=== PATIENT | male | born 1965 | race Caucasian/White ===

== ENCOUNTER 2023-03-17 12:44 | Inpatient (IN) | payer SELFPAY ==
[2023-03-17] VITALS (7 sets, daily range): BP systolic 102–165; BP diastolic 52–84; PULSE 90–114; RESP 17–18; TEMP 36.4–38.2; O2SAT 92–98; BMI 26.5
--- NOTE | 2023-03-17 13:35 | XRR_ITS ---
PROCEDURE INFORMATION: Exam: XR Soft Tissue Neck Exam date and time: 03/17/2023 1:51 PM Age: 58 years old Clinical indication: Cellulitis of neck; Additional info: Spide bite posterior neck, large mass, cellulitis vs abscess TECHNIQUE: Imaging protocol: Radiologic exam of the soft tissues of the neck. COMPARISON: No relevant prior studies available. FINDINGS: Airway: Normal. No abnormal narrowing. Soft tissues: Normal epiglottis. Normal precervical soft tissues. Partially visualized posterior neck soft tissue fullness. Bones/joints: Partially obscured cervical spine. Degenerative changes along the imaged portion. XR/XR soft tissue neck [id number] IMPRESSION: Partially visualized posterior neck soft tissue fullness. Cannot distinguish cellulitis or abscess on this exam. Consider contrast-enhanced neck CT.
--- NOTE | 2023-03-17 14:08 | CTR_ITS ---
PROCEDURE INFORMATION: Exam: CT Neck With Contrast Exam date and time: 03/17/2023 2:58 PM Age: 58 years old Clinical indication: Cellulitis of neck; Additional info: Post soft tissue neck mass vs abscess TECHNIQUE: Imaging protocol: Computed tomography of the neck with contrast. Radiation optimization: All CT scans at this facility use at least one of these dose optimization techniques: automated exposure control; mA and/or kV adjustment per patient size (includes targeted exams where dose is matched to clinical indication); or iterative reconstruction. Contrast material: OMNI 350; Contrast volume: 100 ml; Contrast route: INTRAVENOUS (IV); REPORTING DATA: Count of CT and Cardiac NM exams in prior 12 months: This patient has received 0 known CTs and 0 known cardiac nuclear medicine studies in the 12 months prior to the current study. COMPARISON: CR XR soft tissue neck [id number] 03/17/2023 1:51 PM RADIATION DOSE METRICS: Total DLP (mGy-cm): 231.99 FINDINGS: Paranasal sinuses: Mild left maxillary sinus mucosal thickening. Dental: Multiple carious teeth. Pharynx: Unremarkable. No significant tonsillar enlargement. Larynx: Unremarkable. Epiglottis is normal. Prevertebral and retropharyngeal spaces: Unremarkable. Salivary glands: Normal. Glands are normal in size. Thyroid: Normal. No enlarged or calcified nodules. Lymph nodes: Unremarkable. No lymphadenopathy. Trachea: Visualized trachea is unremarkable. Lungs: Unremarkable as visualized. Bones/joints: No acute fracture. Multilevel cervical spine degenerative changes greatest at C5-C6 with severe right neural foraminal narrowing. Vasculature: Two vessel left aortic arch. Mild atherosclerotic calcification. Soft tissues: Diffuse soft tissue infiltration of the posterior neck subcutaneous layer without rim enhancing fluid collection. This extends along the subjacent musculature without definite intervening fat plane at some areas. 2 cm nodular ill-defined soft tissue density at the upper left anterior chest superficial subcutaneous layer on axial image 105 of series 3. Partially visualized skin thickening also at the left anterior chest, axial image [address]/CT neck w con* [id number] IMPRESSION: 1. Posterior neck soft tissue findings may be seen in the setting of cellulitis. No rim enhancing abscess. There may be some infiltration of the subjacent musculature, although this is difficult to assess on CT. Correlate with clinical findings and consideration for MRI if indicated. 2. Additional left anterior chest nodular abnormalities as above. Recommend direct visualization. 3. Multilevel cervical spine degenerative changes greatest at C5-C6 with severe right neural foraminal narrowing. 4. Multiple carious teeth.
[2023-03-17 14:10] LABS: Basophils # 0.1 10^3/uL (0.0-0.1); Basophils % 0.3 %; Eosinophils # 0.1 10^3/uL (0.0-0.8); Eosinophils % 0.3 %; Hemoglobin 15.1 g/dL (11.7-16.6); Lymphocytes # 1.2 10^3/uL (0.8-4.8); Lymphocytes % 4.9 %; Mean Corpuscular HGB Conc 34.3 g/dL (30.0-36.0); Mean Corpuscular Hemoglobin 28.2 pg (28.0-34.0); Mean Corpuscular Volume 82.1 fl (80-94); Mean Platelet Volume 10.1 fL (7.4-10.4); Monocytes # 0.9 10^3/uL (0.2-0.9); Neutrophils # 20.96 10^3/uL (1.8-7.7); Neutrophils % 89.8 %; Nucleated Red Blood Cells % 0 %; Platelet Count 396 10^3/cmm (130-400); Red Blood Count 5.36 10^6/uL (4.1-5.3); Red Cell Distribution Width 12.3 % (12.1-15.1); White Blood Count 23.3 10^3/uL (4.0-10.0)
--- NOTE | 2023-03-17 14:20 | W.ED.SKABFB ---
HPI - Skin/Abscess/Foreign Bdy General: Chief complaint: Skin/Abscess/Foreign Body Stated complaint: possible spider bite Time Seen by Provider: 03/17/23 13:32 History of Present Illness: Presents to the ER with complaints of possible bitten by christofer smith approximately 1 week ago. Patient has 3 bite wounds 1 on the back of his posterior neck 2 on left anterior chest all of these are red swollen irritated and tender to palpation. Patient reports some weakness starting today along with nausea and vomiting secondary to the pain. Patient did not see the spider bite him and he has never had a thing like this before. Review of Systems General: Reports: 10 or more systems reviewed and unremarkable except in HPI and below Physical Exam Const: COMMON NORMALS: no acute distress, average body habitus, patient oriented x3, healthy appearing, alert and well nourished HENMT: COMMON NORMALS: normocephalic, atraumatic, hearing grossly normal bilaterally, external ears normal, Normal external nose present and moist oral mucous membranes HEAD & SCALP: normocephalic and atraumatic NOSE: Normal external nose present EXTERNAL EAR: Yes external ears normal Neck/C-Spine: COMMON NORMALS: no JVD OTHER: There is a very large approximately 10 cm x 16 cm x 2 cm soft tissue mass which could be induration/cellulitis or an abscess although no parris fluctuance was noted. The area is erythematous indurated and tender to palpate. Chest: COMMONS NORMALS: normal inspection of the chest (There are 2 soft tissue masses which could be abscesses versus indurated ce) and normal palpation of entire chest wall OTHER: Abscesses versus indurated/cellulitis areas. There is no gross fluctuance there is moderate erythema and tender to palpate Resp: COMMON NORMALS: normal respiratory effort, No retractions, No use of accessory muscles and clear to auscultation bilaterally AUSCULTATION: clear to auscultation bilaterally Cardio: COMMON NORMALS: no JVD, regular rate, regular rhythm, S1 normal heart sound present, S2 normal heart sound present, No gallops present (Cardio), No clicks present (Cardio), No murmurs present (Cardio) and No rub (Cardio) RATE: regular rate RHYTHM: regular rhythm HEART SOUNDS: S1 normal heart sound present and S2 normal heart sound present GI: COMMON NORMALS: Normal to inspection, nondistended, normoactive bowel sounds present, Soft to palpation, non-tender, No hepatosplenomegaly present and no masses PALPATION: Yes Soft to palpation and Yes No hepatosplenomegaly present : COMMON NORMALS: Yes no CVA tenderness BLADDER/KIDNEY EXAM: Yes no CVA tenderness Back/Pelvis: COMMON NORMALS: no CVA tenderness Neuro: COMMON NORMALS: patient oriented x3 SENSORIUM/ORIENTATION: Yes alert Course Vital Signs: Vital signs: Vital Signs Temperature 97.5 F L 03/17/23 13:01 Pulse Rate 103 H 03/17/23 14:00 Respiratory Rate 18 03/17/23 14:00 Blood Pressure 117/82 03/17/23 14:00 Pulse Oximetry 97 03/17/23 14:00 Oxygen Delivery Me thod Room Air 03/17/23 14:00 MDM - Skin/Abscess/Foreign Bdy Medicial Decision Making Presents to the ER with complaints of possible spider bite on the back of his neck and 2 times on his left chest wall. Physical exam was performed lab work was obtained as well as ultrasound and CT. White blood cell was raised at 23,000 and sugar was raised at 396 and lactic acid was 2.9. CRP was 347 patient was bolused with 2 L normal saline fluid, 10 units of IV insulin and 3.375 g of Zosyn was given. Dr. Call was consulted for further evaluation and treatment. Dr. Call agreed for admission with observation for IV antibiotics. Differential Diagnosis Likely abscess of skin or subcutaneous tissue, cellulitis and insect bites; Unlikely viral exanthem, dermatophytosis, urticaria, herpes zoster, allergic reaction to drug, eczema, impetigo or contact dermatitis Medical Records I reviewed the patient's medical records. Lab Data I reviewed the patient's lab results. 03/17/23 13:51 03/17/23 13:51 Radiology Impressions Soft Tissue Neck X-Ray 03/17/23 13:35 IMPRESSION: Partially visualized posterior neck soft tissue fullness. Cannot distinguish cellulitis or abscess on this exam. Consider contrast-enhanced neck CT. Neck CT 03/17/23 14:08 IMPRESSION: 1. Posterior neck soft tissue findings may be seen in the setting of cellulitis. No rim enhancing abscess. There may be some infiltration of the subjacent musculature, although this is difficult to assess on CT. Correlate with clinical findings and consideration for MRI if indicated. 2. Additional left anterior chest nodular abnormalities as above. Recommend direct visualization. 3. Multilevel cervical spine degenerative changes greatest at C5-C6 with severe right neural foraminal narrowing. 4. Multiple carious teeth. Laboratory Results WBC 23.3 10^3/uL (4.0-10.0) H 03/17/23 13:51 RBC 5.36 10^6/uL (4.1-5.3) H 03/17/23 13:51 Hgb 15.1 g/dL (11.7-16.6) 03/17/23 13:51 Hct 44.0 % (42.0-52.0) 03/17/23 13:51 MCV 82.1 fl (80-94) 03/17/23 13:51 MCH 28.2 pg (28.0-34.0) 03/17/23 13:51 MCHC 34.3 g/dL (30.0-36.0) 03/17/23 13:51 RDW 12.3 % (12.1-15.1) 03/17/23 13:51 Plt Count 396 10^3/cmm (130-400) 03/17/23 13:51 MPV 10.1 fL (7.4-10.4) 03/17/23 13:51 Neut % (Auto) 89.8 % 03/17/23 13:51 Lymph % (Auto) 4.9 % 03/17/23 13:51 Maverick % (Auto) 4.0 % 03/17/23 13:51 Eos % (Auto) 0.3 % 03/17/23 13:51 Baso % (Auto) 0.3 % 03/17/23 13:51 Neut # (Auto) 20.96 10^3/uL (1.8-7.7) H 03/17/23 13:51 Lymph # (Auto) 1.2 10^3/uL (0.8-4.8) 03/17/23 13:51 Maverick # (Auto) 0.9 10^3/uL (0.2-0.9) 03/17/23 13:51 Eos # (Auto) 0.1 10^3/uL (0.0-0.8) 03/17/23 13:51 Baso # (Auto) 0.1 10^3/uL (0.0-0.1) 03/17/23 13:51 Nucleated RBC % (auto) 0 % 03/17/23 13:51 Nucleated RBCs # 0.0 /100WBC 03/17/23 13:51 Sodium 129 mmol/L (136-145) L 03/17/23 13:51 Potassium 4.2 mmol/L (3.5-5.1) 03/17/23 13:51 Chloride 89 mmol/L (98-107) L 03/17/23 13:51 Carbon Dioxide 25 mmol/L (22-29) 03/17/23 13:51 Anion Gap 19.2 (5-19) H 03/17/23 13:51 BUN 15 mg/dL (8-23) 03/17/23 13:51 Creatinine 0.9 mg/dL (0.7-1.2) 03/17/23 13:51 GFR Calculation 86.1 mL/min (90-130) L 03/17/23 13:51 Glucose 396 mg/dL (65-115) H 03/17/23 13:51 Calculated Osmolality 285 mOsm/kg (285-295) 03/17/23 13:51 Lactic Acid 2.9 mmol/L (0.5-2.2) H 03/17/23 13:51 Calcium 9.9 mg/dL (8.5-10.5) 03/17/23 13:51 Total Bilirubin 0.6 mg/dL (0.15-1.2) 03/17/23 13:51 AST 17 U/L (0-40) 03/17/23 13:51 ALT 13 U/L (0-41) 03/17/23 13:51 Alkaline Phosphatase 214 U/L (40-130) H 03/17/23 13:51 C-Reactive Protein 347.8 mg/L (0.0-4.9) H 03/17/23 13:51 Total Protein 8.8 g/dL (6.6-8.7) H 03/17/23 13:51 Albumin 4.3 g/dL (3.5-5.2) 03/17/23 13:51 Globulin 4.5 g/dL (1.3-4.6) 03/17/23 13:51 Procalcitonin 0.33 ng/mL (0-0.5) 03/17/23 13:51 Discharge Plan Discharge Patient Disposition: Placed in Observation Clinical Impression: Cellulitis, Acute hyperglycemia, Elevated lactic acid level, Acute hyponatremia Condition: Stable Prescriptions: No Action acetaminophen 500 mg Tablet 1,000 mg PO Q6H PRN (Reason: Pain) Referrals: Champ Gregory MD [Primary Care Provider] - Coding Level of Care Code ED Dietary Worker for [facility]
[2023-03-17 14:23] LABS: Lactic Sepsis W/Reflex 2.9 mmol/L (0.5-2.2)
[2023-03-17] MEDS: ketorolac 30 mg/mL INJ IVP (14:25)
[2023-03-17 14:34] LABS: Alanine Aminotransferase 13 U/L (0-41); Albumin Level 4.3 g/dL (3.5-5.2); Alkaline Phosphatase 214 U/L (40-130); Anion Gap 19.2 (5-19); Aspartate Amino Transferase 17 U/L (0-40); Blood Urea Nitrogen 15 mg/dL (8-23); C Reactive Protein 347.8 mg/L (0.0-4.9); Calcium 9.9 mg/dL (8.5-10.5); Carbon Dioxide 25 mmol/L (22-29); Chloride 89 mmol/L (98-107); Globulin 4.5 g/dL (1.3-4.6); Glomerular Filtration Rate 86.1 mL/min (90-130); Glucose 396 mg/dL (65-115); Osmolality Calculated 285 mOsm/kg (285-295); Potassium 4.2 mmol/L (3.5-5.1); Sodium 129 mmol/L (136-145); Total Bilirubin 0.6 mg/dL (0.15-1.2); Total Protein 8.8 g/dL (6.6-8.7)
[2023-03-17 14:41] LABS: Procalcitonin 0.33 ng/mL (0-0.5)
[2023-03-17] MEDS: iohexol 350 mg/mL 500 mL Btl (per mL) IV (15:02)
[2023-03-17] MEDS: sodium chloride 0.9% 1,000 ML 999 ML IV ×2 (15:07→16:59)
[2023-03-17] MEDS: insulin regular-human 100 units/1 mL 10 UNIT IVP (15:36)
[2023-03-17 15:50] LABS: Reflex Lactate Order REFLEX LACTIC ORDERD
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
[2023-03-17] MEDS: piperacillin-tazobactam 3.375 GM in sodium chloride 0.9% (plus) 50 ML IV (15:58)
[2023-03-17 16:46] LABS: INR 1.15 (0.8-1.2)
[2023-03-17 16:53] LABS: Creatine Phosphokinase 38 U/L (39-308)
[2023-03-17 17:36] LABS: Lactic Acid level (Lactate) 1.8 mmol/L (0.5-2.2)
[2023-03-17] MEDS: cefTRIAXone 2,000 MG in sodium chloride 0.9% (plus) 50 ML 100 MG IV (19:13)
[2023-03-17 20:14] LABS: Estmated Average Glucose 249; Hemoglobin A1C 10.3 % (4.0-6.0)
[2023-03-17] MEDS: vancomycin 1,250 MG/250 ML PIGGYBACK 250 MG IV (20:25)
[2023-03-17] MEDS: oxyCODONE-APAP 5-325 mg Tablet 1 TAB PO (23:15)
[2023-03-18] VITALS (8 sets, daily range): BP systolic 123–168; BP diastolic 77–93; PULSE 91–102; RESP 15–19; TEMP 36.8–38.2; O2SAT 93–97
[2023-03-18 05:16] LABS: Basophils # 0.1 10^3/uL (0.0-0.1); Basophils % 0.3 %; Eosinophils # 0.1 10^3/uL (0.0-0.8); Eosinophils % 0.4 %; Hematocrit 37.2 % (42.0-52.0); Hemoglobin 12.7 g/dL (11.7-16.6); Lymphocytes % 4.4 %; Mean Corpuscular HGB Conc 34.1 g/dL (30.0-36.0); Mean Corpuscular Hemoglobin 28.1 pg (28.0-34.0); Mean Corpuscular Volume 82.3 fl (80-94); Monocytes # 1.5 10^3/uL (0.2-0.9); Monocytes % 6.3 %; Neutrophils # 20.41 10^3/uL (1.8-7.7); Neutrophils % 86.4 %; Nucleated Red Blood Cells % 0 %; Platelet Count 329 10^3/cmm (130-400); Red Blood Count 4.52 10^6/uL (4.1-5.3); Red Cell Distribution Width 12.2 % (12.1-15.1); White Blood Count 23.7 10^3/uL (4.0-10.0)
[2023-03-18 05:34] LABS: Anion Gap 16.2 (5-19); Blood Urea Nitrogen 10 mg/dL (8-23); Calcium 8.7 mg/dL (8.5-10.5); Carbon Dioxide 23 mmol/L (22-29); Chloride 95 mmol/L (98-107); Glomerular Filtration Rate 98.6 mL/min (90-130); Glucose 298 mg/dL (65-115); Magnesium 1.8 mg/dL (1.7-2.3); Osmolality Calculated 280 mOsm/kg (285-295); Phosphorus 2.8 mg/dL (2.5-4.5); Potassium 4.2 mmol/L (3.5-5.1); Sodium 130 mmol/L (136-145)
[2023-03-18] MEDS: vancomycin 1,250 MG/250 ML PIGGYBACK 250 MG IV ×2 (06:06→18:11)
[2023-03-18] MEDS: oxyCODONE-APAP 5-325 mg Tablet 1 TAB PO ×3 (07:55→16:59)
--- NOTE | 2023-03-18 15:15 | P.PN_ITS ---
Subjective Subjective: Patient reports night sweats overnight. Reports neck pain, swelling and erythema is about the same as yesterday. Discussed diagnosis of type 2 diabetes mellitus which is currently uncontrolled with an A1c of 10.3. We discussed initial management of diabetes and the various different treatment options. Multiple questions were answered to both patient and his 2 friends present. He denies any fevers, chills, nausea or emesis. Vitals/I&O/Wt Last Vital Signs Temp 100.8 F H 03/18/23 12:00 Pulse 91 03/18/23 12:00 Resp 16 03/18/23 12:00 BP 123/78 03/18/23 12:00 Pulse Ox 96 03/18/23 12:00 O2 Del Method Room Air 03/18/23 03:16 03/18/23 03/18/23 03/18/23 06:59 14:59 22:59 Intake Total 730 / 730 Balance 730 / 730 Weight last 48 hrs Weight 83.915 kg Physical Exam Narrative: General: Patient is awake and alert. Lying in bed. Appears fatigued. Head: Normocephalic. Atraumatic. EOM intact. Neck: No JVD. Persistent circular area on posterior neck that is raised, e dematous, and erythemic. The same area is tender to palpation. Presentation is similar to yesterday's exam with minimal change. Cardiovascular: RRR. No gallops. No murmurs. Chest: Multiple areas similar to the area on his posterior neck circular edematous and erythemic areas. These areas are also tender to palpation. These look similar to yesterday's presentation without significant change. Lungs: Clear to auscultation, no use of accessory muscles, no crackles or wheezes. Skin: No jaundice. No rashes. Abdomen: Normal bowel sounds, abdomen soft and nontender. Extremities: No cyanosis or clubbing. Musculoskeletal: No erythematous joints. Neurological: Moves all 4 extremities. No myoclonus. Data 03/18/23 04:52 03/18/23 04:52 Micro: Microbiology 03/17/23 14:11 Blood Culture - Preliminary Blood NEGATIVE TO DATE 03/17/23 13:51 Blood Culture - Preliminary Blood NEGATIVE TO DATE A&P Assessment and plan (1) Cellulitis: Patient is persistently febrile currently 100.8 Multiple areas of cellulitis including posterior neck and multiple lesions on left upper chest Suspect initial insult with some type of bite Blood cultures are pending Persistent leukocytosis Little or no change on physical exam, patient not responding to treatment as well as intended Continue vancomycin, pharmacy to dose (03/17-P) Continue Rocephin () Serial exams Analgesics as needed Qualifiers: Site of cellulitis: neck Qualified Code(s): L03.221 - Cellulitis of neck (2) Acute hyperglycemia: Newly diagnosed type 2 diabetes mellitus, uncontrolled with hyperglycemia A1c 10.3 Patient reports family history of type 2 diabetes in his mother Starting diabetes education Start Lantus tonight Start sliding scale insulin correction (3) Elevated lactic acid level: Secondary to infection Continue antibiotics (4) Acute hyponatremia: Working on glycemic control for pseudohyponatremia (5) Leukocytosis: Marked leukocytosis secondary to significant infection Plan DVT prophylaxis: Low risk CODE STATUS: Full code Attestations Medical Necessity Statement*: Patient requires ongoing hospitalization for IV antibiotics, insulin titration, and supportive care. Coding Level of Care Code Acute Code for [facility] Diagnoses Cellulitis L03.221 Site of cellulitis: neck Acute hyperglycemia R73.9 Elevated lactic acid level R79.89 Acute hyponatremia E87.1 Leukocytosis D72.829
--- NOTE | 2023-03-18 15:19 | PM.TDS ---
Transfer Summary Providers Date of Admission: 03/17/23 17:28 Date of Discharge/Transfer: 03/18/23 Attending Provider at Admission: Porfirio Call MD Attending Provider at Transfer: Porfirio Call MD Primary Care Provider: Champ Gregory MD Transfer Plans: Anticipated date of transfer: 03/18/23. Diagnoses at Discharge Discharge Diagnosis (1) Cellulitis: Status: Acute Qualifiers: Site of cellulitis: neck Qualified Code(s): L03.221 - Cellulitis of neck (2) Acute hyperglycemia: Status: Acute (3) Elevated lactic acid level: Status: Acute (4) Acute hyponatremia: Status: Acute (5) Leukocytosis: Status: Acute Reason for Visit Reason for Visit possible spider bite TS Data Studies Completed and Pending Pending at discharge Category Date Time Status Blood Culture Stat Lab 03/17/23 14:11 Results Vancomycin Trough Timed Lab 03/19/23 06:00 Ordered Labs from last 24 hours 03/18/23 03/18/23 03/17/23 04:52 04:52 17:02 WBC 23.7 H RBC 4.52 Hgb 12.7 Hct 37.2 L MCV 82.3 MCH 28.1 MCHC 34.1 RDW 12.2 Plt Count 329 MPV 10.0 Neut % (Auto) 86.4 Lymph % (Auto) 4.4 [place] % (Auto) 6.3 Eos % (Auto) 0.4 Baso % (Auto) 0.3 Neut # (Auto) 20.41 H Lymph # (Auto) 1.0 [place] # (Auto) 1.5 H Eos # (Auto) 0.1 Baso # (Auto) 0.1 Nucleated RBC % (auto) 0 Nucleated RBCs # 0.0 PT INR Sodium 130 L Potassium 4.2 Chloride 95 L Carbon Dioxide 23 Anion Gap 16.2 BUN 10 Creatinine 0.8 GFR Calculation 98.6 Glucose 298 H Estimat Average Glucose Hemoglobin A1c Calculated Osmolality 280 L Lactic Acid (Sepsis) 1.8 Calcium 8.7 Phosphorus 2.8 Magnesium 1.8 Creatine Kinase 03/17/23 03/17/23 03/17/23 13:51 13:51 13:51 WBC RBC Hgb Hct MCV MCH MCHC RDW Plt Count MPV Neut % (Auto) Lymph % (Auto) [place] % (Auto) Eos % (Auto) Baso % (Auto) Neut # (Auto) Lymph # (Auto) [place] # (Auto) Eos # (Auto) Baso # (Auto) Nucleated RBC % (auto) Nucleated RBCs # PT 15.10 H INR 1.15 Sodium Potassium Chloride Carbon Dioxide Anion Gap BUN Creatinine GFR Calculation Glucose Estimat Average Glucose 249 Hemoglobin A1c 10.3 H Calculated Osmolality Lactic Acid (Sepsis) Calcium Phosphorus Magnesium Creatine Kinase 38 L Completed Studies During Hospitalization Category Date Time Status CT neck w con* [id number] Stat Cat Scan 03/17/23 14:08 Completed XR soft tissue neck [id number] Stat Exams 03/17/23 13:35 Completed Laboratory Last Values WBC 23.7 10^3/uL (4.0-10.0) H 03/18/23 04:52 RBC 4.52 10^6/uL (4.1-5.3) 03/18/23 04:52 Hgb 12.7 g/dL (11.7-16.6) 03/18/23 04:52 Hct 37.2 % (42.0-52.0) L 03/18/23 04:52 MCV 82.3 fl (80-94) 03/18/23 04:52 MCH 28.1 pg (28.0-34.0) 03/18/23 04:52 MCHC 34.1 g/dL (30.0-36.0) 03/18/23 04:52 RDW 12.2 % (12.1-15.1) 03/18/23 04:52 Plt Count 329 10^3/cmm (130-400) 03/18/23 04:52 MPV 10.0 fL (7.4-10.4) 03/18/23 04:52 Neut % (Auto) 86.4 % 03/18/23 04:52 Lymph % (Auto) 4.4 % 03/18/23 04:52 [place] % (Auto) 6.3 % 03/18/23 04:52 Eos % (Auto) 0.4 % 03/18/23 04:52 Baso % (Auto) 0.3 % 03/18/23 04:52 Neut # (Auto) 20.41 10^3/uL (1.8-7.7) H 03/18/23 04:52 Lymph # (Auto) 1.0 10^3/uL (0.8-4.8) 03/18/23 04:52 [place] # (Auto) 1.5 10^3/uL (0.2-0.9) H 03/18/23 04:52 Eos # (Auto) 0.1 10^3/uL (0.0-0.8) 03/18/23 04:52 Baso # (Auto) 0.1 10^3/uL (0.0-0.1) 03/18/23 04:52 Nucleated RBC % (auto) 0 % 03/18/23 04:52 Nucleated RBCs # 0.0 /100WBC 03/18/23 04:52 PT 15.10 SECONDS (12.1-14.9) H 03/17/23 13:51 INR 1.15 (0.8-1.2) 03/17/23 13:51 Sodium 130 mmol/L (136-145) L 03/18/23 04:52 Potassium 4.2 mmol/L (3.5-5.1) 03/18/23 04:52 Chloride 95 mmol/L (98-107) L 03/18/23 04:52 Carbon Dioxide 23 mmol/L (22-29) 03/18/23 04:52 Anion Gap 16.2 (5-19) 03/18/23 04:52 BUN 10 mg/dL (8-23) 03/18/23 04:52 Creatinine 0.8 mg/dL (0.7-1.2) 03/18/23 04:52 GFR Calculation 98.6 mL/min (90-130) 03/18/23 04:52 Glucose 298 mg/dL (65-115) H 03/18/23 04:52 Estimat Average Glucose 249 03/17/23 13:51 Hemoglobin A1c 10.3 % (4.0-6.0) H 03/17/23 13:51 Calculated Osmolality 280 mOsm/kg (285-295) L 03/18/23 04:52 Lactic Acid 2.9 mmol/L (0.5-2.2) H 03/17/23 13:51 Lactic Acid (Sepsis) 1.8 mmol/L (0.5-2.2) 03/17/23 17:02 Calcium 8.7 mg/dL (8.5-10.5) 03/18/23 04:52 Phosphorus 2.8 mg/dL (2.5-4.5) 03/18/23 04:52 Magnesium 1.8 mg/dL (1.7-2.3) 03/18/23 04:52 Total Bilirubin 0.6 mg/dL (0.15-1.2) 03/17/23 13:51 AST 17 U/L (0-40) 03/17/23 13:51 ALT 13 U/L (0-41) 03/17/23 13:51 Alkaline Phosphatase 214 U/L (40-130) H 03/17/23 13:51 Creatine Kinase 38 U/L (39-308) L 03/17/23 13:51 C-Reactive Protein 347.8 mg/L (0.0-4.9) H 03/17/23 13:51 Total Protein 8.8 g/dL (6.6-8.7) H 03/17/23 13:51 Albumin 4.3 g/dL (3.5-5.2) 03/17/23 13:51 Globulin 4.5 g/dL (1.3-4.6) 03/17/23 13:51 Procalcitonin 0.33 ng/mL (0-0.5) 03/17/23 13:51 Radiology Impressions Soft Tissue Neck X-Ray 03/17/23 13:35 IMPRESSION: Partially visualized posterior neck soft tissue fullness. Cannot distinguish cellulitis or abscess on this exam. Consider contrast-enhanced neck CT. Neck CT 03/17/23 14:08 IMPRESSION: 1. Posterior neck soft tissue findings may be seen in the setting of cellulitis. No rim enhancing abscess. There may be some infiltration of the subjacent musculature, although this is difficult to assess on CT. Correlate with clinical findings and consideration for MRI if indicated. 2. Additional left anterior chest nodular abnormalities as above. Recommend direct visualization. 3. Multilevel cervical spine degenerative changes greatest at C5-C6 with severe right neural foraminal narrowing. 4. Multiple carious teeth. Recent Clincial Data Last Vital Signs Temp 100.8 F H 03/18/23 12:00 Pulse 91 03/18/23 12:00 Resp 16 03/18/23 12:00 BP 123/78 03/18/23 12:00 Pulse Ox 96 03/18/23 12:00 O2 Del Method Room Air 03/18/23 03:16 Vital Signs Temp Pulse Resp BP Pulse Ox 03/18/23 12:00 100.8 F H 91 16 123/78 96 03/18/23 11:41 16 96 03/18/23 08:00 98.6 F 102 H 16 131/77 96 03/18/23 07:55 18 97 Intake & Output/Weight 03/16/23 03/17/23 03/18/23 03/19/23 06:59 06:59 06:59 06:59 Intake Total 2350 / 2350 730 / 730 Balance 2350 / 2350 730 / 730 Weight 83.915 kg Vitals Last Vital Signs Temp 100.8 F H 03/18/23 12:00 Pulse 91 03/18/23 12:00 Resp 16 03/18/23 12:00 BP 123/78 03/18/23 12:00 Pulse Ox 96 03/18/23 12:00 O2 Del Method Room Air 03/18/23 03:16 TS Medications Medications Acetaminophen (Acetaminophen 500 Mg Tablet) 1,000 mg PO Q6H PRN PRN Reason: Pain Calcium Carbonate (Calcium Carbonate 500 Mg Chew Tablet) 1,000 mg PO Q4H PRN PRN Reason: DYSPEPSI Dextrose (Dextrose 50% Syringe 50 Ml) 50 ml IVP PRN PRN; Protocol PRN Reason: hypoglycemia protocol Dextrose (Dextrose 50% Syringe 50 Ml) 25 ml IVP ONCE PRN; Protocol PRN Reason: hypoglycemia protocol Glucagon (Glucagon 1 Mg/Ml Inj 1 Ml) 1 mg IM ONCE PRN; Protocol PRN Reason: Adult Acute Hypoglycemia Prot. Vancomycin/PEG/NADA/Lysine/Water (Vancocin) 1,250 mg in 250 mls @ 250 mls/hr IV Q12H JAQUELINE Last Infusion: 03/18/23 07:39 Dose: Infused Dextrose (D5w) 500 mls @ 100 mls/hr IV ONCE PRN; Protocol PRN Reason: Adult Acute Hypoglycemia Prot Ceftriaxone Sodium 2,000 mg/ (Sodium Chloride) 50 mls @ 100 mls/hr IV Q24H JAQUELINE; Protocol Insulin Glargine (Insulin Glargine 100 Units/1 Ml) 10 unit SUBCUT BEDTIME JAQUELINE Insulin Human Lispro (Insulin Lispro 100 Unit/1 Ml) 0 unit SUBCUT WM&BEDTIME JAQUELINE; Protocol Ketorolac Tromethamine (Ketorolac 30 Mg/Ml Inj) 15 mg IVP Q6H PRN PRN Reason: MODERATE PAIN Stop: 03/22/23 18:30 Ondansetron HCl (Ondansetron 4 Mg Tablet) 4 mg PO Q8H PRN PRN Reason: NAUSEA Oxycodone/Acetaminophen (Oxycodone-Apap 5-325 Mg Tablet) 1 tab PO Q4H PRN PRN Reason: SEVERE PAIN Last Admin: 03/18/23 11:41 Dose: 1 tab Discontinued Medications Sodium Chloride (Sodium Chloride 0.9%) 1,000 mls @ 999 mls/hr IV .Q1H1M JAQUELINE Stop: 03/17/23 16:45 Last Infusion: 03/17/23 18:28 Dose: Infused Piperacillin Sod/Tazobactam (Sod 3.375 gm/ Sodium Chloride) 50 mls @ 100 mls/hr IV ONCE ONE; Protocol Stop: 03/17/23 16:04 Last Infusion: 03/17/23 16:36 Dose: Infused Ceftriaxone Sodium 2,000 mg/ (Sodium Chloride) 50 mls @ 100 mls/hr IV ONCE ONE; Protocol Stop: 03/17/23 19:00 Last Infusion: 03/17/23 20:35 Dose: Infused Insulin Human Regular (Insulin Regular-Human 100 Units/1 Ml) 10 unit IVP ONCE ONE Stop: 03/17/23 15:24 Last Admin: 03/17/23 15:36 Dose: 10 unit Iohexol (Iohexol 350 Mg/Ml 500 Ml Btl (Per Ml)) 0 ml IV ONCE ONE Stop: 03/17/23 15:03 Last Admin: 03/17/23 15:02 Dose: 100 ml Ketorolac Tromethamine (Ketorolac 30 Mg/Ml Inj) 30 mg IVP ONCE ONE Stop: 03/17/23 14:21 Last Admin: 03/17/23 14:25 Dose: 30 mg Allergies No Known Allergies Allergy (Verified 03/17/23 16:16) Home Medications acetaminophen 500 mg tablet 1,000 mg PO Q6H PRN Pain 03/17/23 [History Confirmed 03/17/23] Discharge Plan Discharge Patient Disposition: Home Condition: Stable Prescriptions: No Action acetaminophen 500 mg Tablet 1,000 mg PO Q6H PRN (Reason: Pain) Patient Instructions: Opioid Safety Coding Level of Care Code Acute Code for [facility] Diagnoses Cellulitis L03.221 Site of cellulitis: neck Acute hyperglycemia R73.9 Elevated lactic acid level R79.89 Acute hyponatremia E87.1 Leukocytosis D72.829
[2023-03-18] MEDS: insulin lispro 100 unit/1 mL SUBCUT ×2 (17:00→20:45)
[2023-03-18] MEDS: cefTRIAXone 2,000 MG in sodium chloride 0.9% (plus) 50 ML 100 MG IV (17:00)
[2023-03-18 17:02] LABS: Glucose Point of Care 326 mg/dL (70-110)
[2023-03-18 20:38] LABS: Glucose Point of Care 237 mg/dL (70-110)
[2023-03-18] MEDS: insulin glargine 100 units/1 mL 10 UNIT SUBCUT (20:44)
[2023-03-19] VITALS (7 sets, daily range): BP systolic 125–147; BP diastolic 66–78; PULSE 82–86; RESP 16–19; TEMP 35.8–37.2; O2SAT 93–100
[2023-03-19] MEDS: oxyCODONE-APAP 5-325 mg Tablet 1 TAB PO ×3 (01:10→17:24)
[2023-03-19 06:03] LABS: Basophils % 0.2 %; Eosinophils # 0.2 10^3/uL (0.0-0.8); Eosinophils % 0.8 %; Hematocrit 34.7 % (42.0-52.0); Hemoglobin 11.7 g/dL (11.7-16.6); Lymphocytes # 1.2 10^3/uL (0.8-4.8); Lymphocytes % 5.5 %; Mean Corpuscular HGB Conc 33.7 g/dL (30.0-36.0); Mean Corpuscular Hemoglobin 27.9 pg (28.0-34.0); Mean Corpuscular Volume 82.6 fl (80-94); Mean Platelet Volume 9.7 fL (7.4-10.4); Monocytes # 1.1 10^3/uL (0.2-0.9); Monocytes % 5.3 %; Neutrophils # 18.26 10^3/uL (1.8-7.7); Neutrophils % 87.1 %; Nucleated Red Blood Cells % 0 %; Platelet Count 316 10^3/cmm (130-400); Red Cell Distribution Width 12.2 % (12.1-15.1)
[2023-03-19] MEDS: vancomycin 1,250 MG/250 ML PIGGYBACK 250 MG IV (06:10)
[2023-03-19 06:19] LABS: Alanine Aminotransferase 11 U/L (0-41); Albumin Level 2.8 g/dL (3.5-5.2); Alkaline Phosphatase 118 U/L (40-130); Anion Gap 13.7 (5-19); Aspartate Amino Transferase 12 U/L (0-40); Blood Urea Nitrogen 9 mg/dL (8-23); Calcium 8.8 mg/dL (8.5-10.5); Carbon Dioxide 26 mmol/L (22-29); Chloride 93 mmol/L (98-107); Globulin 3.6 g/dL (1.3-4.6); Glucose 150 mg/dL (65-115); Magnesium 1.8 mg/dL (1.7-2.3); Osmolality Calculated 270 mOsm/kg (285-295); Phosphorus 3.3 mg/dL (2.5-4.5); Potassium 3.7 mmol/L (3.5-5.1); Sodium 129 mmol/L (136-145); Total Bilirubin 0.3 mg/dL (0.15-1.2); Total Protein 6.4 g/dL (6.6-8.7)
[2023-03-19 06:42] LABS: Glucose Point of Care 140 mg/dL (70-110)
--- NOTE | 2023-03-19 10:51 | PM.PN ---
Subjective Subjective: Patient endorses persistent night sweats overnight. Reports increased drainage from posterior neck wound, now with bandage over wound due to drainage. States the wounds on his chest seem to be a little better. Denies fevers, chills, nausea, abdominal pain or headaches. Medications: Reviewed: Yes Vitals/I&O/Wt Last Vital Signs Temp 98.9 F 03/19/23 04:25 Pulse 83 03/19/23 04:25 Resp 16 03/19/23 06:33 BP 137/66 03/19/23 04:25 Pulse Ox 96 03/19/23 06:33 O2 Del Method Room Air 03/18/23 03:16 03/18/23 03/19/23 03/19/23 22:59 06:59 14:59 Intake Total 660 / 1390 250 / 250 Balance 660 / 1390 250 / 250 Weight last 48 hrs Weight 83.915 kg Physical Exam Narrative: General: Patient is awake and alert.? Lying in bed.? Head:? Normocephalic. Atraumatic. Neck: No JVD.? Persistent circular area on posterior neck that is raised, edematous, and erythemic, now with yellowish-white pus draining through skin breaks.? Cardiovascular: RRR. No gallops. No murmurs. Chest: Multiple areas similar to the area on his posterior neck circular edematous and erythemic areas.? These areas are showing signs of improvement, albiet mild. Lungs: Clear to auscultation, no use of accessory muscles, no crackles or wheezes. Skin: No jaundice. No rashes. Abdomen: Normal bowel sounds, abdomen soft and nontender. Extremities: No cyanosis or clubbing. Musculoskeletal: No erythematous joints. Neurological: Moves all 4 extremities. No myoclonus. Data 03/19/23 05:53 03/19/23 05:53 Micro: Microbiology 03/17/23 14:11 Blood Culture - Preliminary Blood NEGATIVE TO DATE 03/17/23 13:51 Blood Culture - Preliminary Blood NEGATIVE TO DATE A&P Assessment and plan (1) Cellulitis: Fevers are starting to improve Neck looking worse, infection likey declarying itself, may abscess still Follow cultures Continue vancomycin, pharmacy to dose (03/17-P) Continue Rocephin (03/17-) Serial exams Analgesics as needed Qualifiers: Site of cellulitis: neck Qualified Code(s): L03.221 - Cellulitis of neck (2) Acute hyperglycemia: Newly diagnosed type 2 diabetes mellitus, uncontrolled with hyperglycemia A1c 10.3 Patient reports family history of type 2 diabetes in his mother Continue Lantus Continue SSI Ongoing diabetes educations (3) Elevated lactic acid level: Secondary to infection Continue antibiotics (4) Acute hyponatremia: Monitor (5) Leukocytosis: Marked leukocytosis secondary to significant infection Plan DVT prophylaxis: Low risk CODE STATUS: Full code Attestations Medical Necessity Statement*: Patient requires ongoing hospitalization for IV antibiotics, cultures, and supportive care. Coding Level of Care Code Acute Code for [facility] Diagnoses Cellulitis L03.221 Site of cellulitis: neck Acute hyperglycemia R73.9 Elevated lactic acid level R79.89 Acute hyponatremia E87.1 Leukocytosis D72.829
[2023-03-19 11:25] LABS: Glucose Point of Care 220 mg/dL (70-110)
[2023-03-19] MEDS: insulin lispro 100 unit/1 mL SUBCUT ×3 (12:49→21:31)
[2023-03-19 17:14] LABS: Glucose Point of Care 203 mg/dL (70-110)
[2023-03-19] MEDS: cefTRIAXone 2,000 MG in sodium chloride 0.9% (plus) 50 ML 100 MG IV (18:29)
[2023-03-19] MEDS: vancomycin 1,500 MG/300 ML PIGGYBACK 250 MG IV (18:59)
[2023-03-19 20:43] LABS: Glucose Point of Care 220 mg/dL (70-110)
[2023-03-19] MEDS: insulin glargine 100 units/1 mL 10 UNIT SUBCUT (21:31)
[2023-03-20] VITALS (10 sets, daily range): BP systolic 121–154; BP diastolic 68–85; PULSE 76–83; RESP 16–18; TEMP 36.5–36.8; O2SAT 93–97
[2023-03-20] MEDS: oxyCODONE-APAP 5-325 mg Tablet 1 TAB PO ×4 (00:07→19:57)
[2023-03-20 05:41] LABS: Basophils # 0.1 10^3/uL (0.0-0.1); Basophils % 0.4 %; Eosinophils # 0.3 10^3/uL (0.0-0.8); Eosinophils % 1.8 %; Hematocrit 36.2 % (42.0-52.0); Lymphocytes # 1.3 10^3/uL (0.8-4.8); Lymphocytes % 8.2 %; Mean Corpuscular HGB Conc 33.1 g/dL (30.0-36.0); Mean Corpuscular Volume 84.4 fl (80-94); Mean Platelet Volume 9.9 fL (7.4-10.4); Monocytes # 0.9 10^3/uL (0.2-0.9); Monocytes % 5.2 %; Neutrophils # 13.57 10^3/uL (1.8-7.7); Neutrophils % 83.3 %; Nucleated Red Blood Cells % 0 %; Platelet Count 380 10^3/cmm (130-400); Red Blood Count 4.29 10^6/uL (4.1-5.3); Red Cell Distribution Width 12.3 % (12.1-15.1); White Blood Count 16.3 10^3/uL (4.0-10.0)
[2023-03-20 06:06] LABS: Anion Gap 12.8 (5-19); Blood Urea Nitrogen 10 mg/dL (8-23); Calcium 8.8 mg/dL (8.5-10.5); Carbon Dioxide 29 mmol/L (22-29); Chloride 97 mmol/L (98-107); Glucose 112 mg/dL (65-115); Phosphorus 3.9 mg/dL (2.5-4.5); Potassium 3.8 mmol/L (3.5-5.1); Sodium 135 mmol/L (136-145)
[2023-03-20] MEDS: vancomycin 1,500 MG/300 ML PIGGYBACK 250 MG IV ×2 (06:08→19:11)
[2023-03-20 06:43] LABS: Glucose Point of Care 136 mg/dL (70-110)
[2023-03-20 10:49] LABS: Glucose Point of Care 301 mg/dL (70-110)
[2023-03-20] MEDS: insulin lispro 100 unit/1 mL SUBCUT ×3 (12:06→21:55)
--- NOTE | 2023-03-20 14:43 | P.PN_ITS ---
Subjective Subjective: Patient reports increased white pus drainage from his posterior neck. He reports his chest lesions seem to be getting a little bit better. Continues to have some night sweats. Feeling better overall with control of his blood sugar. Request more information regarding his diabetes diagnosis. Medications: Reviewed: Yes Vitals/I&O/Wt Last Vital Signs Temp 97.8 F 03/20/23 11:49 Pulse 78 03/20/23 11:49 Resp 16 03/20/23 14:18 BP 121/68 03/20/23 11:49 Pulse Ox 94 03/20/23 11:49 O2 Del Method Room Air 03/18/23 03:16 03/19/23 03/20/23 03/20/23 22:59 06:59 14:59 Intake Total 590 / 1320 780 / 780 Balance 590 / 1320 780 / 780 Physical Exam Narrative: General: Patient is awake and alert.? Pleasant. Head:? Normocephalic. Neck: No JVD.? Persistent circular area on posterior neck that is taut, raised, edematous, and erythemic, with white pus draining through skin breaks.? Cardiovascular: RRR. No gallops. No murmurs. Chest: Multiple areas similar to the area on his posterior neck circular e dematous and erythemic areas.? These areas are improving. Lungs: Clear to auscultation, no use of accessory muscles, no crackles or wheezes. Skin: No jaundice. No rashes. Abdomen: Normal bowel sounds, abdomen soft and nontender. Extremities: No cyanosis or clubbing. Musculoskeletal: No erythematous joints. Neurological: Moves all 4 extremities. No myoclonus. Data 03/20/23 04:46 03/20/23 04:46 A&P Assessment and plan (1) Cellulitis: Continue vancomycin, pharmacy to dose (03/17-P) Continue Rocephin (03/17-P) Serial exams Analgesics as needed Increase neck drainage noted, May need to repeat imaging as abscess formation still possible Qualifiers: Site of cellulitis: neck Qualified Code(s): L03.221 - Cellulitis of neck (2) Acute hyperglycemia: Newly diagnosed type 2 diabetes mellitus, uncontrolled with hyperglycemia A1c 10.3 Continue Lantus Continue SSI Ongoing diabetes educations (3) Elevated lactic acid level: Secondary to infection Continue antibiotics (4) Acute hyponatremia: Nearly resolved (5) Leukocytosis: Marked leukocytosis secondary to significant infection Plan DVT prophylaxis: Low risk CODE STATUS: Full code Attestations Medical Necessity Statement*: Patient requires ongoing hospitalization for severe cellulitis with a propensity to form abscess formation from suspected bug bites requiring multiple IV antibiotics as well as newly diagnosed uncontrolled type 2 diabetes mellitus with hyperglycemia. Coding Level of Care Code Acute Code for [facility] Diagnoses Cellulitis L03.221 Site of cellulitis: neck Acute hyperglycemia R73.9 Elevated lactic acid level R79.89 Acute hyponatremia E87.1 Leukocytosis D72.829
[2023-03-20 17:06] LABS: Glucose Point of Care 177 mg/dL (70-110)
[2023-03-20] MEDS: cefTRIAXone 2,000 MG in sodium chloride 0.9% (plus) 50 ML 100 MG IV (17:54)
[2023-03-20 18:42] LABS: Vancomycin Trough 9.9 ug/mL (10-15)
[2023-03-20 20:39] LABS: Glucose Point of Care 222 mg/dL (70-110)
[2023-03-20] MEDS: insulin glargine 100 units/1 mL 10 UNIT SUBCUT (21:54)
[2023-03-21] VITALS (7 sets, daily range): BP systolic 128–162; BP diastolic 75–90; PULSE 74–90; RESP 16–18; TEMP 36.7–36.8; O2SAT 96–98
[2023-03-21] MEDS: oxyCODONE-APAP 5-325 mg Tablet 1 TAB PO ×2 (04:40→13:35)
[2023-03-21 05:14] LABS: Basophils # 0.1 10^3/uL (0.0-0.1); Basophils % 0.6 %; Eosinophils # 0.3 10^3/uL (0.0-0.8); Eosinophils % 2.9 %; Hematocrit 37.6 % (42.0-52.0); Hemoglobin 12.4 g/dL (11.7-16.6); Lymphocytes # 1.2 10^3/uL (0.8-4.8); Lymphocytes % 9.9 %; Mean Corpuscular Hemoglobin 28.4 pg (28.0-34.0); Mean Platelet Volume 9.5 fL (7.4-10.4); Monocytes # 0.7 10^3/uL (0.2-0.9); Neutrophils # 9.25 10^3/uL (1.8-7.7); Neutrophils % 79.2 %; Nucleated Red Blood Cells % 0 %; Platelet Count 372 10^3/cmm (130-400); Red Blood Count 4.37 10^6/uL (4.1-5.3); Red Cell Distribution Width 12.3 % (12.1-15.1); White Blood Count 11.7 10^3/uL (4.0-10.0)
[2023-03-21 05:29] LABS: Albumin Level 2.9 g/dL (3.5-5.2); Blood Urea Nitrogen 10 mg/dL (8-23); Calcium 8.5 mg/dL (8.5-10.5); Carbon Dioxide 26 mmol/L (22-29); Chloride 95 mmol/L (98-107); Glomerular Filtration Rate 137.4 mL/min (90-130); Glucose 168 mg/dL (65-115); Phosphorus 3.7 mg/dL (2.5-4.5); Sodium 130 mmol/L (136-145)
[2023-03-21] MEDS: vancomycin 1,500 MG/300 ML PIGGYBACK 250 MG IV (06:11)
[2023-03-21 06:42] LABS: Glucose Point of Care 177 mg/dL (70-110)
[2023-03-21] MEDS: insulin lispro 100 unit/1 mL SUBCUT ×4 (08:17→22:16)
--- NOTE | 2023-03-21 11:06 | USR_ITS ---
PROCEDURE INFORMATION: Exam: US Soft Tissue Head and Neck, Soft Tissue Exam date and time: 03/21/2023 11:52 AM Age: 58 years old Clinical indication: Neck pain; Additional info: Evaluate for abscess formation on posterior neck TECHNIQUE: Imaging protocol: Real-time ultrasound scan of the head and neck with image documentation. Exam focused on the soft tissue in the region of clinical concern. COMPARISON: CT neck w con* [id number] 03/17/2023 2:58 PM FINDINGS: Lymph nodes: No lymphadenopathy demonstrated on images. Soft tissues: In the area marked Location #1, at the anterior left chest, there is a 1.9 x 1.3 x 0.6 cm complex collection, with irregular borders. This collection is located approximately 0.3 cm deep to the surface of the skin. There is a probable tract identified, likely communicating with the surface of the skin. In the area marked Location #2, at the anterior left chest, there is a 2.7 x 2.7 x 1.1 cm complex collection, with irregular borders. This collection is located approximately 0.3 cm deep to the surface of the skin. There is a probable tract identified, likely communicating with the surface of the skin. In the area marked Location #3, at the posterior neck, there is a 5.0 x 5.0 x 1.6 cm complex collection. This collection is poorly visualized with indistinct borders and surrounding cobblestoning. This collection is located approximately 0.5 cm deep to the surface of the skin. Other findings: Clinical Program Coordinator reports that all 3 areas appear swollen and red and have pus draining. Clinical Program Coordinator reports that all 3 areas appear similar by ultrasound with mobile hypoechoic material. US/US soft tissue head neck [id number] IMPRESSION: Images demonstrate 3 distinct areas of phlegmon/developing abscess, with surrounding cellulitis, located in the anterior left chest and in the posterior neck.
[2023-03-21 11:32] LABS: Glucose Point of Care 207 mg/dL (70-110)
--- NOTE | 2023-03-21 13:39 | PC.NURSE ---
extensive education provided on DM including diet, medications, s/s of hypo and hyperglycemia and what to do in emergent situations. Pt and caregiver able to teach back provided education and deny further questions. Written material provided as well.
--- NOTE | 2023-03-21 15:29 | P.PN_ITS ---
Subjective Subjective: Patient reports the lesions on his chest seem to be getting better. He states that his neck still bothering him. He is having increased white purulent drainage on his pillow. Denies fevers, chills, nausea or emesis. Blood sugars are better controlled now. Encouraged ambulation he is agreeable. Medications: Reviewed: Yes Vitals/I&O/Wt Last Vital Signs Temp 98.3 F 03/21/23 11:35 Pulse 81 03/21/23 11:35 Resp 16 03/21/23 13:35 BP 128/75 03/21/23 11:35 Pulse Ox 97 03/21/23 11:35 O2 Del Method Room Air 03/18/23 03:16 03/21/23 03/21/23 03/21/23 06:59 14:59 22:59 Intake Total 1020 / 1020 Output Total 300 / 650 Balance -300 / 960 1020 / 1020 Physical Exam Narrative: General: Patient is awake and alert.? Pleasant. Sitting in bed. Head:? Normocephalic. Neck: No JVD.? Large area on posterior neck that is taut, raised, edematous, and erythemic, with white pus draining through skin breaks minimally changed from yesterday's exam Cardiovascular: RRR. No gallops. No murmurs. Chest: Multiple areas similar to the area on his posterior neck circular edematous and erythemic areas.? These areas continue to show improvement. 1 lesion is somewhat taut but improving in size. Lungs: Clear to auscultation, no use of accessory muscles, no crackles or wheezes. Skin: No jaundice. No rashes. Abdomen: Normal bowel sounds, abdomen soft and nontender. Extremities: No cyanosis or clubbing. Musculoskeletal: No erythematous joints. Neurological: Moves all 4 extremities. No myoclonus. Data 03/21/23 04:45 03/21/23 04:45 A&P Assessment and plan (1) Cellulitis: Continue vancomycin, pharmacy to dose (03/17-) Continue Rocephin (03/17-) Daily exams Analgesics as needed Repeat ultrasound today showed developing phlegmon/abscess General surgery consult, Dr Vidal agreed to see on Wednesday NPO after midnight pending general surgery evaluation Qualifiers: Site of cellulitis: neck Qualified Code(s): L03.221 - Cellulitis of neck (2) Acute hyperglycemia: Newly diagnosed type 2 diabetes mellitus, uncontrolled with hyperglycemia A1c 10.3 Continue Lantus Continue SSI Ongoing diabetes educations, nursing staff working hard on education (3) Elevated lactic acid level: Secondary to infection Continue antibiotics (4) Acute hyponatremia: Continue to monitor (5) Leukocytosis: Improving with treatment Plan DVT prophylaxis: Low risk CODE STATUS: Full code Attestations Medical Necessity Statement*: Patient requires ongoing hospitalization for IV antibiotics, insulin titration, diabetes management, and general surgery evaluation. Coding Level of Care Code Acute Code for [facility] Diagnoses Cellulitis L03.221 Site of cellulitis: neck Acute hyperglycemia R73.9 Elevated lactic acid level R79.89 Acute hyponatremia E87.1 Leukocytosis D72.829
[2023-03-21 16:52] LABS: Glucose Point of Care 217 mg/dL (70-110)
[2023-03-21] MEDS: cefTRIAXone 2,000 MG in sodium chloride 0.9% (plus) 50 ML 100 MG IV (17:23)
[2023-03-21 21:26] LABS: Glucose Point of Care 194 mg/dL (70-110)
[2023-03-21] MEDS: insulin glargine 100 units/1 mL 10 UNIT SUBCUT (22:16)
[2023-03-22] VITALS (19 sets, daily range): BP systolic 97–167; BP diastolic 63–93; PULSE 70–89; RESP 16–21; TEMP 36.3–36.9; O2SAT 91–98
[2023-03-22 05:43] LABS: Basophils # 0.1 10^3/uL (0.0-0.1); Basophils % 0.6 %; Eosinophils # 0.4 10^3/uL (0.0-0.8); Eosinophils % 3.2 %; Hemoglobin 12.9 g/dL (11.7-16.6); Lymphocytes # 1.3 10^3/uL (0.8-4.8); Lymphocytes % 10.8 %; Mean Corpuscular HGB Conc 33.1 g/dL (30.0-36.0); Mean Corpuscular Hemoglobin 27.6 pg (28.0-34.0); Mean Corpuscular Volume 83.5 fl (80-94); Mean Platelet Volume 9.5 fL (7.4-10.4); Monocytes # 0.7 10^3/uL (0.2-0.9); Monocytes % 5.4 %; Neutrophils # 9.56 10^3/uL (1.8-7.7); Nucleated Red Blood Cells % 0 %; Platelet Count 448 10^3/cmm (130-400); Red Blood Count 4.67 10^6/uL (4.1-5.3); Red Cell Distribution Width 12.3 % (12.1-15.1); White Blood Count 12.3 10^3/uL (4.0-10.0)
[2023-03-22 06:02] LABS: Albumin Level 3.3 g/dL (3.5-5.2); Blood Urea Nitrogen 10 mg/dL (8-23); Calcium 9.1 mg/dL (8.5-10.5); Carbon Dioxide 28 mmol/L (22-29); Chloride 95 mmol/L (98-107); Glomerular Filtration Rate 137.4 mL/min (90-130); Glucose 192 mg/dL (65-115); Phosphorus 3.3 mg/dL (2.5-4.5); Sodium 132 mmol/L (136-145)
[2023-03-22] MEDS: oxyCODONE-APAP 5-325 mg Tablet 1 TAB PO ×2 (06:25→21:04)
[2023-03-22] MEDS: vancomycin 1,500 MG/300 ML PIGGYBACK 200 MG IV (06:27)
[2023-03-22 06:46] LABS: Glucose Point of Care 184 mg/dL (70-110)
[2023-03-22] MEDS: insulin lispro 100 unit/1 mL SUBCUT ×2 (08:24→21:03)
[2023-03-22 08:25] LABS: Glucose Point of Care 187 mg/dL (70-110)
[2023-03-22 12:20] LABS: Glucose Point of Care 145 mg/dL (70-110)
--- NOTE | 2023-03-22 12:58 | PM.PN ---
Subjective Subjective: Per report, patient's had some increased drainage from his chest infection. This morning, patient endorses increased pain in his posterior neck. He reports his chest is little bit better after the drainage. Denies fevers or chills. Reports appetite is okay but has been n.p.o. since midnight for surgical evaluation today. Medications: Reviewed: Yes Vitals/I&O/Wt Last Vital Signs Temp 97.6 F 03/22/23 12:00 Pulse 71 03/22/23 12:00 Resp 16 03/22/23 12:00 BP 145/82 03/22/23 12:00 Pulse Ox 96 03/22/23 12:00 O2 Del Method Room Air 03/22/23 12:00 03/21/23 03/22/23 03/22/23 22:59 06:59 14:59 Intake Total 103 / 2049 300 / 300 Balance 1029 / 2049 300 / 300 Physical Exam Narrative: General: Patient is awake and alert.? In bed. Head:? Normocephalic. Neck: No JVD.? Large area on posterior neck that is taut, raised, edematous, and erythemic, with white pus draining through skin breaks minimally changed from the past exam or 2. Cardiovascular: RRR. No gallops. No murmurs. Chest: Persistent lesions with some improvement from prior exam. Lungs: Clear to auscultation, no use of accessory muscles, no crackles or wheezes. Skin: No jaundice. No rashes. Abdomen: Normal bowel sounds, abdomen soft and nontender. Extremities: No cyanosis or clubbing. Musculoskeletal: No erythematous joints. Neurological: Moves all 4 extremities. No myoclonus. Data 03/22/23 04:58 03/22/23 04:58 A&P Assessment and plan (1) Cellulitis: Continue vancomycin, pharmacy to dose (03/17-P) Continue Rocephin (03/17-P) Daily exams Analgesics as needed NPO for general surgery evaluation Qualifiers: Site of cellulitis: neck Qualified Code(s): L03.221 - Cellulitis of neck (2) Acute hyperglycemia: Newly diagnosed type 2 diabetes mellitus, uncontrolled with hyperglycemia A1c 10.3 Continue Lantus Continue SSI Ongoing diabetes educations, nursing staff working hard on education (3) Elevated lactic acid level: Secondary to infection Continue antibiotics (4) Acute hyponatremia: Continue to monitor (5) Leukocytosis: Improving with treatment Plan DVT prophylaxis: Low risk CODE STATUS: Full code Attestations Medical Necessity Statement*: Patient requires ongoing hospitalization for IV antibiotics, general surgery evaluation, and supportive care. Coding Level of Care Code Acute Code for [facility] Diagnoses Cellulitis L03.221 Site of cellulitis: neck Acute hyperglycemia R73.9 Elevated lactic acid level R79.89 Acute hyponatremia E87.1 Leukocytosis D72.829
--- NOTE | 2023-03-22 16:40 | ANES.PREANE2 ---
Pre-Anesthetic Assessment Height/Weight: Height 1.78 m Weight 83.915 kg Temp Pulse Resp BP Pulse Ox O2 Del Method 97.9 F 77 18 167/86 93 Room Air 03/22/23 16:11 03/22/23 16:11 03/22/23 16:11 03/22/23 16:11 03/22/23 16:11 03/22/23 16:11 Operation Date: 03/22/23 17:10 Proposed Procedures p Incision And Drainage of neck and chest(Not Applicable) - Andrew Burns MD Familial anesthetic complications: none Was Beta Cheri taken within 24 hours: N/A Was Clonidine taken within 24 hours: N/A Last intake: Intake Last Liquid Date 03/21/23 Last Liquid Time 18:00 Last Solid Date 03/21/23 Last Solid Time 18:00 Social No alcohol and No tobacco Exam alert, oriented x 3, clear to auscultation bilaterally and regular rate & rhythm Airway Submandibular: within normal limits Cervical ROM: within normal limits Mallampati: Class II Dentition: chipped Comments: Comments: Very poor dentition Metabolic Diabetes Mellitus and Morbid Obesity Anesthetic Plan ASA status: 3 Anesthesia: General Medications/Allergies Home Medications Medication Instructions Recorded Confirmed Last Taken Type acetaminophen 500 mg tablet 1,000 mg PO Q6H PRN Pain 03/17/23 03/17/23 Unknown History Allergies Allergy/AdvReac Type Severity Reaction Status Date / Time No Known Allergies Allergy Verified 03/17/23 16:16 Current Medications Generic Name Dose Route Start Last Admin Trade Name Freq PRN Reason Stop Dose Admin Ceftriaxone Sodium 2,000 mg/ 50 mls @ 100 mls/hr 03/18/23 18:00 03/21/23 18:09 Sodium Chloride IV Infused Q24H JAQUELINE Infusion Protocol Vancomycin/PEG/NADA/Lysine/Water 1,500 mg in 300 mls @ 250 mls/hr 03/19/23 19:00 03/22/23 08:11 Vancocin IV Infused Q12H JAQUELINE Infusion Insulin Glargine 10 unit 03/18/23 21:00 03/21/23 22:16 Insulin Glargine 100 Units/1 Ml SUBCUT 10 unit BEDTIME JAQUELINE Administration Insulin Human Lispro 0 unit 03/18/23 18:00 03/22/23 12:07 Insulin Lispro 100 Unit/1 Ml SUBCUT Not Given WM&BEDTIME JAQUELINE Protocol Oxycodone/Acetaminophen 1 tab 03/17/23 18:31 03/22/23 06:25 Oxycodone-Apap 5-325 Mg Tablet PO 1 tab Q4H PRN Administration SEVERE PAIN PFSH Anesthesia Medical History (Updated 03/17/23 @ 16:10 by Porfirio Call MD) Umbilical hernia Surgical History (Updated 03/17/23 @ 16:08 by Porfirio Call MD) History of hernia repair Social History (Updated 03/17/23 @ 16:08 by Porfirio Call MD) Smoking and tobacco status: former smoker Alcohol intake: never Substance/Drug Use: never Data Anesthesia 03/22/23 04:58 03/22/23 04:58 Short CBC 03/21/23 03/22/23 Range/Units 04:45 04:58 WBC 11.7 H 12.3 H (4.0-10.0) 10^3/uL Hgb 12.4 12.9 (11.7-16.6) g/dL Hct 37.6 L 39.0 L (42.0-52.0) % MCV 86.0 83.5 (80-94) fl Plt Count 372 448 H (130-400) 10^3/cmm Neut % (Auto) 79.2 78.0 % Neut # (Auto) 9.25 H 9.56 H (1.8-7.7) 10^3/uL BMP 03/21/23 03/22/23 04:45 04:58 Sodium 130 L 132 L Potassium 4.0 4.0 Chloride 95 L 95 L Carbon Dioxide 26 28 BUN 10 10 Creatinine 0.6 L 0.6 L Glucose 168 H 192 H Calcium 8.5 9.1 Liver Function 03/21/23 03/22/23 Range/Units 04:45 04:58 Albumin 2.9 L 3.3 L (3.5-5.2) g/dL Microbiology 03/17/23 14:11 Blood Culture - Final Blood NO GROWTH AFTER 5 DAYS 03/17/23 13:51 Blood Culture - Final Blood NO GROWTH AFTER 5 DAYS Cardiac Studies: No Data to Display
--- NOTE | 2023-03-22 17:09 | PM.CONSULT ---
Providers/Reason For Consult Consulting Physician/Specialty*: General Surgery Reason for Consult*: Abscess of the neck and chest Attending Physician: Porfirio Call MD Primary Care Provider: Champ Gregory MD History of Present Illness History of Present Illness Richie Guidry is a 58 year old male who was admitted to the hospital with cellulitis of the posterior neck and upper chest. He has been receiving antibiotic therapy, but there is still significant induration fluctuance in the areas of interest and therefore a general surgery consult was called. Patient was planned for I&D of the neck and upper chest abscess by my colleague Dr. Vidal. I have been asked to evaluate the patient as he was unavailable this afternoon. Per patient report he has had these abscesses for about 2 to 3 weeks, he believes that there was an insect bite and since then it has been increasing in size. Medications/Allergies Home Medications Medication Instructions Recorded Confirmed Last Taken Type acetaminophen 500 mg tablet 1,000 mg PO Q6H PRN Pain 03/17/23 03/17/23 Unknown History Allergies Allergy/AdvReac Type Severity Reaction Status Date / Time No Known Allergies Allergy Verified 03/17/23 16:16 Current Medications Generic Name Dose Route Start Last Admin Trade Name Freq PRN Reason Stop Dose Admin Ceftriaxone Sodium 2,000 mg/ 50 mls @ 100 mls/hr 03/18/23 18:00 03/21/23 18:09 Sodium Chloride IV Infused Q24H JAQUELINE Infusion Protocol Vancomycin/PEG/NADA/Lysine/Water 1,500 mg in 300 mls @ 250 mls/hr 03/19/23 19:00 03/22/23 08:11 Vancocin IV Infused Q12H JAQUELINE Infusion Insulin Glargine 10 unit 03/18/23 21:00 03/21/23 22:16 Insulin Glargine 100 Units/1 Ml SUBCUT 10 unit BEDTIME JAQUELINE Administration Insulin Human Lispro 0 unit 03/18/23 18:00 03/22/23 12:07 Insulin Lispro 100 Unit/1 Ml SUBCUT Not Given WM&BEDTIME JAQUELINE Protocol Oxycodone/Acetaminophen 1 tab 03/17/23 18:31 03/22/23 06:25 Oxycodone-Apap 5-325 Mg Tablet PO 1 tab Q4H PRN Administration SEVERE PAIN PFSH Acute PFSH: Medical History (Updated 03/22/23 @ 17:13 by Andrew Burns MD) Umbilical hernia Surgical History (Updated 03/17/23 @ 16:08 by Porfirio Call MD) History of hernia repair Social History (Updated 03/17/23 @ 16:08 by Porfirio Call MD) Smoking and tobacco status: former smoker Alcohol intake: never Substance/Drug Use: never Vitals/I&O/Wt Last Vital Signs Temp 97.9 F 03/22/23 16:11 Pulse 77 03/22/23 16:11 Resp 18 03/22/23 16:11 BP 167/86 03/22/23 16:11 Pulse Ox 93 03/22/23 16:11 O2 Del Method Room Air 03/22/23 16:11 03/22/23 03/22/23 03/22/23 06:59 14:59 22:59 Intake Total 300 / 300 Balance 300 / 300 Physical Exam Narrative: General : Patient is well developed , no acute distress, oriented x3 Head : On the posterior neck almost the level of the occiput there is a large area of induration of about 10 x 10 cm with some fluctuance underneath. Nose : Mucous membranes are without erythema. Lungs : Equal chest rise bilaterally, no use of accessory muscles, trachea is midline. CV : On the left anterior chest there is 2 areas of fluctuance measuring 2 x 2 cm and 1 x 1 cm. Abdomen : Soft, ND, NT, no g/r/m Extremities : No edema. Upper extremities are normal bilaterally. Back : non-tender to palpation, no CVA tenderness. Data 03/22/23 04:58 03/22/23 04:58 Micro: Microbiology 03/17/23 14:11 Blood Culture - Final Blood NO GROWTH AFTER 5 DAYS 03/17/23 13:51 Blood Culture - Final Blood NO GROWTH AFTER 5 DAYS A&P Assessment and plan (1) Neck abscess: After a complete history, physical examination and review of all available clinical data I considered that it will be important to proceed with I&D of the neck and upper chest abscesses. I have explained to the patient all the risk and benefits involved with the I&D including the risk of bleeding, infection needing additional debridement, requiring abscess, injury to underlying structures, poor wound healing, scar tissue formation. Patient shows understanding of the risks and wishes to proceed. Work on bring the patient to the OR this afternoon and do an I&D. Coding Level of Care Code 09672 Diagnoses Neck abscess L02.11
[2023-03-22] MEDS: sodium chloride 0.9% 1,000 ML 30 ML IV (17:32)
--- NOTE | 2023-03-22 18:37 | PM.OP ---
Operative Report Date of procedure: March 22, 2023 Pre-op diagnosis: Abscess of the posterior neck and anterior left chest Post-op diagnosis: Complex carbuncle of the posterior neck. abcess x 2 of the left anterior chest wall. Procedure done: Incision and drainage of two anterior chest wall abscesses and large posterior neck carbuncle. Pathology: Wound cultures for anterior chest Wound cultures from posterior neck. Surgeon: Andrew Burns MD Estimated blood loss: 5cc Complications: none Findings: There was a large complex carbuncle of the posterior neck measuring about 10 x 10 cm with a depth of about 2cm. On the left anterior chest wall there were 2 abscess 1 measuring 2 x 2 x 2 and the second one measuring 1 x 1 x 1 cm. Brief History: This is a 58-year-old male who is admitted to the hospital for hyperglycemia and antibiotic management of a large posterior neck abscess as well as left anterior chest wall abscesses. I was asked to evaluate the patient for possible I&D. After extensive discussion regarding the risk and benefits of the procedure as documented in my consult note I decided to offer the patient incision and drainage of both the posterior neck abscess and anterior chest wall abscesses. Procedure: The patient was taken to the OR, patient was given anesthesia with LMA. Patient was placed in the right lateral decubitus position. There is skin of the posterior neck was prepped and draped in the usual sterile fashion. A timeout was conducted. The affected area on the posterior neck measured about 10 x 10 cm, multiple areas of drainage were noted on the skin, consistent with carbuncle and I made a 5 cm incision on the center of the carbuncle with a transverse configuration, the incision was deepened until a small pocket of abscess was accessed. Wound cultures were taken. Extensive loculations were noted and these were breakdown with a blunt dissection with gloved finger. Extensive amount of pus was noted coming from the tissue, consistent with the diagnosis of carbuncle. This tissue was expressed to evacuate all the pus. Once no more pus was seen coming from the tissue, the wound was irrigated with abundant amount of saline. Hemostasis was achieved. Minimal debridement was done of the wound base to remove devitalized tissue. The wound was then packed with help inch iodoform packing and a sterile dressing applied. Patient was then placed in the supine position, the chest was prepped and draped in the usual sterile fashion. 2 abscesses were noted on the left anterior chest wall, the first measuring about 2 cm, I made a 2 cm incision over the abscess, the abscess cavity was accessed cultures were taken. Loculations were debrided with blunt dissection, the cavity was irrigated and packed. I then made a 1 cm incision over the additional abscess, the abscess cavity was evacuated, the wound was irrigated and packed. Sterile dressing was applied. At the end of the procedure all counts were correct. The patient tolerated well the procedure and was transferred to the PACU in stable condition.
[2023-03-22 20:21] LABS: Glucose Point of Care 216 mg/dL (70-110)
[2023-03-22] MEDS: insulin glargine 100 units/1 mL 10 UNIT SUBCUT (21:03)
[2023-03-23] VITALS (7 sets, daily range): BP systolic 126–151; BP diastolic 77–89; PULSE 72–78; RESP 16–20; TEMP 36.2–37.1; O2SAT 91–96
[2023-03-23 05:22] LABS: Basophils % 0.3 %; Eosinophils % 0.2 %; Hematocrit 42.6 % (42.0-52.0); Lymphocytes # 0.8 10^3/uL (0.8-4.8); Lymphocytes % 5.7 %; Mean Corpuscular HGB Conc 32.9 g/dL (30.0-36.0); Mean Corpuscular Hemoglobin 27.8 pg (28.0-34.0); Mean Corpuscular Volume 84.7 fl (80-94); Mean Platelet Volume 9.5 fL (7.4-10.4); Monocytes # 0.4 10^3/uL (0.2-0.9); Monocytes % 3.1 %; Neutrophils # 12.54 10^3/uL (1.8-7.7); Nucleated Red Blood Cells % 0 %; Platelet Count 478 10^3/cmm (130-400); Red Blood Count 5.03 10^6/uL (4.1-5.3); Red Cell Distribution Width 12.5 % (12.1-15.1); White Blood Count 14.1 10^3/uL (4.0-10.0)
[2023-03-23 05:41] LABS: Albumin Level 3.4 g/dL (3.5-5.2); Anion Gap 14.5 (5-19); Blood Urea Nitrogen 14 mg/dL (8-23); Carbon Dioxide 26 mmol/L (22-29); Chloride 94 mmol/L (98-107); Glomerular Filtration Rate 137.4 mL/min (90-130); Glucose 246 mg/dL (65-115); Magnesium 2.3 mg/dL (1.7-2.3); Phosphorus 3.5 mg/dL (2.5-4.5); Potassium 4.5 mmol/L (3.5-5.1); Sodium 130 mmol/L (136-145)
[2023-03-23] MEDS: vancomycin 1,500 MG/300 ML PIGGYBACK 200 MG IV ×2 (06:10→18:52)
[2023-03-23 06:39] LABS: Glucose Point of Care 236 mg/dL (70-110)
--- NOTE | 2023-03-23 07:28 | ANE.PACU2 ---
Inpatient post-anesthesia follow up: Airway intact: Yes Vital signs: Temperature 98.7 F Pulse Rate 73 Respiratory Rate 17 Blood Pressure 143/79 Pulse Oximetry 92 Oxygen Delivery Me thod Room Air Oxygen Flow Rate 6 Fraction of Inspir ed Oxygen Hydration adequate: Yes Nausea and vomiting: No Pain level: 2 Mental status: Baseline
[2023-03-23] MEDS: insulin lispro 100 unit/1 mL SUBCUT ×3 (08:11→21:02)
--- NOTE | 2023-03-23 10:04 | P.PN_ITS ---
Subjective Subjective: Patient underwent I&D of abscess/phelgmon yesterday by general surgery. He reports significant improvement in pain and swelling after the procedure. Denies fevers, chills, chest pain, or abdominal pains. Reports appetite is adequate. Medications: Reviewed: Yes Vitals/I&O/Wt Last Vital Signs Temp 97.7 F 03/23/23 08:12 Pulse 78 03/23/23 08:12 Resp 18 03/23/23 08:12 BP 126/80 03/23/23 08:12 Pulse Ox 94 03/23/23 08:12 O2 Del Method Room Air 03/23/23 08:12 O2 Flow Rate 6 03/22/23 18:34 03/22/23 03/23/23 03/23/23 22:59 06:59 14:59 Intake Total 580 / 880 780 / 780 Output Total 800 / 805 300 / 300 Balance 575 / 875 -800 / 75 480 / 480 Physical Exam Narrative: General: Patient is awake and alert. Head:? Normocephalic. Poor dentition. Neck: Posterior neck is covered with large bandage with minimal leak through. Cardiovascular: RRR. No gallops. No murmurs. Chest: Chest now covered with large bandage with minimal leak through. Lungs: Clear to auscultation, no use of accessory muscles, no crackles or wheezes. Skin: No jaundice. No rashes. Abdomen: Normal bowel sounds, abdomen soft and nontender. Extremities: No cyanosis or clubbing. Musculoskeletal: No erythematous joints. Neurological: Moves all 4 extremities. No myoclonus. Data 03/23/23 04:25 03/23/23 04:25 Micro: Microbiology 03/17/23 14:11 Blood Culture - Final Blood NO GROWTH AFTER 5 DAYS 03/17/23 13:51 Blood Culture - Final Blood NO GROWTH AFTER 5 DAYS A&P Assessment and plan (1) Cellulitis: Severe cellulitis c/b abscess formation on posterior neck and several on left chest Continue vancomycin, pharmacy to dose () Continue Rocephin () Status post I&D by on 03/22 Follow up intra-op cultures Continue wound care, consider referral to wound clinic at [facility] Qualifiers: Site of cellulitis: neck Qualified Code(s): L03.221 - Cellulitis of neck (2) Acute hyperglycemia: Newly diagnosed type 2 diabetes mellitus, uncontrolled with hyperglycemia A1c 10.3 Continue Lantus Continue SSI Ongoing diabetes educations, nursing continues to educate (3) Acute hyponatremia: Continue to monitor (4) Leukocytosis: Secondary to infection, slight bump likely stress from procedure Continue to monitor Plan DVT prophylaxis: Low risk, Ambulatory CODE STATUS: Full code Attestations Medical Necessity Statement*: Patient requires ongoing hospitalization for IV antibiotics while awaiting intra-op culture results and aggressive wound care. Coding Level of Care Code Acute Code for [facility] Diagnoses Cellulitis L03.221 Site of cellulitis: neck Acute hyperglycemia R73.9 Acute hyponatremia E87.1 Leukocytosis D72.829
[2023-03-23 11:19] LABS: Glucose Point of Care 275 mg/dL (70-110)
--- NOTE | 2023-03-23 12:34 | PM.PN ---
Subjective Subjective: I evaluated patient at the bedside, he is feeling much better, per his report there is no more throbbing on the posterior neck wound, he feels his mobility has improved, pain has also improved significantly. Vitals/I&O/Wt Last Vital Signs Temp 98.6 F 03/23/23 11:42 Pulse 75 03/23/23 11:42 Resp 18 03/23/23 11:42 BP 133/79 03/23/23 11:42 Pulse Ox 96 03/23/23 11:42 O2 Del Method Room Air 03/23/23 11:42 O2 Flow Rate 6 03/22/23 18:34 03/22/23 03/23/23 03/23/23 22:59 06:59 14:59 Intake Total 580 / 880 1330.5 / 1330.5 Output Total 800 / 805 300 / 300 Balance 575 / 875 -800 / 75 1030.5 / 1030.5 Physical Exam Neck/C-Spine: OTHER: On the posterior neck there is a 2 x 5 cm surgical incision, the underlying cavity was packed, packing was removed the base of the wound has a small to moderate amount of devitalized tissue, the induration around the wound has improved, but I can still express minimal amounts of purulent material from the soft tissue surrounding the cavity. Wound was repacked using wet-to-dry. Chest: OTHER: There are 2 wounds on the left anterior chest both were packed, packing was removed, no evidence of purulence wounds will repacked Data 03/23/23 04:25 03/23/23 04:25 Micro: Microbiology 03/17/23 14:11 Blood Culture - Final Blood NO GROWTH AFTER 5 DAYS 03/17/23 13:51 Blood Culture - Final Blood NO GROWTH AFTER 5 DAYS A&P Assessment and plan (1) Carbuncle, neck: Plan Patient is improving. Will require further wound care as an inpatient, before planning on discharge. Wound care was done today at the bedside, there is still minimal purulence on the posterior neck wound, I cannot completely rule out the need for return to the OR for washout, I will reevaluate the wound tomorrow. Attestations Medical Necessity Statement*: Patient with newly diagnosed diabetes mellitus, with several soft tissue abscesses, soft tissue infection and complex carbuncle of the posterior neck requiring further IV antibiotics and daily wound care. Coding Level of Care Code Acute Code for [facility] Diagnoses Carbuncle, neck L02.13
[2023-03-23 16:27] LABS: Glucose Point of Care 139 mg/dL (70-110)
[2023-03-23] MEDS: cefTRIAXone 2,000 MG in sodium chloride 0.9% (plus) 50 ML 100 MG IV (17:37)
[2023-03-23 18:46] LABS: Vancomycin Trough 12.3 ug/mL (10-15)
[2023-03-23 20:49] LABS: Glucose Point of Care 230 mg/dL (70-110)
[2023-03-23] MEDS: insulin glargine 100 units/1 mL 10 UNIT SUBCUT (21:02)
[2023-03-24] VITALS (10 sets, daily range): BP systolic 121–173; BP diastolic 74–93; PULSE 71–82; RESP 16–19; TEMP 36.4–37.2; O2SAT 95–97
[2023-03-24] MEDS: oxyCODONE-APAP 5-325 mg Tablet 1 TAB PO ×2 (01:21→20:51)
[2023-03-24 05:34] LABS: Basophils # 0.1 10^3/uL (0.0-0.1); Basophils % 0.6 %; Eosinophils # 0.4 10^3/uL (0.0-0.8); Eosinophils % 3.8 %; Hematocrit 41.7 % (37-53); Lymphocytes # 2.1 10^3/uL (0.8-4.8); Lymphocytes % 18.5 %; Mean Corpuscular HGB Conc 32.1 g/dL (30-55); Mean Corpuscular Hemoglobin 27.5 pg (27-33); Mean Corpuscular Volume 85.5 fl (82-101); Mean Platelet Volume 9.3 fL (7.4-10.4); Monocytes # 0.7 10^3/uL (0.2-0.9); Neutrophils % 67.8 %; Nucleated Red Blood Cells % 0 %; Platelet Count 473 10^3/cmm (157-399); Red Blood Count 4.88 10^6/uL (3.85-5.65); Red Cell Distribution Width 12.6 % (12.1-15.1); White Blood Count 11.21 10^3/uL (3.29-11.43)
[2023-03-24 06:08] LABS: Blood Urea Nitrogen 15 mg/dL (8-23); Carbon Dioxide 29 mmol/L (22-29); Chloride 98 mmol/L (98-107); Phosphorus 3.7 mg/dL (2.5-4.5)
[2023-03-24 06:20] LABS: Albumin Level 3.4 g/dL (3.5-5.2); Glomerular Filtration Rate 137.4 mL/min (90-130); Glucose 123 mg/dL (65-115); Sodium 135 mmol/L (136-145)
[2023-03-24] MEDS: vancomycin 1,500 MG/300 ML PIGGYBACK 200 MG IV (06:25)
[2023-03-24 07:25] LABS: Glucose Point of Care 132 mg/dL (70-110)
[2023-03-24 11:25] LABS: Glucose Point of Care 191 mg/dL (70-110)
[2023-03-24] MEDS: insulin lispro 100 unit/1 mL SUBCUT ×3 (12:09→20:52)
[2023-03-24 13:52] LABS: Thyroid Stimulating Hormone 1.24 uIU/mL (0.27-4.20)
[2023-03-24 13:53] LABS: HIV 1 & 2 Antibody Non-Reactive (Non-Reactiv); HIV 1 & 2 Antigen Non-Reactive (Non-Reactiv)
[2023-03-24 14:02] LABS: Iron 52 ug/dL (59-158); Percent Saturation 27.3 % (20-50); Total Iron Binding Capacity 190 mcg/dl; Unsaturated Iron Binding 138 ug/dL (112-347); Vitamin B12 470 pg/mL (232-1245)
[2023-03-24] MEDS: losartan 50 mg Tablet PO (15:14)
--- NOTE | 2023-03-24 16:26 | PM.PN ---
Subjective Subjective: Hospital course, labs appreciated. Patient lying comfortably in bed. Denies any nausea, vomiting, headache. States pain in the neck where I&D was done and is improving. Has remained afebrile. Blood pressure is elevated. Blood work is appreciated for resolution of leukocytosis, BMP showing sodium to 135, stable creatinine. Vitals/I&O/Wt Last Vital Signs Temp 98.9 F 03/24/23 12:00 Pulse 74 03/24/23 12:00 Resp 16 03/24/23 12:00 BP 154/84 03/24/23 15:15 Pulse Ox 96 03/24/23 12:00 O2 Del Method Room Air 03/24/23 12:00 O2 Flow Rate 6 03/22/23 18:34 03/24/23 03/24/23 03/24/23 06:59 14:59 22:59 Intake Total 1260 / 1260 Output Total 450 / 1050 Balance -450 / 1830.5 1260 / 1260 Physical Exam Narrative: General: Patient is awake and alert. Head:? Normocephalic. Poor dentition. Neck: Posterior neck is covered with large bandage with minimal leak through. Cardiovascular: RRR. No gallops. No murmurs. Chest: Chest now covered with large bandage with minimal leak through. Lungs: Clear to auscultation, no use of accessory muscles, no crackles or wheezes. Skin: No jaundice. No rashes. Abdomen: Normal bowel sounds, abdomen soft and nontender. Extremities: No cyanosis or clubbing. Musculoskeletal: No erythematous joints. Neurological: Moves all 4 extremities. No myoclonus. Data 03/24/23 04:27 03/24/23 04:27 Micro: Microbiology 03/22/23 17:50 Gram Stain - Final Neck Anaerobic Culture - Preliminary Wound Culture - Preliminary Coag positive Staphylococcus 03/22/23 17:50 Gram Stain - Final Chest Anaerobic Culture - Preliminary Wound Culture - Preliminary Coag positive Staphylococcus A&P Assessment and plan (1) Cellulitis: Severe cellulitis along with abscess formation on posterior neck and several on left chest post I&D. Follow-up blood cultures, intraoperative cultures. Continue with vancomycin and ceftriaxone for now. OR cultures are now growing coagulase-negative staph. Check MRSA swab. Qualifiers: Site of cellulitis: neck Qualified Code(s): L03.221 - Cellulitis of neck (2) Acute hyperglycemia: Newly diagnosed type 2 diabetes mellitus with uncontrolled hyperglycemia. A1c 10.3 Increase dose of Lantus to 15 units nightly. Insulin sliding scale low-dose protocol. Needed 20 units of Humalog along with 10 units of Lantus in last 24 hours. Plan to discharge patient on Lantus and OHA's. Diabetes education. Check lipid panel. (3) Acute hyponatremia: Improving. Most likely in setting of hyperglycemia. Continue to monitor (4) Leukocytosis: Plan Hypertension: Goal blood pressure less than 140/90 mmHg in a patient with uncontrolled type 2 diabetes mellitus. New diagnosis. Start patient on losartan 50 mg oral daily. DVT prophylaxis: Low risk, Ambulatory CODE STATUS: Full code Diabetic diet. Famotidine for PUD prophylaxis. Attestations Medical Necessity Statement*: Requires further hospitalization for management of localized cellulitis with abscess formation post I&D in a patient with newly diagnosed uncontrolled type 2 diabetes mellitus while intraoperative cultures are followed Diagnoses Cellulitis L03.221 Site of cellulitis: neck Acute hyperglycemia R73.9 Acute hyponatremia E87.1 Leukocytosis D72.829
[2023-03-24 17:26] LABS: Glucose Point of Care 206 mg/dL (70-110)
[2023-03-24] MEDS: cefTRIAXone 1,000 MG in sodium chloride 0.9% (plus) 50 ML 100 MG IV (18:06)
[2023-03-24] MEDS: vancomycin 1,500 MG/300 ML PIGGYBACK 250 MG IV (19:16)
[2023-03-24] MEDS: insulin glargine 100 units/1 mL 15 UNIT SUBCUT (20:51)
[2023-03-24 20:59] LABS: Glucose Point of Care 209 mg/dL (70-110)
[2023-03-25] VITALS: BP 131/83; PULSE 73; RESP 16; TEMP 36.8; O2SAT 97
[2023-03-25 04:00] VITALS: BP 149/87; PULSE 76; RESP 15; TEMP 36.6; O2SAT 96
[2023-03-25 05:09] LABS: Add Urine Microscopic? NO; Charge for UA Resulting for Rev
[2023-03-25 05:20] LABS: Bilirubin Urine Neg (Negative); Blood Urine Neg (Negative); Glucose Urine UA Norm (Normal); Ketones Urine Negative (Negative); Leukocyte Esterase Urine Negative (Negative); Nitrate Urine Negative (Negative); Protein Urine Neg (Negative); Urine Appearance Clear (CLEAR); Urine Color Light yellow (Yellow); Urobilinogen Urine Neg (Negative); pH Urine 5 (5-7)
[2023-03-25 05:46] LABS: Basophils # 0.1 10^3/uL (0.0-0.1); Basophils % 0.7 %; Eosinophils # 0.4 10^3/uL (0.0-0.8); Eosinophils % 3.9 %; Hematocrit 42.3 % (37-53); Lymphocytes # 1.6 10^3/uL (0.8-4.8); Lymphocytes % 17.1 %; Mean Corpuscular HGB Conc 32.4 g/dL (30-55); Mean Corpuscular Hemoglobin 27.7 pg (27-33); Mean Corpuscular Volume 85.5 fl (82-101); Mean Platelet Volume 9.2 fL (7.4-10.4); Monocytes # 0.6 10^3/uL (0.2-0.9); Monocytes % 6.7 %; Neutrophils # 6.16 10^3/uL (1.8-7.7); Neutrophils % 67.7 %; Nucleated Red Blood Cells % 0 %; Platelet Count 410 10^3/cmm (157-399); Red Blood Count 4.95 10^6/uL (3.85-5.65); Red Cell Distribution Width 12.6 % (12.1-15.1); White Blood Count 9.08 10^3/uL (3.29-11.43)
[2023-03-25 06:06] LABS: Chol HDL Ratio 6.11 mg/dL (1.0-5.00); Cholesterol 171 mg/dL (0-200); HDL Cholesterol 28 mg/dL (60-100); LDL Cholesterol Calculated 113 mg/dL (50-129); Triglycerides 148 mg/dL (0-150); VLDL Cholestrol Calculation 30 mg/dL (0-30)
[2023-03-25 06:07] LABS: Alanine Aminotransferase 34 U/L (0-41); Albumin Level 3.5 g/dL (3.5-5.2); Alkaline Phosphatase 84 U/L (40-130); Anion Gap 13.5 (5-19); Aspartate Amino Transferase 22 U/L (0-40); Blood Urea Nitrogen 13 mg/dL (8-23); Carbon Dioxide 28 mmol/L (22-29); Chloride 97 mmol/L (98-107); Globulin 3.5 g/dL (1.3-4.6); Glomerular Filtration Rate 137.4 mL/min (90-130); Glucose 155 mg/dL (65-115); Osmolality Calculated 281 mOsm/kg (285-295); Potassium 4.5 mmol/L (3.5-5.1); Sodium 134 mmol/L (136-145); Total Bilirubin 0.2 mg/dL (0.15-1.2)
[2023-03-25 06:30] LABS: Folate Level 7.7 ng/mL (4.5-32.2)
[2023-03-25] MEDS: vancomycin 1,500 MG/300 ML PIGGYBACK 250 MG IV (06:34)
[2023-03-25 06:38] LABS: Glucose Point of Care 171 mg/dL (70-110)
[2023-03-25 07:54] VITALS: BP 169/89; PULSE 72; RESP 17; TEMP 35.8; O2SAT 96
[2023-03-25 08:58] VITALS: BP 169/89
[2023-03-25] MEDS: losartan 50 mg Tablet PO (08:58)
[2023-03-25] MEDS: insulin lispro 100 unit/1 mL SUBCUT ×2 (08:58→12:19)
--- NOTE | 2023-03-25 11:53 | PM.DCS ---
Discharge Providers Date of Admission: 03/18/23 15:17 Date of Discharge: March 25, 2023 Attending Provider at Admission: Porfirio Call MD Attending Provider at Discharge: Ander Miller MD Consults: Surgery: Dr. Mirza Ruiz Primary Care Provider: Champ Gregory MD Diagnoses at Discharge Discharge Diagnosis (1) Cellulitis: Status: Acute Qualifiers: Site of cellulitis: neck Qualified Code(s): L03.221 - Cellulitis of neck (2) Acute hyperglycemia: Status: Acute (3) Acute hyponatremia: Status: Acute (4) Leukocytosis: Status: Acute Reason for Visit Reason for Visit: possible spider bite Brief History: History as per HPI: Richie Guidry is a 58 year old male who presents to the emergency department with worsening pain, swelling and wounds on his neck and chest.? Patient reports he was under his house with some insulation fell on him about a week ago.? Just after that he noticed bites on the back of his neck and several on his left upper chest.? These areas have continued to swell, become red, painful, and erythemic for the past week.? He states he has been cleaning them with antibacterial soap and applying triple antibiotic ointment to them.? Despite these interventions, symptoms continue to worsen.? He denies any systemic antibiotics. Of note, he states about a week prior to that he also burned his right hand on a radiator cap.? He states he has been cleaning this with antibacterial soap and has been getting better. He denies any known significant past medical history.? He does note that he had 1 prior surgery which was an umbilical hernia repair.? He is a previous smoker but quit 10 years ago.? Denies any history of alcohol or drug abuse.? Family history also reviewed and found noncontributory to this illness. Hospital Course Hospital Course Patient was admitted to the hospital further evaluation and management. Surgery was consulted and he underwent incision and drainage. Patient continued to have persistent leukocytosis for which she required prolonged IV antibiotic course. His blood cultures remain negative to OR cultures were consistent with MRSA. During hospitalization he was also found to have new diabetes with A1c of more than 10 and hypertension. He has been discharged imminently stable condition on oral linezolid for 10 days twice daily. He is to take Lantus 15 units nightly along with Januvia 100 mg daily for diabetes. He has been started on amlodipine 5 mg and losartan 100 mg daily for high blood pressure. He is to check his blood pressure and blood sugar daily and maintain a diary and follow-up with the primary care provider within next 10 days for further adjustments of medication as needed. Patient was counseled detail regarding lifestyle changes which need to be done with diabetes and hypertension. Physical Exam Narrative: General: Patient is awake and alert. Head:? Normocephalic. Poor dentition. Neck: Posterior neck is covered with large bandage with minimal leak through. Cardiovascular: RRR. No gallops. No murmurs. Chest: Chest now covered with large bandage with minimal leak through. Lungs: Clear to auscultation, no use of accessory muscles, no crackles or wheezes. Skin: No jaundice. No rashes. Abdomen: Normal bowel sounds, abdomen soft and nontender. Extremities: No cyanosis or clubbing. Musculoskeletal: No erythematous joints. Neurological: Moves all 4 extremities. No myoclonus. Discharge Data Studies Completed and Pending Completed Studies During Hospitalization Category Date Time Status CT neck w con* [id number] Stat Cat Scan 03/17/23 14:08 Completed XR soft tissue neck [id number] Stat Exams 03/17/23 13:35 Completed US soft tissue head neck [id number] Urgent Ultrasound 03/21/23 11:06 Completed Pending at discharge Category Date Time Status Anaerobic Culture Routine Lab 03/22/23 17:50 Results Anaerobic Culture Routine Lab 03/22/23 17:50 Results MRSA by PCR Routine Lab 03/24/23 19:18 Received Wound Culture and Gram Stain Routine Lab 03/22/23 17:50 Results Wound Culture and Gram Stain Routine Lab 03/22/23 17:50 Results Radiology Impressions Soft Tissue Neck X-Ray 03/17/23 13:35 IMPRESSION: Partially visualized posterior neck soft tissue fullness. Cannot distinguish cellulitis or abscess on this exam. Consider contrast-enhanced neck CT. Neck CT 03/17/23 14:08 IMPRESSION: 1. Posterior neck soft tissue findings may be seen in the setting of cellulitis. No rim enhancing abscess. There may be some infiltration of the subjacent musculature, although this is difficult to assess on CT. Correlate with clinical findings and consideration for MRI if indicated. 2. Additional left anterior chest nodular abnormalities as above. Recommend direct visualization. 3. Multilevel cervical spine degenerative changes greatest at C5-C6 with severe right neural foraminal narrowing. 4. Multiple carious teeth. Head/Neck Ultrasound 03/21/23 11:06 IMPRESSION: Images demonstrate 3 distinct areas of phlegmon/developing abscess, with surrounding cellulitis, located in the anterior left chest and in the posterior neck. Microbiology 03/24/23 19:18 Nose MRSA Culture - Final 03/22/23 17:50 Chest Gram Stain - Final 03/22/23 17:50 Chest Anaerobic Culture - Preliminary 03/22/23 17:50 Chest Wound Culture - Final Methicillin Resis Staph Aureus 03/22/23 17:50 Neck Gram Stain - Final 03/22/23 17:50 Neck Anaerobic Culture - Preliminary 03/22/23 17:50 Neck Wound Culture - Final Methicillin Resis Staph Aureus 03/17/23 14:11 Blood Blood Culture - Final NO GROWTH AFTER 5 DAYS 03/17/23 13:51 Blood Blood Culture - Final NO GROWTH AFTER 5 DAYS Laboratory Results WBC 9.08 10^3/uL (3.29-11.43) 03/25/23 05:26 RBC 4.95 10^6/uL (3.85-5.65) 03/25/23 05:26 Hgb 13.70 g/dL (11.27-16.99) 03/25/23 05:26 Hct 42.3 % (37-53) 03/25/23 05:26 MCV 85.5 fl (82-101) 03/25/23 05:26 MCH 27.7 pg (27-33) 03/25/23 05:26 MCHC 32.4 g/dL (30-55) 03/25/23 05:26 RDW 12.6 % (12.1-15.1) 03/25/23 05:26 Plt Count 410 10^3/cmm (157-399) H 03/25/23 05:26 MPV 9.2 fL (7.4-10.4) 03/25/23 05:26 Neut % (Auto) 67.7 % 03/25/23 05:26 Lymph % (Auto) 17.1 % 03/25/23 05:26 [place] % (Auto) 6.7 % 03/25/23 05:26 Eos % (Auto) 3.9 % 03/25/23 05:26 Baso % (Auto) 0.7 % 03/25/23 05:26 Neut # (Auto) 6.16 10^3/uL (1.8-7.7) 03/25/23 05:26 Lymph # (Auto) 1.6 10^3/uL (0.8-4.8) 03/25/23 05:26 [place] # (Auto) 0.6 10^3/uL (0.2-0.9) 03/25/23 05:26 Eos # (Auto) 0.4 10^3/uL (0.0-0.8) 03/25/23 05:26 Baso # (Auto) 0.1 10^3/uL (0.0-0.1) 03/25/23 05:26 Nucleated RBC % (auto) 0 % 03/25/23 05:26 Nucleated RBCs # 0.0 /100WBC 03/25/23 05:26 PT 15.10 SECONDS (12.1-14.9) H 03/17/23 13:51 INR 1.15 (0.8-1.2) 03/17/23 13:51 Sodium 134 mmol/L (136-145) L 03/25/23 05:26 Potassium 4.5 mmol/L (3.5-5.1) 03/25/23 05:26 Chloride 97 mmol/L (98-107) L 03/25/23 05:26 Carbon Dioxide 28 mmol/L (22-29) 03/25/23 05:26 Anion Gap 13.5 (5-19) 03/25/23 05:26 BUN 13 mg/dL (8-23) 03/25/23 05:26 Creatinine 0.6 mg/dL (0.7-1.2) L 03/25/23 05:26 GFR Calculation 137.4 mL/min (90-130) H 03/25/23 05:26 Glucose 155 mg/dL (65-115) H 03/25/23 05:26 POC Glucose 171 mg/dL (70-110) H 03/25/23 06:23 Estimat Average Glucose 249 03/17/23 13:51 Hemoglobin A1c 10.3 % (4.0-6.0) H 03/17/23 13:51 Calculated Osmolality 281 mOsm/kg (285-295) L 03/25/23 05:26 Lactic Acid 2.9 mmol/L (0.5-2.2) H 03/17/23 13:51 Lactic Acid (Sepsis) 1.8 mmol/L (0.5-2.2) 03/17/23 17:02 Calcium 9.0 mg/dL (8.5-10.5) 03/25/23 05:26 Phosphorus 3.7 mg/dL (2.5-4.5) 03/24/23 04:27 Magnesium 2.3 mg/dL (1.7-2.3) 03/23/23 04:25 Iron 52 ug/dL (59-158) L 03/24/23 04:27 TIBC 190 mcg/dl 03/24/23 04:27 % Saturation 27.3 % (20-50) 03/24/23 04:27 Unsat Iron Binding 138 ug/dL (112-347) 03/24/23 04:27 Total Bilirubin 0.2 mg/dL (0.15-1.2) 03/25/23 05:26 AST 22 U/L (0-40) 03/25/23 05:26 ALT 34 U/L (0-41) 03/25/23 05:26 Alkaline Phosphatase 84 U/L (40-130) 03/25/23 05:26 Creatine Kinase 38 U/L (39-308) L 03/17/23 13:51 C-Reactive Protein 347.8 mg/L (0.0-4.9) H 03/17/23 13:51 Total Protein 7.0 g/dL (6.6-8.7) 03/25/23 05:26 Albumin 3.5 g/dL (3.5-5.2) 03/25/23 05:26 Globulin 3.5 g/dL (1.3-4.6) 03/25/23 05:26 Triglycerides 148 mg/dL (0-150) 03/25/23 05:26 Cholesterol 171 mg/dL (0-200) 03/25/23 05:26 LDL Cholesterol, Calc 113 mg/dL (50-129) 03/25/23 05:26 Total VLDL Cholesterol 30 mg/dL (0-30) 03/25/23 05:26 HDL Cholesterol 28 mg/dL (60-100) L 03/25/23 05:26 Cholesterol/HDL Ratio 6.11 mg/dL (1.0-5.00) H 03/25/23 05:26 Vitamin B12 470 pg/mL (232-1245) 03/24/23 04:27 Folate 7.7 ng/mL (4.5-32.2) 03/25/23 05:26 Procalcitonin 0.33 ng/mL (0-0.5) 03/17/23 13:51 TSH 1.24 uIU/mL (0.27-4.20) 03/24/23 04:27 Urine Color Light yellow (Yellow) 03/25/23 04:55 Urine Appearance Clear (CLEAR) 03/25/23 04:55 Urine pH 5 (5-7) 03/25/23 04:55 Ur Specific [place] 1.010 (1.005-1.030) 03/25/23 04:55 Urine Protein Neg (Negative) 03/25/23 04:55 Urine Glucose (UA) Norm (Normal) 03/25/23 04:55 Urine Ketones Negative (Negative) 03/25/23 04:55 Urine Blood Neg (Negative) 03/25/23 04:55 Urine Nitrate Negative (Negative) 03/25/23 04:55 Urine Bilirubin Neg (Negative) 03/25/23 04:55 Urine Urobilinogen Neg mg/dL (Negative) 03/25/23 04:55 Ur Leukocyte Esterase Negative (Negative) 03/25/23 04:55 Vancomycin Trough 12.3 ug/mL (10-15) 03/23/23 18:00 HIV 1&2 Ab & HIV 1 Ag Non-reactive (Non-Reactiv) 03/24/23 04:27 HIV 1&2 Antibody Non-reactive (Non-Reactiv) 03/24/23 04:27 Vitals Last Vital Signs Temp 96.5 F L 03/25/23 07:54 Pulse 72 03/25/23 07:54 Resp 17 03/25/23 07:54 BP 169/89 03/25/23 08:58 Pulse Ox 96 03/25/23 07:54 O2 Del Method Room Air 03/25/23 04:00 O2 Flow Rate 6 03/25/23 08:00 Discharge Plan Discharge Patient Disposition: Home Condition: Stable Prescriptions: New losartan 50 mg Tablet 100 mg PO DAILY Qty: 60 0RF amlodipine 5 mg tablet 5 mg PO DAILY Qty: 30 0RF Lantus Solostar U-100 Insulin 100 unit/mL (3 mL) insulin pen 15 unit SUBCUT QPM Qty: 15 0RF linezolid 600 mg tablet 600 mg PO BID 10 Days Qty: 20 0RF Januvia 100 mg tablet 100 mg PO DAILY Qty: 30 0RF (DME) BD Ultra-Fine Micro Pen Needle 32 gauge x 1/4 needle See Rx Instructions .ROUTE .MEDSUPPLY Qty: 50 0RF Rx Instructions: As directed (DME) Glucocard 01 Meter Kit See Rx Instructions .ROUTE .MEDSUPPLY Qty: 1 0RF Rx Instructions: As directed (DME) lancets Misc See Rx Instructions .ROUTE .MEDSUPPLY Qty: 100 0RF Rx Instructions: As directed Continued acetaminophen 500 mg Tablet 1,000 mg PO Q6H PRN (Reason: Pain) Discharge Orders: Discharge Order (Routine); Ordered 03/25/23 Ordered By: Ander Miller Referrals: Andrew Burns MD [Physician] - 2 weeks (We have notified your physician's clinic of the need for a follow-up appointment to be scheduled. If you have not heard from them within the next 2 business days, please call them directly. You may also reach out to our retail business development manager at [phone] and she can assist you.) Warren Pete MD [Physician] - 03/30/23 2:00 pm Discharge Diet: Regular, Cardiac and Diabetic Discharge Activity: Resume usual activity and Increase activity as tolerated Patient Instructions: Diabetes and Diet, Amlodipine (By mouth), Losartan (By mouth), Linezolid (By mouth), Sitagliptin (By mouth), Insulin Glargine (By injection), Type 2 Diabetes in Adults: New Diagnosis (GEN), Opioid Safety Activity Restrictions/Additional Instructions: Multiple new medications have been started. For high blood pressure take amlodipine 5 mg daily and losartan 100 mg daily. Follow-up diabetes take 15 units of Lantus as discussed in detail every evening and Januvia 100 mg oral daily. Please check your blood pressure and blood sugar daily and maintain a diary and follow-up with a primary care provider on set appointment for further adjustment of medications as needed. Your fasting blood sugar should be less than 120 and your blood pressure should be less than 140/90 mmHg. Discharge Attestations Time Spent in Discharge Care*: greater than 30 min Specific Discharge Activities: educating patient, educating and/or supporting family/caregiver, discussing with pcp/other providers, discussing with onsite case manager/social workers/dc planners, documenting/other paperwork and evaluating patient/reviewing data Status at Discharge: Cognitive status at discharge: cognitively intact, Behavioral status at discharge: cooperative, Functional status at discharge: independent ambulation, Overall status at discharge: patient is back to baseline Quality Metrics Clinical Quality Measures [ No reported AMI, CVA or VTE this stay] Coding Level of Care Code 38587 Total time (in minutes) for Discharge: 60 Diagnoses Cellulitis L03.221 Site of cellulitis: neck Acute hyperglycemia R73.9 Acute hyponatremia E87.1 Leukocytosis D72.829
[2023-03-25 12:00] VITALS: BP 150/82; PULSE 74; RESP 16; TEMP 36.4; O2SAT 95
[2023-03-25 12:07] LABS: Glucose Point of Care 160 mg/dL (70-110)
[2023-03-25 13:45] VITALS: BP 150/82; PULSE 74; RESP 16; TEMP 36.4; O2SAT 95
== END 2023-03-25 13:48 | disposition home or self-care (01) | DRG 603 ==
LOC: ER 15:43 → MEDSURG 17:29
PROVIDERS: Surgery; Admitting Provider Internal Medicine; Emergency Provider Emergency Medicine; Visit Provider Student in an Organized Health Care Education/Training Program
PROC: 0J950ZZ Drainage of Left Neck Subcutaneous Tissue and Fascia, Open Approach (ICD-10-PCS; principal; 2023-03-22 17:00)
DX: L02.13 Carbuncle of neck (principal); L02.213 Cutaneous abscess of chest wall; L03.221 Cellulitis of neck; E87.1 Hypo-osmolality and hyponatremia; B95.62 Methicillin resistant Staphylococcus aureus infection as the cause of diseases classified elsewhere; Z87.891 Personal history of nicotine dependence; E11.65 Type 2 diabetes mellitus with hyperglycemia; I10 Essential (primary) hypertension
CPT/HCPCS: 36415; 36416; 70360; 70491; 76536; 80048; 80053; 80061; 80069; 80202; 81003; 82550; 82607; 82746; 82962; 83036; 83540; 83550; 83605; 83735; 84100; 84145; 84443; 85025; 85610; 86140; 87040; 87070; 87075; 87077; 87186; 87205; 87641; 87806; 96372; G0378; J0696; J1100; J1815; J1885; J2405; J2543; J2704; J3010; J3370; J7030; Q9967

== ENCOUNTER 2023-07-31 08:41 | Emergency (ER) | payer MEDICAID, SELFPAY ==
[2023-07-31 08:43] VITALS: BP 145/85; PULSE 91; RESP 15; TEMP 36.7; O2SAT 98
--- NOTE | 2023-07-31 08:51 | W.ED.GENADLT ---
HPI - General Adult General: Chief complaint: Skin/Abscess/Foreign Body Stated complaint: pt stated spider bite on neck Time Seen by Provider: 07/31/23 08:46 Source: patient Mode of arrival: ambulatory History of Present Illness: 58-year-old male presents to the emergency room complaining of what he thought was a spider bite that happened about 1 week ago in the right submandibular region. Over the last 2 days he developed significant swelling and inflammation exquisitely tender in that area firm to the touch she denies any fever sweats or chills patient is diabetic on insulin. No active drainage. No difficulty speech or swallowing no difficulty breathing no stridor. Onset (ago): week(s) (1) Location: neck Severity: moderate Quality: aching Pain Consistency: constant Relieving factors: none Exacerbating factors: none Associated symptoms: Reports malaise and nausea; Deny chest pain, confusion, cough, diaphoresis, decreased appetite, dyspnea, fevers/chills, headache(s), rash, palpitations, seizures, short of breath, syncope, vomiting or weakness Review of Systems Const: Reports: malaise; Denies: fever(s), chills or diaphoresis Card: Denies: chest pain, palpitations or syncope Resp: Denies: dyspnea GI: Reports: nausea; Denies: abdominal pain or vomiting : Denies: dysuria, urinary frequency or urinary urgency Musc: Reports: neck pain; Denies: back pain Skin/Breast: Denies: rash Neuro: Denies: headache(s) or confusion PFSH ED PFSH: Medical History Hypertension Newly diagnosed diabetes Dyslipidemia (high LDL; low HDL) Umbilical hernia Surgical History History of hernia repair Social History Smoking and tobacco/nicotine status: former use of tobacco/nicotine Alcohol intake: never Substance/Drug Use: never Physical Exam Const: COMMON NORMALS: no acute distress GENERAL APPEARANCE: cooperative and comfortable ORIENTATION/CONSCIOUSNESS: Yes awake, Yes oriented to person, Yes oriented to place and Yes oriented to time HENMT: COMMON NORMALS: normocephalic, atraumatic and hearing grossly normal bilaterally HEAD & SCALP: normocephalic and atraumatic Neck/C-Spine: OTHER: Large indurated area on the right submandibular space centrally there is eschar with some dried baldwin crusting no active drainage is approximately 4 to 5 inches x 2 to 3 inches in size. Exquisitely tender mildly erythematous unable to appreciate any fluctuation due to tenderness and induration. Resp: COMMON NORMALS: normal respiratory effort, No retractions, No use of accessory muscles and clear to auscultation bilaterally AUSCULTATION: clear to auscultation bilaterally Cardio: COMMON NORMALS: regular rate, regular rhythm and No murmurs present (Cardio) RATE: regular rate RHYTHM: regular rhythm GI: COMMON NORMALS: Soft to palpation and No hepatosplenomegaly present AUSCULTATION: Yes normoactive bowel sounds PALPATION: Yes Soft to palpation, No Tenderness to palpation present (GI), No Guarding due to palpation present (GI) and Yes No hepatosplenomegaly present Extremity: COMMON NORMALS: normal to inspection, capillary refill normal, no clubbing, cyanosis or edema, no calf tenderness and no pedal edema Neuro: SENSORIUM/ORIENTATION: Yes oriented to person, Yes oriented to place and Yes oriented to time Skin: COMMON NORMALS: no rashes or lesions noted GENERAL SKIN EXAM: no rashes or lesions noted Course Vital Signs: Vital signs: Vital Signs Temperature 98.0 F 07/31/23 08:43 Pulse Rate 91 07/31/23 08:43 Respiratory Rate 15 07/31/23 08:43 Blood Pressure 145/85 07/31/23 08:43 Pulse Oximetry 98 07/31/23 08:43 Oxygen Delivery Me thod Room Air 07/31/23 08:43 MDM - General Adult Medical Decision Making Patient has of this moderate size abscess that is fairly deep is tracking down the sternocleidomastoid muscle. I do not think we will be able to adequately drain it at the bedside here should it wood turner to be deeper there with the dissipated it would be difficult to manage. Unfortunately we do not have ENT on-call here. Discussed with ENT at [facility]' likely be an incision and drainage and discharge home patient prefers to go by private vehicle Dr. Barreto has agreed to see the patient. Because of the holiday and the weekend if she is if something is not done today is likely to be 3 to 4 days before anything would be done to evaluate with his diabetes by then could develop a much more significant abscess I would be considerably more difficult to deal with. Reviewed with the patient ENT at [facility] agrees will transfer patient elects to go by private vehicle so that he can have his drive him home tonight. Patient vies not to eat or drink images were clouded to [facility] so they can be reviewed by ENT Dr. Barreto will see the patient in the emergency room. Medical Records I reviewed the patient's medical records. Lab Data I reviewed the patient's lab results. 07/31/23 09:08 07/31/23 09:[address] 07/31/23 08:55 IMPRESSION: Two inflammatory areas of skin thickening with edema of the underlying subcutaneous fat in the right lateral upper neck. About 1.7 x 0.5 cm peripherally enhancing abnormality concerning for an abscess extending from the posterior focus toward the superficial margin of the right sternocleidomastoid muscle. No intramuscular abnormality, no inflammatory changes in the deep spaces of the neck. ADDENDUM: 07/31/23 1051 THIS REPORT CONTAINS FINDINGS THAT MAY BE CRITICAL TO PATIENT CARE. The findings were verbally communicated via telephone conference with ART CRUZ at 10:49 AM AIR CREW SUPERVISOR on 07/31/2023. The findings were acknowledged and understood. Laboratory Results WBC 8.29 10^3/uL (3.29-11.43) 07/31/23 09:08 RBC 5.37 10^6/uL (3.85-5.65) 07/31/23 09:08 Hgb 14.80 g/dL (11.27-16.99) 07/31/23 09:08 Hct 43.7 % (37-53) 07/31/23 09:08 MCV 81.4 fl (82-101) L 07/31/23 09:08 MCH 27.6 pg (27-33) 07/31/23 09:08 MCHC 33.9 g/dL (30-55) 07/31/23 09:08 RDW 12.7 % (12.1-15.1) 07/31/23 09:08 Plt Count 319 10^3/cmm (157-399) 07/31/23 09:08 MPV 9.7 fL (7.4-10.4) 07/31/23 09:08 Neut % (Auto) 73.7 % 07/31/23 09:08 Lymph % (Auto) 16.6 % 07/31/23 09:08 [place] % (Auto) 5.7 % 07/31/23 09:08 Eos % (Auto) 3.3 % 07/31/23 09:08 Baso % (Auto) 0.5 % 07/31/23 09:08 Neut # (Auto) 6.11 10^3/uL (1.8-7.7) 07/31/23 09:08 Lymph # (Auto) 1.4 10^3/uL (0.8-4.8) 07/31/23 09:08 [place] # (Auto) 0.5 10^3/uL (0.2-0.9) 07/31/23 09:08 Eos # (Auto) 0.3 10^3/uL (0.0-0.8) 07/31/23 09:08 Baso # (Auto) 0.0 10^3/uL (0.0-0.1) 07/31/23 09:08 Nucleated RBC % (auto) 0 % 07/31/23 09:08 Nucleated RBCs # 0.0 /100WBC 07/31/23 09:08 Sodium 134 mmol/L (136-145) L 07/31/23 09:08 Potassium 4.1 mmol/L (3.5-5.1) 07/31/23 09:08 Chloride 99 mmol/L (98-107) 07/31/23 09:08 Carbon Dioxide 24 mmol/L (22-29) 07/31/23 09:08 Anion Gap 15.1 (5-19) 07/31/23 09:08 BUN 11 mg/dL (8-23) 07/31/23 09:08 Creatinine 0.9 mg/dL (0.7-1.2) 07/31/23 09:08 GFR Calculation 86.1 mL/min (90-130) L 07/31/23 09:08 Glucose 233 mg/dL (65-115) H 07/31/23 09:08 Calculated Osmolality 285 mOsm/kg (285-295) 07/31/23 09:08 Calcium 9.3 mg/dL (8.5-10.5) 07/31/23 09:08 Total Bilirubin 0.5 mg/dL (0.15-1.2) 07/31/23 09:08 AST 12 U/L (0-40) 07/31/23 09:08 ALT 8 U/L (0-41) 07/31/23 09:08 Alkaline Phosphatase 75 U/L (40-130) 07/31/23 09:08 Total Protein 7.5 g/dL (6.6-8.7) 07/31/23 09:08 Albumin 4.2 g/dL (3.5-5.2) 07/31/23 09:08 Globulin 3.3 g/dL (1.3-4.6) 07/31/23 09:08 All radiology interpretation(s) finalized by discharge Discharge Plan Discharge Patient Disposition: Transfer to ED Clinical Impression: Abscess, neck, Cellulitis Condition: Stable Prescriptions: No Action acetaminophen 500 mg Tablet 1,000 mg PO Q6H PRN (Reason: Pain) amlodipine 5 mg tablet 5 mg PO DAILY Qty: 30 0RF insulin glargine [Lantus Solostar U-100 Insulin] 100 unit/mL (3 mL) insulin pen 15 unit SUBCUT QPM Qty: 15 0RF Januvia 100 mg tablet 100 mg PO DAILY Qty: 30 0RF (DME) pen needle, diabetic [BD Ultra-Fine Micro Pen Needle] 32 gauge x 1/4 needle See Rx Instructions .ROUTE .MEDSUPPLY Qty: 50 0RF Rx Instructions: As directed (DME) blood-glucose meter [Glucocard 01 Meter] Kit See Rx Instructions .ROUTE .MEDSUPPLY Qty: 1 0RF Rx Instructions: As directed (DME) lancets Misc See Rx Instructions .ROUTE .MEDSUPPLY Qty: 100 0RF Rx Instructions: As directed losartan 100 mg tablet 100 mg PO DAILY Referrals: Champ Gregory MD [Primary Care Provider] - Coding Level of Care Code ED 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
--- NOTE | 2023-07-31 08:55 | CTR_ITS ---
PROCEDURE INFORMATION: Exam: CT Neck With Contrast Exam date and time: 07/31/2023 10:17 AM Age: 58 years old Clinical indication: R submandibular abscess; Patient HX: Spider bite TECHNIQUE: Imaging protocol: Computed tomography of the neck with contrast. Radiation optimization: All CT scans at this facility use at least one of these dose optimization techniques: automated exposure control; mA and/or kV adjustment per patient size (includes targeted exams where dose is matched to clinical indication); or iterative reconstruction. Contrast material: OMNI 350; Contrast volume: 80 ml; Contrast route: INTRAVENOUS (IV); REPORTING DATA: Count of CT and Cardiac NM exams in prior 12 months: This patient has received [address] and 0 known cardiac nuclear medicine studies in the 12 months prior to the current study. COMPARISON: CT neck w con* [id number] 03/17/2023 2:58 PM RADIATION DOSE METRICS: Total DLP (mGy-cm): 280.61 FINDINGS: Paranasal sinuses: There is increased mucosal thickening in the maxillary sinuses and new mild mucosal thickening in the ethmoid sinuses in the right sphenoid sinus with no air-fluid levels suggestive of exacerbation of chronic sinusitis. Pharynx: Unremarkable. No significant tonsillar enlargement. Larynx: Unremarkable. Epiglottis is normal. Prevertebral and retropharyngeal spaces: Unremarkable. Salivary glands: Normal. Glands are normal in size. Thyroid: Normal in size. No nodules. Lymph nodes: No lymphadenopathy. Trachea: Visualized trachea is unremarkable. Lungs: Unremarkable as visualized. Bones/joints: No acute fracture. No suspicious lytic or sclerotic bone lesions. Soft tissues: There are 2 focal nodular areas of skin thickening in the right lateral upper neck with the maximal thickness of 6 mm with haziness of the underlying subcutaneous fat suggestive of inflammatory areas. The posterior area of skin thickening is associated with 1.7 cm long and 0.5 cm wide peripheral enhancing tract leading toward the outer contour of the right sternocleidomastoid muscle. CT/CT neck w con* [id number] IMPRESSION: Two inflammatory areas of skin thickening with edema of the underlying subcutaneous fat in the right lateral upper neck. About 1.7 x 0.5 cm peripherally enhancing abnormality concerning for an abscess extending from the posterior focus toward the superficial margin of the right sternocleidomastoid muscle. No intramuscular abnormality, no inflammatory changes in the deep spaces of the neck.
[2023-07-31 09:22] LABS: Basophils % 0.5 %; Eosinophils # 0.3 10^3/uL (0.0-0.8); Eosinophils % 3.3 %; Hematocrit 43.7 % (37-53); Lymphocytes # 1.4 10^3/uL (0.8-4.8); Lymphocytes % 16.6 %; Mean Corpuscular HGB Conc 33.9 g/dL (30-55); Mean Corpuscular Hemoglobin 27.6 pg (27-33); Mean Corpuscular Volume 81.4 fl (82-101); Mean Platelet Volume 9.7 fL (7.4-10.4); Monocytes # 0.5 10^3/uL (0.2-0.9); Monocytes % 5.7 %; Neutrophils # 6.11 10^3/uL (1.8-7.7); Neutrophils % 73.7 %; Nucleated Red Blood Cells % 0 %; Platelet Count 319 10^3/cmm (157-399); Red Blood Count 5.37 10^6/uL (3.85-5.65); Red Cell Distribution Width 12.7 % (12.1-15.1); White Blood Count 8.29 10^3/uL (3.29-11.43)
[2023-07-31 09:46] LABS: Alanine Aminotransferase 8 U/L (0-41); Albumin Level 4.2 g/dL (3.5-5.2); Alkaline Phosphatase 75 U/L (40-130); Anion Gap 15.1 (5-19); Aspartate Amino Transferase 12 U/L (0-40); Blood Urea Nitrogen 11 mg/dL (8-23); Calcium 9.3 mg/dL (8.5-10.5); Carbon Dioxide 24 mmol/L (22-29); Chloride 99 mmol/L (98-107); Globulin 3.3 g/dL (1.3-4.6); Glomerular Filtration Rate 86.1 mL/min (90-130); Glucose 233 mg/dL (65-115); Osmolality Calculated 285 mOsm/kg (285-295); Potassium 4.1 mmol/L (3.5-5.1); Sodium 134 mmol/L (136-145); Total Bilirubin 0.5 mg/dL (0.15-1.2); Total Protein 7.5 g/dL (6.6-8.7)
[2023-07-31] MEDS: iohexol 350 mg/mL 500 mL Btl (per mL) IV (10:20)
--- NOTE | 2023-07-31 12:31 | PC.NURSE ---
Patient was discharged with his IV left in and it was secured and covered completely with coban and dressing.
== END 2023-07-31 12:41 ==
PROVIDERS: Emergency Provider Family Medicine
DX: L02.11 Cutaneous abscess of neck (principal); L03.221 Cellulitis of neck; Z79.4 Long term (current) use of insulin; I10 Essential (primary) hypertension; E11.9 Type 2 diabetes mellitus without complications; E78.5 Hyperlipidemia, unspecified; Z87.891 Personal history of nicotine dependence
CPT/HCPCS: 36415; 70491; 80053; 85025; 87040; 99285; Q9967

== ENCOUNTER 2023-08-03 12:35 | Emergency (ER) | payer MEDICAID, SELFPAY ==
[2023-08-03 12:58] VITALS: BP 123/74; PULSE 90; TEMP 36.4; O2SAT 96; BMI 25.8
--- NOTE | 2023-08-03 15:00 | W.ED.WOUNDLC ---
HPI - Wound/Laceration General: Chief Complaint: General Medical Stated Complaint: wound Time Seen by Provider: 08/03/23 14:58 Source: patient and family Mode of arrival: ambulatory Limitations: no limitations History of Present Illness: Patient is a nice 58-year-old male who presents to ED today for re-evaluation of a wound to the right side of his neck. Patient was reportedly seen here in the ED on 07/31 and diagnosed with an abscess. CT report during that ED visit was as follows: CT/CT neck w con* [id number] IMPRESSION: Two inflammatory areas of skin thickening with edema of the underlying subcutaneous fat in the right lateral upper neck. About 1.7 x 0.5 cm peripherally enhancing abnormality concerning for an abscess extending from the posterior focus toward the superficial margin of the right sternocleidomastoid muscle. No intramuscular abnormality, no inflammatory changes in the deep spaces of the neck. Patient ended up being transferred to [facility] by private vehicle after our ED provider consulted with ENT physician Dr. Barreto who agreed to see patient. Patient states he is here in our ED today stating he was told he needed follow-up and does not want to drive back to [place] for his follow-up with the ENT that is scheduled for tomorrow. Patient states since the incision and drainage by Dr. Barreto the area feels much improved. Onset (ago): day(s) Location: face and neck Patient tetanus UTD: Yes Associated symptoms: Reports no associated symptoms; Denies chills or fever(s) Review of Systems Const: Denies: fever(s), chills, body aches, fatigue or malaise ENMT: Reports: other (no trouble breathing/swallowing/controlling saliva) Card: Denies: chest pain Resp: Denies: dyspnea Musc: Denies: neck pain PFS ED PFSH: Medical History Hypertension Newly diagnosed diabetes Dyslipidemia (high LDL; low HDL) Umbilical hernia Surgical History History of hernia repair Social History Smoking and tobacco/nicotine status: former use of tobacco/nicotine Alcohol intake: never Substance/Drug Use: never Physical Exam Const: COMMON NORMALS: no acute distress, average body habitus, patient oriented x3, no limitations, healthy appearing and alert HENMT: COMMON NORMALS: normocephalic and atraumatic HEAD & SCALP: normal to inspection, normocephalic and atraumatic HEAD IMAGES: 1. scabbed/recently incised and drained abscess; still small amount of erythema without warmth; no active drainage; some mild induration without fluctuance Neuro: COMMON NORMALS: patient oriented x3 SENSORIUM/ORIENTATION: Yes alert Course Vital Signs: Vital signs: Vital Signs Temperature 98.5 F 08/03/23 15:24 Pulse Rate 85 08/03/23 15:24 Respiratory Rate 14 08/03/23 15:24 Blood Pressure 121/68 08/03/23 15:24 Pulse Oximetry 98 08/03/23 15:24 Oxygen Delivery Me thod Room Air 08/03/23 15:18 MDM - Wound/Laceration Medical Decision Making Patient here for a follow-up following a right submandibular abscess that was drained by ENT a few days ago. Patient has an appointment with ENT Dr. Barreto scheduled for tomorrow but he states he came to the ED today hoping that this would suffice for follow-up as he does not wish to drive back to [place]. He states since the incision and drainage he does feel much improved. He states he was not discharged home with antibiotics following the I&D. At this time I would highly suggest he follow-up with his scheduled appointment tomorrow. He does state they obtained some type of culture and/or biopsy of the area. They can go over results of this tomorrow. Patient was agreeable to attend his appointment tomorrow. He is stable for discharge from the ED. Medical Records I reviewed the patient's medical records. No radiology studies performed this visit Discharge Plan Discharge Patient Disposition: Home Clinical Impression: Abscess of neck Condition: Stable Prescriptions: No Action acetaminophen 500 mg Tablet 1,000 mg PO Q6H PRN (Reason: Pain) amlodipine 5 mg tablet 5 mg PO DAILY Qty: 30 0RF insulin glargine [Lantus Solostar U-100 Insulin] 100 unit/mL (3 mL) insulin pen 15 unit SUBCUT QPM Qty: 15 0RF Januvia 100 mg tablet 100 mg PO DAILY Qty: 30 0RF (DME) pen needle, diabetic [BD Ultra-Fine Micro Pen Needle] 32 gauge x 1/4 needle See Rx Instructions .ROUTE .MEDSUPPLY Qty: 50 0RF Rx Instructions: As directed (DME) blood-glucose meter [Glucocard 01 Meter] Kit See Rx Instructions .ROUTE .MEDSUPPLY Qty: 1 0RF Rx Instructions: As directed (DME) lancets Misc See Rx Instructions .ROUTE .MEDSUPPLY Qty: 100 0RF Rx Instructions: As directed losartan 100 mg tablet 100 mg PO DAILY Discharge Orders: Discharge ED (Routine); Ordered 08/03/23 Ordered By: Meg Dolan Referrals: Champ Gregory MD [Primary Care Provider] - Activity Restrictions/Additional Instructions: As we discussed please follow-up with Dr. Barreto at your scheduled appointment tomorrow for further evaluation. 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
[2023-08-03 15:16] VITALS: BP 121/68; PULSE 85; RESP 14; TEMP 36.7; O2SAT 98
[2023-08-03 15:18] VITALS: O2SAT 98
[2023-08-03 15:24] VITALS: BP 121/68; PULSE 85; RESP 14; TEMP 36.9; O2SAT 98
== END 2023-08-03 15:41 | disposition home or self-care (01) ==
PROVIDERS: Emergency Provider Physician Assistant
DX: L02.11 Cutaneous abscess of neck (principal); Z79.4 Long term (current) use of insulin; I10 Essential (primary) hypertension; E78.5 Hyperlipidemia, unspecified; Z87.891 Personal history of nicotine dependence
CPT/HCPCS: 99281

== ENCOUNTER → 2024-03-16 15:19 | Outpatient (BNVA) | payer MEDICAID, SELFPAY | PROVIDERS: PCP Family Medicine Adult Medicine; Visit Provider Podiatrist Foot & Ankle Surgery | DX: L02.612 Cutaneous abscess of left foot; E11.621 Type 2 diabetes mellitus with foot ulcer; L97.528 Non-pressure chronic ulcer of other part of left foot with other specified severity; L03.221 Cellulitis of neck; Z79.84 Long term (current) use of oral hypoglycemic drugs; Z79.4 Long term (current) use of insulin | CPT/HCPCS: 73610; 99204 ==

== ENCOUNTER 2024-03-16 16:01 | Inpatient (IN) | payer MEDICAID, SELFPAY ==
--- NOTE | 2024-03-16 16:11 | XR_ITS ---
WS: [id number] Examination: XR foot LT min 3V* [id number] Reason for Exam: abscess Date: March 16, 2024 Comparison: None. Findings: There is soft tissue swelling of the foot. Vascular calcification is present. Calcaneal spurring is i dentified. There is no fracture or dislocation. I see no bony destruction. XR/XR foot LT min 3V* [id number] Impression: There is soft tissue swelling present. If a soft tissue abscess is of concern d irected ultrasound or CT postcontrast is recommended for further evaluation. Os teomyelitis would be best visualized by MRI if clinically indicated..
[2024-03-16 16:12] VITALS: BP 115/79; PULSE 100; RESP 16; TEMP 36.8; O2SAT 95; BMI 27.5
--- NOTE | 2024-03-16 16:36 | ED_ITS ---
HPI - Extremity Problem 2 General: Chief complaint: Extremity Injury, Lower Stated complaint: foot injury/pain Time Seen by Provider: 03/16/24 16:13 Source: patient Mode of arrival: ambulatory Limitations: no limitations History of Present Illness: 59-year-old male history of diabetes he states he had wound to his left foot he noticed a few days ago to had increasing erythema. Patient is seen podiatry today and was sent here for admission. He does have some pain he denies any fever denies any recent antibiotics. Associated symptoms: Deny chest pain, fever(s) or rash Related Data Home Medications Medication Instructions Recorded Confirmed acetaminophen 500 mg tablet 1,000 mg PO Q6H PRN Pain 03/17/23 03/16/24 losartan 100 mg tablet 100 mg PO DAILY 07/31/23 03/16/24 amoxicillin 875 mg-potassium 1 tab PO Q12H 03/16/24 03/16/24 clavulanate 125 mg tablet metformin 1,000 mg tablet 1,000 mg PO BID 03/16/24 03/16/24 metformin 500 mg tablet 500 mg PO BID 03/16/24 03/16/24 Previous Rx's Medication Instructions Recorded amlodipine 5 mg tablet 5 mg PO DAILY #30 tabs 03/25/23 blood-glucose meter (Glucocard 01 #1 ea 03/25/23 Meter kit) insulin glargine 100 unit/mL (3 15 unit (0.15 mL) SUBCUT QPM #15 mL 03/25/23 mL) subcutaneous pen (Lantus Solostar U-100 Insulin) lancets #100 ea 03/25/23 pen needle, diabetic 32 gauge x #50 ea 03/25/23 1/ (BD Ultra-Fine Micro Pen Needle) sitagliptin phosphate 100 mg 100 mg PO DAILY #30 tabs 03/25/23 tablet (Januvia) Allergies Allergy/AdvReac Type Severity Reaction Status Date / Time No Known Allergies Allergy Verified 03/16/24 15:00 Review of Systems 2 Const: Denies: fever(s), chills, body aches or change in appetite ENMT: Denies: throat pain or dental pain Card: Denies: chest pain Resp: Denies: dyspnea GI: Denies: abdominal pain, nausea, vomiting or diarrhea Musc: Reports: extremity pain; Denies: neck pain or back pain Skin/Breast: Reports: erythema; Denies: rash PFSH ED 2 PFSH: Medical History Hypertension Newly diagnosed diabetes Dyslipidemia (high LDL; low HDL) Umbilical hernia Surgical History History of hernia repair Social History Smoking and tobacco/nicotine status: unknown if used tobacco/nicotine Alcohol intake: never Substance/Drug Use: never Physical Exam 2 Const: COMMON NORMALS: no acute distress, patient oriented x3 and healthy appearing HENMT: COMMON NORMALS: normocephalic and atraumatic HEAD & SCALP: n ormocephalic and atraumatic Eye: COMMON NORMALS: conjunctivae normal CONJUNCTIVA: Yes conjunctivae normal Neck/C-Spine: COMMON NORMALS: full ROM and supple Chest: COMMONS NORMALS: normal inspection of the chest Resp: COMMON NORMALS: normal respiratory effort Cardio: COMMON NORMALS: regular rate RATE: regular rate Extremity: COMMON NORMALS: full ROM NARRATIVE EXTREMITY EXAM: Erythema noted to left heel going up ankle is warm to touch Neuro: COMMON NORMALS: patient oriented x3, moves all extremities and no focal motor deficits Psych: COMMON NORMALS: mental status grossly normal, Normal thought process present and cooperative THOUGHT PROCESS: Normal thought process present Skin: COMMON NORMALS: no rashes or lesions noted GENERAL SKIN EXAM: no rashes or lesions noted Course 2 Vital Signs: Vital signs: Vital Signs Temperature 98.3 F 03/16/24 16:12 Pulse Rate 100 03/16/24 16:12 Respiratory Rate 16 03/16/24 16:12 Blood Pressure 115/79 03/16/24 16:12 Pulse Oximetry 95 03/16/24 16:12 Oxygen Delivery Me thod Room Air 03/16/24 16:12 MDM - Extremity (Nontraumatic) Medical Decision Making Patient presents with left foot cellulitis spoke to hospitalist along with steward/stewardess dining room will admit at this time did start patient on IV antibiotics. Medical Records I reviewed the patient's medical records. Lab Data I reviewed the patient's lab results. 03/16/24 17:02 03/16/24 17:02 Radiology Impressions Foot X-Ray 03/16/24 16:11 Impression: There is soft tissue swelling present. If a soft tissue abscess is of concern directed ultrasound or CT postcontrast is recommended for further evaluation. Osteomyelitis would be best visualized by MRI if clinically indicated.. Laboratory Results WBC 16.19 10^3/uL (3.29-11.43) H 03/16/24 17:02 RBC 4.65 10^6/uL (3.85-5.65) 03/16/24 17:02 Hgb 13.30 g/dL (11.27-16.99) 03/16/24 17:02 Hct 39.8 % (37-53) 03/16/24 17:02 MCV 85.6 fl (82-101) 03/16/24 17:02 MCH 28.6 pg (27-33) 03/16/24 17:02 MCHC 33.4 g/dL (30-55) 03/16/24 17:02 RDW 12.7 % (12.1-15.1) 03/16/24 17:02 Plt Count 444 10^3/cmm (157-399) H 03/16/24 17:02 MPV 9.4 fL (7.4-10.4) 03/16/24 17:02 Neut % (Auto) 84.5 % 03/16/24 17:02 Lymph % (Auto) 8.3 % 03/16/24 17:02 [place] % (Auto) 5.4 % 03/16/24 17:02 Eos % (Auto) 0.9 % 03/16/24 17:02 Baso % (Auto) 0.2 % 03/16/24 17:02 Neut # (Auto) 13.67 10^3/uL (1.8-7.7) H 03/16/24 17:02 Lymph # (Auto) 1.3 10^3/uL (0.8-4.8) 03/16/24 17:02 [place] # (Auto) 0.9 10^3/uL (0.2-0.9) 03/16/24 17:02 Eos # (Auto) 0.2 10^3/uL (0.0-0.8) 03/16/24 17:02 Baso # (Auto) 0.0 10^3/uL (0.0-0.1) 03/16/24 17:02 Nucleated RBC % (auto) 0 % 03/16/24 17:02 Nucleated RBCs # 0.0 /100WBC 03/16/24 17:02 ESR 46 mm/hr (0-10) H 03/16/24 17:02 All radiology interpretation(s) finalized by discharge Discharge Plan Discharge Patient Disposition: Admitted As Inpatient Clinical Impression: Type 2 diabetes mellitus, Cellulitis of foot, left Condition: Stable Prescriptions: No Action amoxicillin-pot clavulanate 875-125 mg tablet 1 tab PO Q12H metformin 500 mg tablet 500 mg PO BID metformin 1,000 mg tablet 1,000 mg PO BID acetaminophen 500 mg Tablet 1,000 mg PO Q6H PRN (Reason: Pain) amlodipine 5 mg tablet 5 mg PO DAILY Qty: 30 0RF insulin glargine [Lantus Solostar U-100 Insulin] 100 unit/mL (3 mL) insulin pen 15 unit SUBCUT QPM Qty: 15 0RF Januvia 100 mg tablet 100 mg PO DAILY Qty: 30 0RF (DME) pen needle, diabetic [BD Ultra-Fine Micro Pen Needle] 32 gauge x 1/4 needle See Rx Instructions .ROUTE .MEDSUPPLY Qty: 50 0RF Rx Instructions: As directed (DME) blood-glucose meter [Glucocard 01 Meter] Kit See Rx Instructions .ROUTE .MEDSUPPLY Qty: 1 0RF Rx Instructions: As directed (DME) lancets Misc See Rx Instructions .ROUTE .MEDSUPPLY Qty: 100 0RF Rx Instructions: As directed losartan 100 mg tablet 100 mg PO DAILY Referrals: Warren Pete MD [Primary Care Provider] - Coding 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
[2024-03-16 17:13] LABS: Basophils % 0.2 %; Eosinophils # 0.2 10^3/uL (0.0-0.8); Eosinophils % 0.9 %; Hematocrit 39.8 % (37-53); Lymphocytes # 1.3 10^3/uL (0.8-4.8); Lymphocytes % 8.3 %; Mean Corpuscular HGB Conc 33.4 g/dL (30-55); Mean Corpuscular Hemoglobin 28.6 pg (27-33); Mean Corpuscular Volume 85.6 fl (82-101); Mean Platelet Volume 9.4 fL (7.4-10.4); Monocytes # 0.9 10^3/uL (0.2-0.9); Monocytes % 5.4 %; Neutrophils # 13.67 10^3/uL (1.8-7.7); Neutrophils % 84.5 %; Nucleated Red Blood Cells % 0 %; Platelet Count 444 10^3/cmm (157-399); Red Blood Count 4.65 10^6/uL (3.85-5.65); Red Cell Distribution Width 12.7 % (12.1-15.1); White Blood Count 16.19 10^3/uL (3.29-11.43)
[2024-03-16 17:15] LABS: Erythrocyte Sedimentation Rate 46 mm/hr (0-10)
[2024-03-16 17:33] LABS: Alanine Aminotransferase 19 U/L (0-41); Albumin Level 4.1 g/dL (3.5-5.2); Alkaline Phosphatase 86 U/L (40-130); Anion Gap 17.9 (5-19); Aspartate Amino Transferase 18 U/L (0-40); Blood Urea Nitrogen 17 mg/dL (8-23); C Reactive Protein 143.4 mg/L (0.0-4.9); Calcium 9.9 mg/dL (8.5-10.5); Carbon Dioxide 27 mmol/L (22-29); Chloride 96 mmol/L (98-107); Creatinine Clr Calc Pharmacy 78.4374; Globulin 4.4 g/dL (1.3-4.6); Glomerular Filtration Rate 68.1 mL/min (90-130); Glucose 137 mg/dL (65-115); Osmolality Calculated 286 mOsm/kg (285-295); Potassium 4.9 mmol/L (3.5-5.1); Sodium 136 mmol/L (136-145); Total Bilirubin 0.4 mg/dL (0.15-1.2); Total Protein 8.5 g/dL (6.6-8.7)
[2024-03-16 17:34] LABS: Lactic Sepsis W/Reflex 1.7 mmol/L (0.5-2.2)
[2024-03-16 18:00] VITALS: BP 133/78; PULSE 92; O2SAT 92
[2024-03-16 18:17] VITALS: BMI 27.3
[2024-03-16] MEDS: vancomycin 1,000 MG in sodium chloride 0.9% 250 ML 250 MG IV (18:22)
--- NOTE | 2024-03-16 18:30 | P.HP_ITS ---
Providers/Chief Complaint 2 Admitting Physician: Jess Samuel MD Primary Care Provider: Warren Pete MD Chief Complaint: foot injury/pain History of Present Illness Richie Guidry is a 59 year old male with chronic diabetic foot ulcer of left side, today he was evaluated by Dr. Crews in the clinic ulcer seems to be infected wound was draining yellow fluid, he was sent to the ER for further evaluation. Suspicion of deep tissue abscess extensive/progressive cellulitis with tenderness. Patient will need MRI of left foot and will need surgical debridement. Patient is stating that he has not noticed any chills, fever nausea vomiting or diarrhea at home, he has been taking Augmentin for quite some days, he is not sure what exactly happened but stating that he probably stepped on his cat and there is a possibility that cat claws caused a puncture wound of his left heel . Findings compatible with cellulitis concentrated about the calcaneal fat pad. 2. Small artery are organizing rim enhancing fluid collection is noted within the calcaneal fat pad with the additional finding of possible sinus tract/overlying calcaneal cutaneous injury/ulceration. Correlate with physical exam. 3. No acute or aggressive osseous abnormality. Review of Systems 2 Const: Reports: fever(s) and chills Eyes: Denies: change in vision ENMT: Denies: throat pain Card: Denies: chest pain Resp: Denies: dyspnea GI: Denies: abdominal pain : Denies: flank pain Musc: Reports: extremity pain Skin/Breast: Reports: rash Neuro: Denies: headache(s) Medications/Allergies Home Medications Medication Instructions Recorded Confirmed Last Taken Type acetaminophen 500 mg tablet 1,000 mg PO Q6H PRN Pain 03/17/23 03/17/24 Unknown History blood-glucose meter (Glucocard 01 #1 ea 03/25/23 03/17/24 Unknown Rx Meter kit) lancets #100 ea 03/25/23 03/17/24 Unknown Rx pen needle, diabetic 32 gauge x #50 ea 03/25/23 03/17/24 Unknown Rx 1/4 (BD Ultra-Fine Micro Pen Needle) amoxicillin 875 mg-potassium 1 tab PO Q12H 03/16/24 03/17/24 03/16/24 History clavulanate 125 mg tablet metformin 1,000 mg tablet 1,000 mg PO BID 03/16/24 03/17/24 Unknown History metformin 500 mg tablet 500 mg PO BID 03/16/24 03/17/24 03/16/24 History doxycycline hyclate 100 mg capsule 100 mg PO BID 03/17/24 03/17/24 03/16/24 History Allergies Allergy/AdvReac Type Severity Reaction Status Date / Time No Known Allergies Allergy Verified 03/16/24 15:00 PFSH Acute 2 PFSH: Medical History Hypertension Newly diagnosed diabetes Dyslipidemia (high LDL; low HDL) Umbilical hernia Surgical History History of hernia repair Social History Smoking and tobacco/nicotine status: unknown if used tobacco/nicotine Alcohol intake: never Substance/Drug Use: never Vitals/I&O/Wt Last Vital Signs Temp 98.3 F 03/16/24 16:12 Pulse 92 03/16/24 18:00 Resp 16 03/16/24 16:12 BP 133/78 03/16/24 18:00 Pulse Ox 92 03/16/24 18:00 O2 Del Method Room Air 03/16/24 18:00 Weight last 48 hrs Weight 87.09 kg Physical Exam 2 Narrative: Puncture wound left foot, diabetic foot ulcer Progressive cellulitis signs Purulent material Tender on palpation Discoloration mixture of erythema and ecchymosis Edema of foot noted Tenderness of heels Awake and alert S1, S2 Abdomen soft Currently on room air Hemodynamic stable Data 03/17/24 04:30 03/17/24 04:30 Micro: Microbiology 03/16/24 17:02 Blood Culture - Preliminary Blood SPECIMEN COLLECTED 03/16/24 16:55 Blood Culture - Preliminary Blood SPECIMEN COLLECTED A&P Assessment and plan (1) Hypertension: (2) Type 2 diabetes mellitus: (3) Cellulitis: Qualifiers: Site of cellulitis: neck Qualified Code(s): L03.221 - Cellulitis of neck (4) Cellulitis of foot, left: Plan Progressive cellulitis Diabetic foot ulcer Will request MRI of the foot Start broad-spectrum antibiotics with clindamycin for toxin suppression Will keep him n.p.o. after midnight Dr. Li consulted Opioids along bowel regimen Patient not septic at this point Lactic acid is normal No fever Hemodynamically stable Patient can have diabetic diet until midnight Requested CRP and ESR Full code N.p.o. from midnight DVT prophylaxis: Heparin for tonight Attestations 2 Medical Necessity Statement*: More than 2 midnights anticipated Diagnoses Hypertension I10 Type 2 diabetes mellitus E11.9 Cellulitis L03.221 Site of cellulitis: neck Cellulitis of foot, left L03.116
--- NOTE | 2024-03-16 18:40 | CTR_ITS ---
PROCEDURE INFORMATION: Exam: CT Left Lower Extremity, Foot Exam date and time: 03/17/2024 2:48 AM Age: 59 years old Clinical indication: Pain; Cellulitis; Foot; Left; Additional info: Cellulityis TECHNIQUE: Imaging protocol: CT of the left lower extremity with intravenous contrast was performed. Exam focused on the foot. Radiation optimization: All CT scans at this facility use at least one of these dose optimization techniques: automated exposure control; mA and/or kV adjustment per patient size (includes targeted exams where dose is matched to clinical indication); or iterative reconstruction. Contrast material: OMNI 350; Contrast volume: 100 ml; Contrast route: INTRAVENOUS (IV); COMPARISON: CR XR foot LT min 3V* [id number] 03/16/2024 4:35 PM RADIATION DOSE METRICS: Total DLP (mGy-cm): 153.67 FINDINGS: Bones/joints: No acute or aggressive osseous abnormality. Inferior calcaneal enthesophyte. Scattered osteoarthritis. Soft tissues: Diffuse soft tissue thickening and swelling, particularly over the calcaneal fat pad. There is a small early organizing rim enhancing collection within the calcaneal fat pad, measuring about 1.2 x 0.6 x 0.6 mm (series 5, image 61; series 8, image 54). From this small early organizing collection there appears to be soft tissue inflammatory stranding and postcontrast enhancement extending towards the skin. There is a small region of heterogeneous attenuation extending through the skin suggesting possible sinus tract versus ulceration/cutaneous injury (series 5 images 61 through 66). Superior Achilles tendon enthesophyte. Vasculature: Peripheral arterial vascular disease. CT/CT foot LT w con [id number] IMPRESSION: 1. Findings compatible with cellulitis concentrated about the calcaneal fat pad. 2. Small artery are organizing rim enhancing fluid collection is noted within the calcaneal fat pad with the additional finding of possible sinus tract/overlying calcaneal cutaneous injury/ulceration. Correlate with physical exam. 3. No acute or aggressive osseous abnormality.
[2024-03-16 19:14] LABS: Procalcitonin 0.13 ng/mL (0-0.5); Vitamin B12 428 pg/mL (232-1245)
--- NOTE | 2024-03-16 19:14 | P.CONIM_ITS ---
Providers/Reason For Consult 2 Consulting Physician/Specialty*: Dr. Andrew Crews DPM/ Podiatry Reason for Consult*: Left foot cellulitis/Abscess Attending Physician: Jess Samuel MD Primary Care Provider: Warren Pete MD History of Present Illness History of Present Illness Richie Guidry is a 59 year old male who presented to the podiatry outpatient clinic today 03/16/2024 with complaint of left foot pain and redness. Patient states that a few days ago he was walking out in his yard barefoot when he stepped on something. He states that he does not know what he stepped on. Over the course of the next few days he noticed pain and redness over the left heel. He went to emergency department [facility] where they took x-rays and told him that there was no foreign body within his foot. He states that they also dug around in his foot and sent to remove a foreign object which there was none. He was sent home with oral antibiotics and referred to our podiatry clinic. Upon presentation to the clinic today in the outpatient setting he was noted to have extremely red hot swollen foot purulence coming from the fracture of the left foot. Large blister to lateral aspect of left heel with concern for underlying abscess formation. Cultures of the plantar heel puncture wound were obtained in clinic today and sent to micro for ID and sensitivity. X-rays taken in the podiatry clinic failed to show foreign body or gas accumulation. However, given the extent of the infection he was sent to the emergency department for further workup and evaluation, admission and IV antibiotic therapy. Of note, patient had neck abscess at the end of last 2022 with MRSA being the primary organism. Patient states that he has had worsening constitutional symptoms including fever and nausea over the course of the past couple of days. Review of Systems 2 General: Reports: 10 or more systems reviewed and unremarkable except in HPI and below Const: Denies: fever(s), chills, body aches or change in appetite Eyes: Denies: change in vision or blurry vision Card: Denies: chest pain, palpitations or irregular heart rhythm Resp: Denies: dyspnea GI: Denies: abdominal pain, nausea, vomiting or diarrhea Musc: Reports: joint stiffness Skin/Breast: Reports: non-healing lesions and lesions Neuro: Reports: numbness in extremities Medications/Allergies Home Medications Medication Instructions Recorded Confirmed Last Taken Type acetaminophen 500 mg tablet 1,000 mg PO Q6H PRN Pain 03/17/23 03/16/24 Unknown History amlodipine 5 mg tablet 5 mg PO DAILY #30 tabs 03/25/23 03/16/24 Unknown Rx blood-glucose meter (Glucocard 01 #1 ea 03/25/23 03/16/24 Unknown Rx Meter kit) insulin glargine 100 unit/mL (3 15 unit (0.15 mL) SUBCUT QPM #15 mL 03/25/23 03/16/24 07/30/23 Rx mL) subcutaneous pen (Lantus Solostar U-100 Insulin) lancets #100 ea 03/25/23 03/16/24 Unknown Rx pen needle, diabetic 32 gauge x #50 ea 03/25/23 03/16/24 Unknown Rx 1/4 (BD Ultra-Fine Micro Pen Needle) sitagliptin phosphate 100 mg 100 mg PO DAILY #30 tabs 03/25/23 03/16/24 Unknown Rx tablet (Januvia) losartan 100 mg tablet 100 mg PO DAILY 07/31/23 03/16/24 Unknown History amoxicillin 875 mg-potassium 1 tab PO Q12H 03/16/24 03/16/24 Unknown History clavulanate 125 mg tablet metformin 1,000 mg tablet 1,000 mg PO BID 03/16/24 03/16/24 Unknown History metformin 500 mg tablet 500 mg PO BID 03/16/24 03/16/24 Unknown History Allergies Allergy/AdvReac Type Severity Reaction Status Date / Time No Known Allergies Allergy Verified 03/16/24 15:00 PFSH Acute 2 PFSH: Medical History Hypertension Newly diagnosed diabetes Dyslipidemia (high LDL; low HDL) Umbilical hernia Surgical History History of hernia repair Social History Smoking and tobacco/nicotine status: unknown if used tobacco/nicotine Alcohol intake: never Substance/Drug Use: never Vitals/I&O/Wt Last Vital Signs Temp 98.3 F 03/16/24 16:12 Pulse 92 03/16/24 18:00 Resp 16 03/16/24 16:12 BP 133/78 03/16/24 18:00 Pulse Ox 92 03/16/24 18:00 O2 Del Method Room Air 03/16/24 18:00 Weight last 48 hrs Weight 190 lb 6 oz Weight 192 lb Physical Exam 2 Narrative: BELOW IS A FOCUSED LOWER EXTREMITY EXAM GENERAL: A&O x 3 VASCULAR: DP/PT pulses nonpalpable. Strong biphasic on handheld doppler. CFT intact and less than 3 seconds to distal digits. Significant edema to left heel DERMATOLOGICAL: Puncture wound to plantar aspect of left heel with extensive erythema enveloping the entire heel and extending proximally up the back of the left leg. No underlying fluctuance. Active drainage coming from the plantar wound. Lateral desquamation and serous weepage. MUSCULOSKELETAL: Tenderness with palpation of left heel NEUROLOGICAL: Neurological sensation to the affected foot and ankle is present through L4-S1 dermatomes with no hyper/hypoesthesias, negative Tinel or Valleix's sign IMAGING: Three-view x-rays of left ankle taken at today's visit were personally interpreted by me which show increased soft tissue density surrounding calcaneus. Retrocalcaneal and infracalcaneal bone spurring noted. No foreign body visualized. No subcutaneous emphysema visualized. Arterial calcifications visualized. Data 03/16/24 17:02 03/16/24 17:02 Micro: Microbiology 03/16/24 17:02 Blood Culture - Preliminary Blood SPECIMEN COLLECTED 03/16/24 16:55 Blood Culture - Preliminary Blood SPECIMEN COLLECTED A&P Assessment and plan (1) Abscess of left foot: (2) Cellulitis of foot, left: (3) Leukocytosis: (4) Type 2 diabetes mellitus: Plan -Left foot cellulitis/abscess -Labs and vitals reviewed -WBC 16.2 -ESR 46 -CRP 143.4 -VSS -Cultures blood cultures pending; wound cultures pending -Abx Vanco/Zosyn/clinda -Diet: Okay for diet -Extensive left heel infection. No subcutaneous emphysema noted on imaging. No crepitus on exam. Patient will need surgical debridement. However, MRI will be most beneficial to evaluate extent of infection and the course of infection, stemming from the plantar foot wound. This will also provide more accurate insight into potential osteomyelitis of calcaneus. Stat MRI with contrast of left ankle is pending. Once MRI is obtained we will proceed with surgical debridement. Likely OR debridement on 03/18/2024. Continue IV antibiotic therapy, broad-spectrum, until this point. -Pain Mgmt: Per admitting team -Weight bearing: Nonweightbearing to left lower extremity -Dressings: Betadine wet-to-dry dressing -Continue current Abx therapy until ID and Sensitivity results -Trend labs -Discharge plan: To be determined -Podiatry will continue to round on patient daily and provide recommendations Coding Level of Care Code Acute Code for [facility] Diagnoses Abscess of left foot L02.612 Cellulitis of foot, left L03.116 Leukocytosis D72.829 Type 2 diabetes mellitus E11.9
--- NOTE | 2024-03-16 19:30 | PHA.VACGOAL ---
Vancomycin Goal - Therapy Day of therpy:: Day []of [] . 1 Actual body weight (kg): 190 lb 6 oz - Data Labs: WBC 16.19 10^3/uL (3.29-11.43) H 03/16/24 17:02 RBC 4.65 10^6/uL (3.85-5.65) 03/16/24 17:02 Hgb 13.30 g/dL (11.27-16.99) 03/16/24 17:02 Hct 39.8 % (37-53) 03/16/24 17:02 MCV 85.6 fl (82-101) 03/16/24 17:02 MCH 28.6 pg (27-33) 03/16/24 17:02 MCHC 33.4 g/dL (30-55) 03/16/24 17:02 RDW 12.7 % (12.1-15.1) 03/16/24 17:02 Sodium 136 mmol/L (136-145) 03/16/24 17:02 Potassium 4.9 mmol/L (3.5-5.1) 03/16/24 17:02 Chloride 96 mmol/L (98-107) L 03/16/24 17:02 Carbon Dioxide 27 mmol/L (22-29) 03/16/24 17:02 Anion Gap 17.9 (5-19) 03/16/24 17:02 BUN 17 mg/dL (8-23) 03/16/24 17:02 Creatinine 1.1 mg/dL (0.7-1.2) 03/16/24 17:02 GFR Calculation 68.1 mL/min (90-130) L 03/16/24 17:02 Treatment plan:: new consult (T 1/2=~12H; 1,250 MG Q12H)
[2024-03-16] MEDS: sodium chloride 0.9% 1,000 ML 75 ML IV (19:34)
[2024-03-16] MEDS: clindamycin 600 MG/50 ML PREMIX 100 MG IV (19:34)
[2024-03-16] MEDS: heparin 5,000 unit/mL INJ 1 mL 5000 UNIT SUBCUT (19:35)
[2024-03-16 20:00] VITALS: BP 146/84; PULSE 99; RESP 19; TEMP 36.4; O2SAT 96
[2024-03-16 20:39] LABS: Glucose Point of Care 157 mg/dL (70-110)
[2024-03-16 21:16] LABS: Estmated Average Glucose 186; Hemoglobin A1C 8.1 % (4.0-6.0)
[2024-03-16] MEDS: HYDROcodone-acetaminophen 5-325 mg Tablet 1 TAB PO (21:17)
[2024-03-16] MEDS: piperacillin-tazobactam 3.375 GM in sodium chloride 0.9% (plus) 50 ML IV (21:18)
[2024-03-16 23:56] VITALS: BP 144/77; PULSE 89; RESP 18; TEMP 36.9; O2SAT 95
[2024-03-17] VITALS (8 sets, daily range): BP systolic 115–150; BP diastolic 69–81; PULSE 75–94; RESP 16–18; TEMP 36.3–36.9; O2SAT 90–98
[2024-03-17] MEDS: iohexol 350 mg/mL 500 mL Btl (per mL) IV (03:05)
[2024-03-17] MEDS: clindamycin 600 MG/50 ML PREMIX 100 MG IV ×3 (03:09→18:34)
[2024-03-17] MEDS: piperacillin-tazobactam 3.375 GM in sodium chloride 0.9% (plus) 50 ML IV ×3 (04:26→20:25)
[2024-03-17 05:10] LABS: Basophils # 0.1 10^3/uL (0.0-0.1); Basophils % 0.5 %; Eosinophils # 0.2 10^3/uL (0.0-0.8); Eosinophils % 1.2 %; Hematocrit 34.6 % (37-53); Lymphocytes # 1.4 10^3/uL (0.8-4.8); Lymphocytes % 10.5 %; Mean Corpuscular HGB Conc 31.8 g/dL (30-55); Mean Corpuscular Hemoglobin 27.6 pg (27-33); Mean Corpuscular Volume 86.7 fl (82-101); Mean Platelet Volume 9.7 fL (7.4-10.4); Monocytes # 0.9 10^3/uL (0.2-0.9); Monocytes % 6.5 %; Neutrophils # 10.77 10^3/uL (1.8-7.7); Neutrophils % 80.4 %; Nucleated Red Blood Cells % 0 %; Platelet Count 385 10^3/cmm (157-399); Red Blood Count 3.99 10^6/uL (3.85-5.65); Red Cell Distribution Width 12.5 % (12.1-15.1); White Blood Count 13.39 10^3/uL (3.29-11.43)
[2024-03-17 05:35] LABS: Anion Gap 16.6 (5-19); Blood Urea Nitrogen 16 mg/dL (8-23); Calcium 8.5 mg/dL (8.5-10.5); Carbon Dioxide 22 mmol/L (22-29); Chloride 99 mmol/L (98-107); Creatinine Clr Calc Pharmacy 108.2744; Glomerular Filtration Rate 98.3 mL/min (90-130); Glucose 169 mg/dL (65-115); Osmolality Calculated 281 mOsm/kg (285-295); Phosphorus 3.8 mg/dL (2.5-4.5); Potassium 4.6 mmol/L (3.5-5.1); Sodium 133 mmol/L (136-145)
[2024-03-17] MEDS: vancomycin 1,250 MG/250 ML PIGGYBACK 200 MG IV ×2 (06:07→17:23)
[2024-03-17 06:32] LABS: Glucose Point of Care 172 mg/dL (70-110)
--- NOTE | 2024-03-17 07:42 | P.PN_ITS ---
Subjective 2 Subjective: Patient seen at bedside this morning. No overnight events. White count trending down with IV antibiotic therapy. Left ankle is still painful. MRI scheduled for 10 AM today. Vitals/I&O/Wt Last Vital Signs Temp 98.5 F 03/17/24 03:21 Pulse 78 03/17/24 03:21 Resp 18 03/17/24 03:21 BP 138/73 03/17/24 03:21 Pulse Ox 97 03/17/24 03:21 O2 Del Method Room Air 03/16/24 19:43 03/16/24 03/17/24 03/17/24 22:59 06:59 14:59 Intake Total 300 / 300 100 / 400 Output Total 550 / 550 600 / 1150 Balance -250 / -250 -500 / -750 Weight last 48 hrs Weight 193 lb 11.2 oz Weight 190 lb 6 oz Weight 192 lb Physical Exam 2 Narrative: BELOW IS A FOCUSED LOWER EXTREMITY EXAM GENERAL: A&O x 3 VASCULAR: DP/PT pulses nonpalpable. Strong biphasic on handheld doppler. CFT intact and less than 3 seconds to distal digits. Significant edema to left heel DERMATOLOGICAL: Puncture wound to plantar aspect of left heel with extensive erythema enveloping the entire heel and extending proximally up the back of the left leg. No underlying fluctuance. Active drainage coming from the plantar wound. Lateral desquamation and serous weepage. MUSCULOSKELETAL: Tenderness with palpation of left heel NEUROLOGICAL: Neurological sensation to the affected foot and ankle is present through L4-S1 dermatomes with no hyper/hypoesthesias, negative Tinel or Valleix's sign IMAGING: Three-view x-rays of left ankle taken at today's visit were personally interpreted by me which show increased soft tissue density surrounding calcaneus. Retrocalcaneal and infracalcaneal bone spurring noted. No foreign body visualized. No subcutaneous emphysema visualized. Arterial calcifications visualized. Urinary Catheter Management: Dixon: Cath Placed During This Visit: yes Reason for Continuing Indwelling Catheter: Other Urinary Catheter Date of Insertion: 03/16/24 Urinary Catheter Time of Insertion: 21:30 Data 03/17/24 04:30 03/17/24 04:30 Micro: Microbiology 03/16/24 17:02 Blood Culture - Preliminary Blood SPECIMEN COLLECTED 03/16/24 16:55 Blood Culture - Preliminary Blood SPECIMEN COLLECTED A&P Assessment and plan (1) Abscess of left foot: (2) Cellulitis of foot, left: (3) Leukocytosis: (4) Type 2 diabetes mellitus: Plan -Left foot cellulitis/abscess -Labs and vitals reviewed -WBC 16.2--> 13.4 -ESR 46 -CRP 143.4 -VSS -Cultures blood cultures pending; wound cultures pending -Abx Vanco/Zosyn/clinda -Diet: N.p.o. at midnight for procedure 03/18/2024 -Extensive left heel infection. No subcutaneous emphysema noted on imaging. No crepitus on exam. Patient will need surgical debridement. However, MRI will be most beneficial to evaluate extent of infection and the course of infection, stemming from the plantar foot wound. This will also provide more accurate insight into potential osteomyelitis of calcaneus. MRI today 03/17/2024 at 10 AM. Plan for surgical debridement of left heel tomorrow a.m. 03/18/2024. Discussed with patient that the extent of the infection may warrant leaving wound open followed by a return to the operating room for delayed primary closure. Patient verbalized understanding to this. -Pain Mgmt: Per admitting team -Weight bearing: Nonweightbearing to left lower extremity -Dressings: Betadine wet-to-dry dressing -Continue current Abx therapy until ID and Sensitivity results -Trend labs -Discharge plan: To be determined -Podiatry will continue to round on patient daily and provide recommendations Attestations 2 Medical Necessity Statement*: Left heel abscess, MRI pending, surgery tomorrow 03/18/2024 Coding Level of Care Code Acute Code for [facility] Diagnoses Abscess of left foot L02.612 Cellulitis of foot, left L03.116 Leukocytosis D72.829 Type 2 diabetes mellitus E11.9
[2024-03-17] MEDS: sennosides-docusate Tablet 2 TAB PO ×2 (08:27→17:26)
[2024-03-17] MEDS: insulin lispro 100 unit/1 mL SUBCUT ×3 (08:27→17:26)
--- NOTE | 2024-03-17 09:16 | PC.PHAR ---
PT HAS RX BOTTLES IN HIS ROOM FOR VERIFICATION. VERBAL VERIFICATION WAS DONE.
[2024-03-17] MEDS: gadobenate dimeglumine 20 mL vial 18 ML IV (10:13)
--- NOTE | 2024-03-17 10:39 | P.PN_ITS ---
Subjective 2 Subjective: No fever overnight MRI pending today Patient going for surgical intervention tomorrow by Dr. Peterson in the morning Vitals/I&O/Wt Last Vital Signs Temp 97.4 F L 03/17/24 07:00 Pulse 75 03/17/24 07:00 Resp 16 03/17/24 07:00 BP 145/75 03/17/24 07:00 Pulse Ox 98 03/17/24 07:00 O2 Del Method Room Air 03/16/24 19:43 03/16/24 03/17/24 03/17/24 22:59 06:59 14:59 Intake Total 300 / 300 100 / 400 1540 / 1540 Output Total 550 / 550 600 / 1150 850 / 850 Balance -250 / -250 -500 / -750 690 / 690 Weight last 48 hrs Weight 87.861 kg Weight 86.353 kg Weight 87.09 kg Physical Exam 2 Narrative: Awake and alert GCS 15 Pleasant cooperative Euvolemic Erythema with ecchymosis around left ankle skin is sloughing off Tender to palpate GCS 15 nonfocal neuroexam S1, S2 currently on room air Urinary Catheter Management: Dixon: Cath Placed During This Visit: yes Reason for Continuing Indwelling Catheter: Other Urinary Catheter Date of Insertion: 03/16/24 Urinary Catheter Time of Insertion: 21:30 Data 03/17/24 04:30 03/17/24 04:30 Micro: Microbiology 03/16/24 17:02 Blood Culture - Preliminary Blood SPECIMEN COLLECTED 03/16/24 16:55 Blood Culture - Preliminary Blood SPECIMEN COLLECTED A&P Assessment and plan (1) Cellulitis: Qualifiers: Site of cellulitis: neck Qualified Code(s): L03.221 - Cellulitis of neck (2) Cellulitis of foot, left: (3) Hypertension: (4) Type 2 diabetes mellitus: Plan Cellulitis, Purulent Currently on clindamycin along vancomycin and Zosyn for toxin suppression Will discontinue clindamycin on Wednesday Going for surgical intervention on Wednesday as well, MRI pending today ESR CRP noted No recent fever No sign of sepsis so far Lactic acid normal Blood sugar goal 140 to 180 mg/dL in the hospital N.p.o. after midnight DVT prophylaxis: SCDs Attestations 2 Medical Necessity Statement*: Most likely patient will stay here till Wednesday Diagnoses Cellulitis L03.221 Site of cellulitis: neck Cellulitis of foot, left L03.116 Hypertension I10 Type 2 diabetes mellitus E11.9
[2024-03-17] MEDS: sodium chloride 0.9% 1,000 ML 75 ML IV (10:48)
[2024-03-17 11:36] LABS: Glucose Point of Care 170 mg/dL (70-110)
[2024-03-17] MEDS: HYDROcodone-acetaminophen 5-325 mg Tablet 1 TAB PO (16:23)
[2024-03-17 17:02] LABS: Glucose Point of Care 147 mg/dL (70-110)
--- NOTE | 2024-03-17 19:00 | MR_ITS ---
WS: [id number] MRI LEFT ANKLE WITHOUT CONTRAST. COMPARISON: CT foot 03/17/2024 Multiplanar, multisequence imaging is performed with and without contrast. MultiHance 18 mL. Abnormal signal throughout a large portion of the calcaneus. Predominantly along the plantar surface of the calcaneus there is increased T2 signal extending over a length of 5.2 cm and transversely by 2 .2 cm. Marrow edema extends to the posterior calcaneus where there is loss of the normal cortex. Ther e is a large amount of soft tissue and fluid in the calcaneal fat pad and extending over the lateral calcaneus. Fluid also extends superiorly along the Achilles tendon. On the postcontrast imaging there is enhancement within majority of the marrow edema. This is consistent with osteomyelitis. Posterior cortical calcaneal defect does not enhance and may represent an area of bone necrosis. The fluid col lection surrounding the calcaneus do not significantly enhance either. Possibility of abscess should still be considered considering the amount of osteomyelitis. There is a small tract extending from th e posterior plantar surface of the foot to the calcaneus. There is a large amount of edema throughout the ankle and foot otherwise. This edema does enhance con sistent with cellulitis. MR/MR ankle LT wo/w con [id number] IMPRESSION: 1. Large area of osteomyelitis involving the calcaneus. Osteomyelitis involves the inferior third of the measuring 5.2 x 2.2 cm. 2. There is a large amount of cellulitis surrounding the ankle and foot. 3. Fluid collections along the calcaneal fat pad and over the lateral calcaneu s do not significantly enhance but with the extent of disease abscess should be considered also. The fluid extends along the distal Achilles tendon sheath. 4. Suspected necrotic osseous fragment in the posterior calcaneus.
[2024-03-17 20:39] LABS: Glucose Point of Care 195 mg/dL (70-110)
[2024-03-18] VITALS (17 sets, daily range): BP systolic 124–169; BP diastolic 73–99; PULSE 76–100; RESP 16–19; TEMP 36.2–36.8; O2SAT 90–100
[2024-03-18] MEDS: clindamycin 600 MG/50 ML PREMIX 100 MG IV (02:39)
[2024-03-18] MEDS: piperacillin-tazobactam 3.375 GM in sodium chloride 0.9% (plus) 50 ML IV ×3 (04:26→20:04)
[2024-03-18 05:13] LABS: Basophils # 0.1 10^3/uL (0.0-0.1); Basophils % 0.5 %; Eosinophils # 0.3 10^3/uL (0.0-0.8); Eosinophils % 2.5 %; Hematocrit 37.2 % (37-53); Lymphocytes # 1.2 10^3/uL (0.8-4.8); Lymphocytes % 11.5 %; Mean Corpuscular HGB Conc 32.8 g/dL (30-55); Mean Corpuscular Hemoglobin 28.2 pg (27-33); Mean Corpuscular Volume 85.9 fl (82-101); Mean Platelet Volume 9.3 fL (7.4-10.4); Monocytes # 0.6 10^3/uL (0.2-0.9); Neutrophils # 8.14 10^3/uL (1.8-7.7); Neutrophils % 78.8 %; Nucleated Red Blood Cells % 0 %; Platelet Count 401 10^3/cmm (157-399); Red Blood Count 4.33 10^6/uL (3.85-5.65); Red Cell Distribution Width 12.4 % (12.1-15.1); White Blood Count 10.33 10^3/uL (3.29-11.43)
[2024-03-18 05:33] LABS: Vancomycin Trough 11.3 ug/mL (10-15)
[2024-03-18 05:34] LABS: Anion Gap 16.4 (5-19); Blood Urea Nitrogen 9 mg/dL (8-23); Calcium 8.9 mg/dL (8.5-10.5); Carbon Dioxide 23 mmol/L (22-29); Chloride 98 mmol/L (98-107); Creatinine Clr Calc Pharmacy 124.1121; Glomerular Filtration Rate 114.6 mL/min (90-130); Glucose 201 mg/dL (65-115); Osmolality Calculated 280 mOsm/kg (285-295); Potassium 4.4 mmol/L (3.5-5.1); Sodium 133 mmol/L (136-145)
[2024-03-18 06:20] LABS: Glucose Point of Care 184 mg/dL (70-110)
[2024-03-18] MEDS: vancomycin 1,250 MG/250 ML PIGGYBACK 200 MG IV (06:20)
--- NOTE | 2024-03-18 07:58 | PC.NURSE ---
pt to pre op at approx. 0730
--- NOTE | 2024-03-18 08:00 | P.ANESASSM_ITS ---
Pre-Anesthetic Assessment Height/Weight: Height 1.78 m Weight 88.451 kg Temp Pulse Resp BP Pulse Ox O2 Del Method 98.0 F 78 18 146/83 95 Room Air 03/18/24 07:37 03/18/24 07:37 03/18/24 07:37 03/18/24 07:37 03/18/24 07:37 03/18/24 07:37 Operation Date: 03/18/24 09:10 Proposed Procedures p Left foot Incision And Drainage(Left) - Andrew Crews DPM Was Beta Cheri taken within 24 hours: N/A Last intake: Intake Last Liquid Date 03/17/24 Last Solid Date 03/17/24 Social No alcohol and No tobacco Airway Submandibular: within normal limits Cervical ROM: within normal limits Mallampati: Class II Pulmonary None reported CV/HEM None reported Metabolic Diabetes Mellitus Anesthetic Plan ASA status: 2E Anesthesia: General Medications/Allergies Home Medications Medication Instructions Recorded Confirmed Last Taken Type acetaminophen 500 mg tablet 1,000 mg PO Q6H PRN Pain 03/17/23 03/17/24 Unknown History blood-glucose meter (Glucocard 01 #1 ea 03/25/23 03/17/24 Unknown Rx Meter kit) lancets #100 ea 03/25/23 03/17/24 Unknown Rx pen needle, diabetic 32 gauge x #50 ea 03/25/23 03/17/24 Unknown Rx 1/4 (BD Ultra-Fine Micro Pen Needle) amoxicillin 875 mg-potassium 1 tab PO Q12H 03/16/24 03/17/24 03/16/24 History clavulanate 125 mg tablet metformin 1,000 mg tablet 1,000 mg PO BID 03/16/24 03/17/24 Unknown History metformin 500 mg tablet 500 mg PO BID 03/16/24 03/17/24 03/16/24 History doxycycline hyclate 100 mg capsule 100 mg PO BID 03/17/24 03/17/24 03/16/24 History Allergies Allergy/AdvReac Type Severity Reaction Status Date / Time No Known Allergies Allergy Verified 03/16/24 15:00 Current Medications Generic Name Dose Route Start Last Admin Trade Name Freq PRN Reason Stop Dose Admin Hydrocodone Bitart/Acetaminophen 1 tab 03/16/24 18:40 03/17/24 16:23 Hydrocodone-Acetaminophen 5-325 Mg Tablet PO 1 tab Q4H PRN Administration MODERATE PAIN Clindamycin HCl/Dextrose 600 mg in 50 mls @ 100 mls/hr 03/16/24 18:45 03/18/24 03:40 Cleocin IV 03/18/24 09:00 Infused Q8H JAQUELINE Infusion Protocol Piperacillin Sod/Tazobactam 50 mls @ 12.5 mls/hr 03/16/24 19:30 03/18/24 04:26 Sod 3.375 gm/ Sodium Chloride IV 12.5 mls/hr Q8H JAQUELINE Administration Protocol As Directed Vancomycin HCl 1,250 mg in 250 mls @ 200 mls/hr 03/17/24 06:15 03/18/24 07:39 Vancocin IV Infused Q12H JAQUELINE Infusion Insulin Human Lispro 0 unit 03/17/24 08:00 03/17/24 17:26 Insulin Lispro 100 Unit/1 Ml SUBCUT 4 unit TIDWM JAQUELINE Administration Protocol Senna/Docusate Sodium 2 tab 03/17/24 09:00 03/17/24 17:26 Sennosides-Docusate Tablet PO 2 tab BID JAQUELINE Administration PFSH Anesthesia Medical History Hypertension Newly diagnosed diabetes Dyslipidemia (high LDL; low HDL) Umbilical hernia Surgical History History of hernia repair Social History Smoking and tobacco/nicotine status: unknown if used tobacco/nicotine Alcohol intake: never Substance/Drug Use: never Data Anesthesia 03/18/24 05:07 03/18/24 05:07 Short CBC 03/16/24 03/17/24 03/18/24 Range/Units 17:02 04:30 05:07 WBC 16.19 H 13.39 H 10.33 (3.29-11.43) 10^3/uL Hgb 13.30 11.00 L 12.20 (11.27-16.99) g/dL Hct 39.8 34.6 L 37.2 (37-53) % MCV 85.6 86.7 85.9 (82-101) fl Plt Count 444 H 385 401 H (157-399) 10^3/cmm Neut % (Auto) 84.5 80.4 78.8 % Neut # (Auto) 13.67 H 10.77 H 8.14 H (1.8-7.7) 10^3/uL BMP 03/16/24 03/17/24 03/18/24 17:02 04:30 05:07 Sodium 136 133 L 133 L Potassium 4.9 4.6 4.4 Chloride 96 L 99 98 Carbon Dioxide 27 22 23 BUN 17 16 9 Creatinine 1.1 0.8 0.7 Glucose 137 H 169 H 201 H Calcium 9.9 8.5 8.9 Liver Function 03/16/24 Range/Units 17:02 Total Bilirubin 0.4 (0.15-1.2) mg/dL AST 18 (0-40) U/L ALT 19 (0-41) U/L Alkaline Phosphatase 86 (40-130) U/L Albumin 4.1 (3.5-5.2) g/dL Coags 03/16/24 17:02 ESR 46 H C-Reactive Protein 143.4 H Microbiology 03/16/24 17:02 Blood Culture - Preliminary Blood NEGATIVE TO DATE 03/16/24 16:55 Blood Culture - Preliminary Blood NEGATIVE TO DATE Cardiac Studies: 2 No Data to Display
--- NOTE | 2024-03-18 09:20 | W.PM.OPSUD ---
Surgery/Procedure H&P Update DATE OF PROCEDURE: March 18, 2024 DATE H&P PERFORMED: 03/16/24 PLANNED PROCEDURE: Operation Date: 03/18/24 09:10 Proposed Procedures p Left foot Incision And Drainage(Left) - Andrew Crews DPM
[2024-03-18] MEDS: BUPivacaine 0.5% INJ 30 mL INJECTION (10:20)
--- NOTE | 2024-03-18 10:35 | PC.NURSE ---
Wound Vac placed on patient via [facility]. Confirmation code [id number]
--- NOTE | 2024-03-18 10:54 | W.PM.BPON ---
Date of procedure: 03/18/2024 Surgeon name: Luisana WalshPAlisha Coremaker Experimental(s) name(s): Darryl Procedure(s) performed: Incision drainage left heel Description of findings: Large abscess, 10 cc of purulence enveloping Achilles tendon and along the retromalleolar area of the lateral malleolus. Also was to track plantarly towards the trent pedis Estimated blood loss: 15 cc Tourniquet time: No tourniquet used Specimen(s) removed: Cultures aerobic and anaerobic Post-operative diagnosis: Abscess left foot, osteomyelitis
--- NOTE | 2024-03-18 10:56 | P.OP_ITS ---
Operative Report Date of procedure: March 18, 2024 Pre-op diagnosis: Left foot abscess, osteomyelitis Post-op diagnosis: Same Post-op findings: Large left foot abscess to lateral left calcaneus enveloping the Achilles tendon and retrocalcaneal bursal area. Purulence extended along plantar aspect of foot towards the trent pedis on the medial side. Abscess also tracked proximally beh ind the peroneal tendon sheath in the retromalleolar area Procedure done: Left foot incision and drainage CPT 34422 Specimens removed/disposition: Cultures aerobic and anaerobic sent to micro for ID and sensitivity Surgeon: Andrew Crews DPM Estimated blood loss: 15 cc No tourniquet used Complications: None Findings: See above Procedure: Patient is a 59-year-old male that has a history of left foot abscess. MRI confirmed abscess to left foot with osteomyelitis of calcaneus present. Extent of infection necessitates surgical intervention. A lengthy discussion regarding the procedure, including risks and complications has been had with the patient and is noted in the recent clinic note. Written and verbal consent have been obtained. All patient questions have been answered to the patient?s satisfaction. No written or verbal guarantees have been given or implied. The patient has been NPO since midnight. The history has been reviewed and the history and physical is current. The signed consent was confirmed and placed in the patient chart. Patient imaging has been reviewed and is consistent with the diagnosis. Under mild sedation, the patient was brought into the operating room and placed on the table in the prone position. Patient is receiving antibiotics [id number] on the floor. No additional antibiotics were administered for prophylaxis. General sedation was then performed by the anesthesiateam. After Betadine paint and scrub prep the following procedure was then performed. Attention was directed to the plantar aspect of the left heel where a puncture wound was noted centrally. This was probed with a [place] and noted to track laterally along the lateral aspect of the calcaneus up into the retromalleolar area of the left ankle. A 15 blade was used to incise over the inserted [place] along the course of the sinus tract. Blunt dissection was carried out with hemostat down to subcutaneous the superficial fascia and deep fascia to the level of calcaneus. Significant amount of purulence was noted in this area approximately 10 cc. Cultures aerobic and anaerobic were taken at this point and sent to micro for ID and sensitivity. A rongeur was used to remove devitalized tissue. Blunt dissection was carried out to explore the extent of the abscess which was noted to enveloped the Achilles tendon, retrocalcaneal bursal space posteriorly, retromalleolar area along posterior border of peroneal tendon sheath superiorly and tracking inferiorly along the plantar aspect of the foot surrounding the proximal attachment of the plantar fascia and wrapping around medially towards the trent pedis. Incision was extended along the entire course of the abscess. Again, rongeur was used to remove devitalized tissue. Lateral calcaneal wall showed evidence of inflammation and discoloration conc erning for osteomyelitis. Integrity of calcaneus appeared within normal range despite infection. After removal of devitalized tissue, the site was irrigated with copious amounts sterile saline, 3 L through pulse lavage. After irrigation, hemostasis was achieved using electrocautery. A wound VAC was then applied in standard fashion at 125 mmHg continuous before the surgical site was dressed with 4 x 4 gauze, Kerlix and Anastacio. The patient tolerated the procedure and anesthesia well and without complication. The patient was transported from the operating room to the recovery room with vital signs stable and vascular status intact to all digits of the left foot. Thepatient was instructed to remain nonweightbearing to the operative extremity, to keep surgical dressing clean, dry and intact. The patient will be transferred back to the floor once anesthesia criteria is met. I will continue to round on and follow the patient in the inpatientsetting and provide recommendations to stabilize the patient for discharge. The extent of the infection necessitated wound VAC application. Patient will also need to return to the operating room in the coming days for delayed primary closure. Given the findings of calcaneal involvement on MRI as well as intraoperatively recommend PICC line placement with 6 to 8 weeks IV antibiotics. I will discuss this further with primary admitting team. For now, continue nonweightbearing to operative extremity. Elevation of extremity and broad- spectrum antibiotics until cultures result.
--- NOTE | 2024-03-18 11:00 | ANE.PACU2 ---
Inpatient post-anesthesia follow up: Airway intact: Yes Vital signs: Temperature 97.1 F Pulse Rate 100 Respiratory Rate 18 Blood Pressure 168/82 Pulse Oximetry 97 Oxygen Delivery Me thod Simple Mask Oxygen Flow Rate 8 Fraction of Inspir ed Oxygen Hydration adequate: Yes Nausea and vomiting: No Pain level: adequate pain control Mental status: Baseline
--- NOTE | 2024-03-18 11:16 | P.PN_ITS ---
Subjective 2 Subjective: seen today no acute events overnight waking up from anesthesia appears comfortable Vitals/I&O/Wt Last Vital Signs Temp 97.1 F L 03/18/24 10:56 Pulse 99 03/18/24 11:01 Resp 18 03/18/24 11:01 BP 140/98 03/18/24 11:01 Pulse Ox 100 03/18/24 11:01 O2 Del Method Room Air 03/18/24 11:01 O2 Flow Rate 8 03/18/24 10:58 03/17/24 03/18/24 03/18/24 22:59 06:59 14:59 Intake Total 1280 / 3180 100 / 3280 250 / 250 Output Total 625 / 1475 1150 / 2625 1005 / 1005 Balance 655 / 1705 -1050 / 655 -755 / -755 Weight last 48 hrs Weight 88.451 kg Weight 87.861 kg Weight 86.353 kg Weight 87.09 kg Physical Exam 2 Narrative: Awake and alert Pleasant cooperative Euvolemic foot wrapped in bandage lungs clear to auscultation on 2L NC at this time, seen in PACU Urinary Catheter Management: Dixon: Cath Placed During This Visit: yes Reason for Continuing Indwelling Catheter: Other Urinary Catheter Date of Insertion: 03/16/24 Urinary Catheter Time of Insertion: 21:30 Data 03/18/24 05:07 03/18/24 05:07 Micro: Microbiology 03/16/24 17:02 Blood Culture - Preliminary Blood NEGATIVE TO DATE 03/16/24 16:55 Blood Culture - Preliminary Blood NEGATIVE TO DATE A&P Assessment and plan (1) Cellulitis: Qualifiers: Site of cellulitis: neck Qualified Code(s): L03.221 - Cellulitis of neck (2) Cellulitis of foot, left: (3) Hypertension: (4) Type 2 diabetes mellitus: Plan #Purulent cellulitis #Left calcaneal osteomyelitis #HTN #Type 2 DM #DLD #Mild Hyponatremia - Underwent left foot debridement today, intraoperative cultures obtained, will need to go back to OR for delayed closure in next 48 hours. Discussed at length with Dr. Crews. - Continue Vancomycin and Zosyn. Clindamycin dc as 48 hours completed for toxin suppresion. - MRI completed: 1. Large area of osteomyelitis involving the calcaneus. Osteomyelitis involves the inferior third of the measuring 5.2 x 2.2 cm. 2. There is a large amount of cellulitis surrounding the ankle and foot. 3. Fluid collections along the calcaneal fat pad and over the lateral calcaneus do not significantly enhance but with the extent of disease abscess should be considered also. The fluid extends along the distal Achilles tendon sheath. 4. Suspected necrotic osseous fragment in the posterior calcaneus. ESR CRP noted No recent fever No sign of sepsis so far Lactic acid normal Blood sugar goal 140 to 180 mg/dL in the hospital Will need strict blood glucose control. Will need PICC placement and IV abx x 6 weeks. Will plan for PICC after culture results Dr. Crews consulted. Appreciate recs. DVT prophylaxis: SCDs Attestations 2 Medical Necessity Statement*: requires continued hospitalization for management of left calcaneal osteomyelitis Diagnoses Cellulitis L03.221 Site of cellulitis: neck Cellulitis of foot, left L03.116 Hypertension I10 Type 2 diabetes mellitus E11.9
[2024-03-18 17:13] LABS: Glucose Point of Care 209 mg/dL (70-110)
[2024-03-18] MEDS: morphine IR 15 mg Tablet PO (17:37)
[2024-03-18] MEDS: ondansetron 2 mg/ML SDV 2 mL 4 MG IVP (17:48)
[2024-03-18] MEDS: vancomycin 1,250 MG/250 ML PIGGYBACK 250 MG IV (17:51)
--- NOTE | 2024-03-18 18:11 | ECG_ITS ---
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
[2024-03-18 18:38] LABS: Troponin(5th) Baseline 12 ng/L (0-15)
--- NOTE | 2024-03-18 19:45 | ECG_ITS ---
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
[2024-03-18 20:36] LABS: Troponin 5 2HR 12.02 ng/L (0-15); Troponin 5 2HR Delta 0.02 ABS# (0-10)
[2024-03-18 20:42] LABS: Glucose Point of Care 177 mg/dL (70-110)
--- NOTE | 2024-03-18 23:45 | ECG_ITS ---
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 Measurements Intervals [place] Rate: 83 P: 58 UT: 186 QRS: 19 QRSD: 82 T: 46 QT: 360 QTc: 425 Interpretive Statements SINUS RHYTHM NONSPECIFIC T-WAVE ABNORMALITY Compared to ECG 03/18/2024 20:21:28 No significant changes Electronically Signed On 03-19-2024 20:11:01 CDT by Isreal Myers M.D. [id number]
[2024-03-19 00:53] LABS: Basophils % 0.2 %; Eosinophils % 0.1 %; Hematocrit 36.6 % (37-53); Lymphocytes # 1.2 10^3/uL (0.8-4.8); Mean Corpuscular HGB Conc 32.8 g/dL (30-55); Mean Corpuscular Hemoglobin 28.1 pg (27-33); Mean Corpuscular Volume 85.7 fl (82-101); Mean Platelet Volume 9.3 fL (7.4-10.4); Monocytes # 0.9 10^3/uL (0.2-0.9); Neutrophils # 14.87 10^3/uL (1.8-7.7); Neutrophils % 87.1 %; Nucleated Red Blood Cells % 0 %; Platelet Count 430 10^3/cmm (157-399); Red Blood Count 4.27 10^6/uL (3.85-5.65); Red Cell Distribution Width 12.4 % (12.1-15.1); White Blood Count 17.09 10^3/uL (3.29-11.43)
[2024-03-19 01:11] LABS: Troponin 5 6HR 14.01 ng/L (0-15); Troponin 5 6HR Delta 2.01 ng/L (0-12)
[2024-03-19 01:16] LABS: Alanine Aminotransferase 17 U/L (0-41); Albumin Level 3.5 g/dL (3.5-5.2); Alkaline Phosphatase 61 U/L (40-130); Anion Gap 16.3 (5-19); Aspartate Amino Transferase 16 U/L (0-40); Blood Urea Nitrogen 10 mg/dL (8-23); Calcium 8.5 mg/dL (8.5-10.5); Carbon Dioxide 24 mmol/L (22-29); Chloride 98 mmol/L (98-107); Creatinine Clr Calc Pharmacy 108.5981; Globulin 3.3 g/dL (1.3-4.6); Glomerular Filtration Rate 98.3 mL/min (90-130); Glucose 158 mg/dL (65-115); Osmolality Calculated 280 mOsm/kg (285-295); Potassium 4.3 mmol/L (3.5-5.1); Sodium 134 mmol/L (136-145); Total Bilirubin 0.4 mg/dL (0.15-1.2); Total Protein 6.8 g/dL (6.6-8.7)
[2024-03-19 04:00] VITALS: BP 131/73; PULSE 71; RESP 18; TEMP 36.7; O2SAT 93
[2024-03-19] MEDS: piperacillin-tazobactam 3.375 GM in sodium chloride 0.9% (plus) 50 ML IV ×3 (04:04→20:52)
[2024-03-19] MEDS: vancomycin 1,250 MG/250 ML PIGGYBACK 200 MG IV ×2 (05:21→19:21)
[2024-03-19 06:20] LABS: Glucose Point of Care 149 mg/dL (70-110)
[2024-03-19 07:15] VITALS: BP 131/72; PULSE 76; RESP 17; TEMP 36.6; O2SAT 95
[2024-03-19] MEDS: insulin lispro 100 unit/1 mL SUBCUT ×3 (08:29→17:45)
--- NOTE | 2024-03-19 08:29 | PM.PN ---
Subjective Subjective: Patient is doing well eating breakfast Patient stating that yesterday he had2 episode of nausea, no chest pain, troponins were unremarkable this happened after he came back from surgery Vitals/I&O/Wt Last Vital Signs Temp 97.8 F 03/19/24 07:15 Pulse 76 03/19/24 07:15 Resp 17 03/19/24 07:15 BP 131/72 03/19/24 07:15 Pulse Ox 95 03/19/24 07:15 O2 Del Method Room Air 03/19/24 07:15 O2 Flow Rate 8 03/18/24 10:58 03/18/24 03/19/24 03/19/24 22:59 06:59 14:59 Intake Total 660 / 960 316.042 / 1276.042 Output Total 850 / 1855 525 / 2380 Balance -190 / -895 -208.958 / -1103.958 Weight last 48 hrs Weight 85.774 kg Weight 88.451 kg Physical Exam Narrative: Euvolemic No active chest pain Eating breakfast No active nausea vomiting S1, S2 Abdomen soft Left foot covered with dressing No sign of vascular ischemia tip of the toes are not discolored GCS 15 [facility] cooperative family at the bedside Urinary Catheter Management: Dixon: Cath Placed During This Visit: yes Reason for Continuing Indwelling Catheter: Other Urinary Catheter Date of Insertion: 03/16/24 Urinary Catheter Time of Insertion: 21:30 Data 03/19/24 00:45 03/19/24 00:45 Micro: Microbiology 03/18/24 10:18 Gram Stain - Final Other Source A&P Assessment and plan (1) Type 2 diabetes mellitus: (2) Leukocytosis: (3) Cellulitis: Qualifiers: Site of cellulitis: neck Qualified Code(s): L03.221 - Cellulitis of neck (4) Neck abscess: (5) Elevated lactic acid level: (6) Hypertension: Plan Patient most likely will need a PICC line and 6 weeks IV antibiotics for osteomyelitis Will follow-up with Dr. Crews for second washout stage procedure I will let dietary changes dressing No sign of vascular ischemia Pain well-managed No active chest pain Troponin unremarkable Normotensive Well on room air Patient had questions regarding weightbearing He is willing to use crutches and a wheelchair Full code Consistent carb diet Continue IV antibiotics Clindamycin has been discontinued Attestations Medical Necessity Statement*: Added heparin for DVT prophylaxis Diagnoses Type 2 diabetes mellitus E11.9 Leukocytosis D72.829 Cellulitis L03.221 Site of cellulitis: neck Neck abscess L02.11 Elevated lactic acid level R79.89 Hypertension I10
[2024-03-19] MEDS: sennosides-docusate Tablet 2 TAB PO ×2 (08:30→17:42)
--- NOTE | 2024-03-19 09:40 | PM.PN ---
Subjective Subjective: Patient seen at bedside this morning. Resting comfortably. Pain is well-controlled. No overnight events. Patient did experience a couple bouts of nausea yesterday after surgery. This has since resolved. Vitals/I&O/Wt Last Vital Signs Temp 97.8 F 03/19/24 07:15 Pulse 76 03/19/24 07:15 Resp 17 03/19/24 07:15 BP 131/72 03/19/24 07:15 Pulse Ox 95 03/19/24 07:15 O2 Del Method Room Air 03/19/24 07:15 O2 Flow Rate 8 03/18/24 10:58 03/18/24 03/19/24 03/19/24 22:59 06:59 14:59 Intake Total 660 / 960 316.042 / 1276.042 360 / 360 Output Total 850 / 1855 525 / 2380 Balance -190 / -895 -208.958 / -1103.958 360 / 360 Weight last 48 hrs Weight 189 lb 1.6 oz Weight 195 lb Physical Exam Narrative: BELOW IS A FOCUSED LOWER EXTREMITY EXAM GENERAL: A&O x 3 VASCULAR: DP/PT pulses nonpalpable. Strong biphasic on handheld doppler. CFT intact and less than 3 seconds to distal digits. Significant edema to left heel DERMATOLOGICAL: Incision dressed with dry sterile dressing. No strikethrough noted. Wound VAC intact with appropriate seal maintaining 125 mmHg MUSCULOSKELETAL: Tenderness with palpation of left heel NEUROLOGICAL: Neurological sensation to the affected foot and ankle is present through L4-S1 dermatomes with no hyper/hypoesthesias, negative Tinel or Valleix's sign IMAGING: Three-view x-rays of left ankle taken at today's visit were personally interpreted by me which show increased soft tissue density surrounding calcaneus. Retrocalcaneal and infracalcaneal bone spurring noted. No foreign body visualized. No subcutaneous emphysema visualized. Arterial calcifications visualized. Urinary Catheter Management: Dixon: Cath Placed During This Visit: yes Reason for Continuing Indwelling Catheter: Other Urinary Catheter Date of Insertion: 03/16/24 Urinary Catheter Time of Insertion: 21:30 Data 03/19/24 00:45 03/19/24 00:45 Micro: Microbiology 03/18/24 10:18 Gram Stain - Final Other Source A&P Assessment and plan (1) Abscess of left foot: (2) Cellulitis of foot, left: (3) Leukocytosis: (4) Type 2 diabetes mellitus: Plan -Left foot cellulitis/abscess -Labs and vitals reviewed -WBC 16.2--> 13.4--> 17.09 -ESR 46 -CRP 143.4 -VSS -Cultures blood cultures pending; wound cultures pending -Abx Vanco/Zosyn/clinda -Diet: Okay for diet -Status post left foot incision and drainage with wound VAC application. Extensive abscess visualized intraoperatively. Abscess envelop calcaneus, Achilles, retrocalcaneal bursa, plantar fascia attachment to calcaneus. Given the extent of the infection and findings on MRI, recommend PICC line placement and long-term IV antibiotic therapy. Patient will need to return to the operating room in the coming days for repeat washout and possible delayed primary closure. -Pain Mgmt: Per admitting team -Weight bearing: Nonweightbearing to left lower extremity while inpatient. -Dressings: Leave surgical dressing clean, dry, intact. Notify Dr. Crews if wound VAC seal is broken -Continue current Abx therapy until ID and Sensitivity results. Preliminary wound cultures taken in outpatient setting show coag positive Staph aureus -Trend labs -Discharge plan: To be determined. Patient will need PICC line placement and arrangement with primary care or infectious disease provider for PICC line management for long-term IV antibiotic therapy patient will need crutches/wheelchair to maintain nonweightbearing status once discharged from the hospital. -Podiatry will continue to round on patient daily and provide recommendations Attestations Medical Necessity Statement*: See hospitalist note Coding Level of Care Code Acute Code for [facility] Diagnoses Abscess of left foot L02.612 Cellulitis of foot, left L03.116 Leukocytosis D72.829 Type 2 diabetes mellitus E11.9
[2024-03-19 09:49] VITALS: PULSE 81; RESP 18; O2SAT 97
[2024-03-19] MEDS: heparin 5,000 unit/mL INJ 1 mL 5000 UNIT SUBCUT ×2 (10:44→20:06)
[2024-03-19 11:40] LABS: Glucose Point of Care 165 mg/dL (70-110)
[2024-03-19 13:30] VITALS: BP 130/71; PULSE 73; RESP 18; TEMP 36.5; O2SAT 94
[2024-03-19 16:04] VITALS: BP 130/73; PULSE 76; RESP 18; TEMP 36.5; O2SAT 95
[2024-03-19 17:10] LABS: Glucose Point of Care 168 mg/dL (70-110)
[2024-03-19 17:42] LABS: Vancomycin Trough 13.8 ug/mL (10-15)
[2024-03-19 20:12] VITALS: BP 145/82; PULSE 74; RESP 19; TEMP 36.8; O2SAT 95
[2024-03-19 20:34] LABS: Glucose Point of Care 124 mg/dL (70-110)
[2024-03-20] VITALS (7 sets, daily range): BP systolic 126–147; BP diastolic 70–83; PULSE 71–76; RESP 16–18; TEMP 36.4–36.8; O2SAT 92–98
[2024-03-20] MEDS: HYDROcodone-acetaminophen 5-325 mg Tablet 1 TAB PO (00:19)
[2024-03-20] MEDS: piperacillin-tazobactam 3.375 GM in sodium chloride 0.9% (plus) 50 ML IV ×3 (04:04→21:14)
[2024-03-20 04:31] LABS: Basophils # 0.1 10^3/uL (0.0-0.1); Basophils % 0.6 %; Eosinophils # 0.3 10^3/uL (0.0-0.8); Eosinophils % 2.7 %; Hematocrit 37.2 % (37-53); Lymphocytes # 1.7 10^3/uL (0.8-4.8); Lymphocytes % 16.4 %; Mean Corpuscular HGB Conc 32.3 g/dL (30-55); Mean Corpuscular Hemoglobin 28.1 pg (27-33); Mean Corpuscular Volume 87.1 fl (82-101); Mean Platelet Volume 9.6 fL (7.4-10.4); Monocytes # 0.7 10^3/uL (0.2-0.9); Monocytes % 6.3 %; Neutrophils # 7.54 10^3/uL (1.8-7.7); Neutrophils % 72.9 %; Nucleated Red Blood Cells % 0 %; Platelet Count 439 10^3/cmm (157-399); Red Blood Count 4.27 10^6/uL (3.85-5.65); Red Cell Distribution Width 12.6 % (12.1-15.1); White Blood Count 10.34 10^3/uL (3.29-11.43)
[2024-03-20 04:46] LABS: Anion Gap 15.6 (5-19); Blood Urea Nitrogen 14 mg/dL (8-23); Carbon Dioxide 26 mmol/L (22-29); Chloride 97 mmol/L (98-107); Creatinine Clr Calc Pharmacy 107.1295; Glomerular Filtration Rate 98.3 mL/min (90-130); Glucose 147 mg/dL (65-115); Osmolality Calculated 281 mOsm/kg (285-295); Potassium 4.6 mmol/L (3.5-5.1); Sodium 134 mmol/L (136-145)
[2024-03-20] MEDS: vancomycin 1,250 MG/250 ML PIGGYBACK 200 MG IV ×2 (05:21→17:35)
[2024-03-20 06:29] LABS: Glucose Point of Care 150 mg/dL (70-110)
--- NOTE | 2024-03-20 07:57 | P.PN_ITS ---
Subjective 2 Subjective: Patient seen at bedside this morning. Eating breakfast, comfortable. Denies any pain. No overnight events. PICC line to be placed today at 10 AM. Vitals/I&O/Wt Last Vital Signs Temp 98.1 F 03/20/24 05:00 Pulse 71 03/20/24 05:00 Resp 17 03/20/24 05:00 BP 128/70 03/20/24 05:00 Pulse Ox 95 03/20/24 05:00 O2 Del Method Room Air 03/20/24 05:00 O2 Flow Rate 8 03/18/24 10:58 03/19/24 03/20/24 03/20/24 22:59 06:59 14:59 Intake Total 780 / 1653.958 316.667 / 1970.625 Output Total 1999 2400 / 4400 Balance -1220 / -346.042 -2083.333 / -2429.375 Weight last 48 hrs Weight 191 lb 11.2 oz Weight 189 lb 1.6 oz Physical Exam 2 Narrative: BELOW IS A FOCUSED LOWER EXTREMITY EXAM GENERAL: A&O x 3 VASCULAR: DP/PT pulses nonpalpable. Strong biphasic on handheld doppler. CFT intact and less than 3 seconds to distal digits. Significant edema to left heel DERMATOLOGICAL: Incision dressed with dry sterile dressing. No strikethrough noted. Wound VAC intact with appropriate seal maintaining 125 mmHg MUSCULOSKELETAL: Tenderness with palpation of left heel NEUROLOGICAL: Neurological sensation to the affected foot and ankle is present through L4-S1 dermatomes with no hyper/hypoesthesias, negative Tinel or Valleix's sign IMAGING: Three-view x-rays of left ankle taken at today's visit were personally interpreted by me which show increased soft tissue density surrounding calcaneus. Retrocalcaneal and infracalcaneal bone spurring noted. No foreign body visualized. No subcutaneous emphysema visualized. Arterial calcifications visualized. Urinary Catheter Management: Dixon: Cath Placed During This Visit: yes Reason for Continuing Indwelling Catheter: Other Urinary Catheter Date of Insertion: 03/16/24 Urinary Catheter Time of Insertion: 21:30 Data 03/20/24 03:15 03/20/24 03:15 Micro: Microbiology 03/18/24 10:18 Anaerobic Culture - Preliminary Foot - #1 03/18/24 10:18 Gram Stain - Final Other Source Abscess Culture - Preliminary A&P Assessment and plan (1) Abscess of left foot: (2) Cellulitis of foot, left: (3) Leukocytosis: (4) Type 2 diabetes mellitus: Plan -Left foot cellulitis/abscess -Labs and vitals reviewed -WBC 16.2--> 13.4--> 17.09--> 10.3 -ESR 46 -CRP 143.4 -VSS -Cultures: Wound culture shows MSSA -Abx Vanco/Zosyn -Diet: Okay for diet -Status post left foot incision and drainage with wound VAC application. Extensive abscess visualized intraoperatively. Abscess envelop calcaneus, Achilles, retrocalcaneal bursa, plantar fascia attachment to calcaneus. Given the extent of the infection and findings on MRI, recommend PICC line placement and long-term IV antibiotic therapy. Patient will need to return to the operating room in the coming days for repeat washout and possible delayed primary closure. Plan for PICC line placement today. I will check OR availability for washout and delayed primary closure for tomorrow 03/21/2024 -Pain Mgmt: Per admitting team -Weight bearing: Nonweightbearing to left lower extremity while inpatient. -Dressings: Leave surgical dressing clean, dry, intact. Notify Dr. Crews if wound VAC seal is broken -Continue current Abx therapy until ID and Sensitivity results. Wound culture shows MSSA -Trend labs -Discharge plan: To be determined. Patient will need PICC line placement and arrangement with primary care or infectious disease provider for PICC line management for long-term IV antibiotic therapy patient will need crutches/wheelchair to maintain nonweightbearing status once discharged from the hospital. -Podiatry will continue to round on patient daily and provide recommendations Attestations 2 Medical Necessity Statement*: See hospitalist note Coding Level of Care Code Acute Code for [facility] Diagnoses Abscess of left foot L02.612 Cellulitis of foot, left L03.116 Leukocytosis D72.829 Type 2 diabetes mellitus E11.9
--- NOTE | 2024-03-20 08:20 | XRR_ITS ---
PROCEDURE INFORMATION: Exam: XR Chest Exam date and time: 03/20/2024 9:00 AM Age: 59 years old Clinical indication: Device placement; Picc; Additional info: Post picc insertion TECHNIQUE: Imaging protocol: Radiologic exam of the chest. Views: 1 view. COMPARISON: CT neck w con* [id number] 07/31/2023 10:17 AM FINDINGS: Tubes, catheters and devices: A right PICC line is noted with its tip in the right atrium. This could be retracted 2.5 cm for positioning at the cavoatrial junction. Lungs: Unremarkable. No consolidation. Pleural spaces: Unremarkable. No pleural effusion. No pneumothorax. Heart/Mediastinum: The heart size is within normal limits.. Bones/joints: Unremarkable. XR/XR chest 1V portable [id number] IMPRESSION: Placement of a right PICC line with its tip in the right atrium. This could be retracted 2.5 cm for positioning at the cavoatrial junction
[2024-03-20] MEDS: insulin lispro 100 unit/1 mL SUBCUT ×3 (09:25→17:36)
[2024-03-20] MEDS: sennosides-docusate Tablet 2 TAB PO ×2 (09:26→17:36)
[2024-03-20] MEDS: heparin 5,000 unit/mL INJ 1 mL 5000 UNIT SUBCUT (09:26)
--- NOTE | 2024-03-20 09:41 | PICC.NOTE ---
Single lumen PICC placed to right basilic vein. Referred to vascular access nurse for PICC placement due to need for IV antibiotics x 6 weeks. Risks and benefits discussed and informed consent obtained from patient. Right arm assessed with right basilic vein measuring 4.6 mm, straight, and apparent best choice for placement. Using sterile technique and MST,right basilic vein accessed x 1 stick. Mid-arm circumference measured 10 cm from right AC 25 cm. Trimmed cath 46 cm with 4.5 cm external length noted. CXR shows tip in right atrium. Radioligist recommended retracting 2.5 cm for optimal placement at cavoatrial junction. PICC retracted 2.5 cm for total external length 4.5 cm. Line secured with stat-lock. Insertion site covered with Biopatch, gauze, and TSM. Report given to bedside nurseHeath.
--- NOTE | 2024-03-20 10:51 | PM.PN ---
Subjective Subjective: Afebrile Culture showing MSSA Plan for washout tomorrow Will keep n.p.o. after midnight PICC line placed today Wound VAC might get discontinued before discharge but it depends on the findings intraoperative, tomorrow will have final decision regarding wound VAC continuation at discharge Patient will need 6 weeks of IV antibiotics for sure at the time of discharge Vitals/I&O/Wt Last Vital Signs Temp 97.6 F 03/20/24 08:48 Pulse 76 03/20/24 10:31 Resp 16 03/20/24 10:31 BP 132/76 03/20/24 08:48 Pulse Ox 96 03/20/24 10:31 O2 Del Method Room Air 03/20/24 10:31 O2 Flow Rate 8 03/18/24 10:58 03/19/24 03/20/24 03/20/24 22:59 06:59 14:59 Intake Total 780 / 1653.958 316.667 / 1970.625 360 / 360 Output Total 1999 / 1999 2400 / 4400 200 / 200 Balance -1220 / -346.042 -2083.333 / -2429.375 160 / 160 Weight last 48 hrs Weight 86.954 kg Weight 85.774 kg Physical Exam Narrative: Awake and alert GCS 15 Foot covered with dressing No sign of vascular compromise Hemodynamic stable On room air Abdomen soft S1, S2 Urinary Catheter Management: Dixon: Cath Placed During This Visit: yes Reason for Continuing Indwelling Catheter: Other Urinary Catheter Date of Insertion: 03/16/24 Urinary Catheter Time of Insertion: 21:30 Data 03/20/24 03:15 03/20/24 03:15 Micro: Microbiology 03/18/24 10:18 Anaerobic Culture - Preliminary Foot - #1 03/18/24 10:18 Gram Stain - Final Other Source Abscess Culture - Preliminary A&P Assessment and plan (1) Elevated lactic acid level: (2) Cellulitis of foot, left: (3) Abscess of left foot: (4) Carbuncle, neck: (5) Osteomyelitis: (6) Type 2 diabetes mellitus: (7) Encounter for management of vacuum-assisted closure (VAC) of wound: Plan MSSA positive from wound Report from OR culture pending Afebrile Osteomyelitis will need 6 weeks IV antibiotics for MSSA Final decision regarding wound VAC will be made after second exploration of wound tomorrow as per Dr. Crews Full code N.p.o. after midnight Hold DVT prophylaxis of heparin today Continue antibiotics Patient okay to use crutches and wheelchair PCP to follow-up for antibiotics outpatient Attestations Medical Necessity Statement*: Continue medical management Diagnoses Elevated lactic acid level R79.89 Cellulitis of foot, left L03.116 Abscess of left foot L02.612 Carbuncle, neck L02.13 Osteomyelitis M86.9 Type 2 diabetes mellitus E11.9 Encounter for management of vacuum-assisted closure (VAC) of wound Z46.89
[2024-03-21] VITALS (18 sets, daily range): BP systolic 114–157; BP diastolic 72–89; PULSE 72–85; RESP 16–19; TEMP 36.3–36.8; O2SAT 89–100
--- NOTE | 2024-03-21 05:55 | PC.NURSE ---
Report given to pre-op nurse Sabra at 0545 via phone call. Pre-op nurse transported pt off the floor at 0556.
[2024-03-21 05:58] LABS: Basophils # 0.1 10^3/uL (0.0-0.1); Basophils % 0.5 %; Eosinophils # 0.3 10^3/uL (0.0-0.8); Eosinophils % 3.1 %; Hematocrit 37.8 % (37-53); Lymphocytes # 1.2 10^3/uL (0.8-4.8); Lymphocytes % 12.1 %; Mean Corpuscular HGB Conc 32.8 g/dL (30-55); Mean Corpuscular Hemoglobin 28.1 pg (27-33); Mean Corpuscular Volume 85.7 fl (82-101); Mean Platelet Volume 9.3 fL (7.4-10.4); Monocytes # 0.6 10^3/uL (0.2-0.9); Neutrophils # 7.87 10^3/uL (1.8-7.7); Neutrophils % 76.8 %; Nucleated Red Blood Cells % 0 %; Platelet Count 412 10^3/cmm (157-399); Red Blood Count 4.41 10^6/uL (3.85-5.65); Red Cell Distribution Width 12.4 % (12.1-15.1); White Blood Count 10.24 10^3/uL (3.29-11.43)
[2024-03-21 06:13] LABS: Anion Gap 16.2 (5-19); Blood Urea Nitrogen 16 mg/dL (8-23); C Reactive Protein 40.3 mg/L (0.0-4.9); Calcium 8.8 mg/dL (8.5-10.5); Carbon Dioxide 22 mmol/L (22-29); Chloride 98 mmol/L (98-107); Creatinine Clr Calc Pharmacy 122.6613; Glomerular Filtration Rate 114.6 mL/min (90-130); Glucose 156 mg/dL (65-115); Osmolality Calculated 278 mOsm/kg (285-295); Potassium 4.2 mmol/L (3.5-5.1); Sodium 132 mmol/L (136-145)
[2024-03-21] MEDS: sodium chloride 0.9% 1,000 ML 30 ML IV (06:30)
[2024-03-21] MEDS: vancomycin 1,250 MG/250 ML PIGGYBACK 250 MG IV (06:31)
--- NOTE | 2024-03-21 06:41 | P.HPUD_ITS ---
Surgery/Procedure H&P Update DATE OF PROCEDURE: March 21, 2024 DATE H&P PERFORMED: 03/20/24 H&P UPDATE INFORMATION: I have reviewed H&P completed within last 30 days, I have examined patient prior to procedure, No changes to prior documentation and H&P is in [facility] [place] [facility] EMR on date indicated PLANNED PROCEDURE: Operation Date: 03/18/24 09:10 Proposed Procedures p Left foot Incision And Drainage(Left) - Andrew Crews DPM Operation Date: 03/21/24 07:00 Proposed Procedures p Delayed Wound Closure(Left) - Andrew Crews DPM
--- NOTE | 2024-03-21 06:47 | P.ANESASSM_ITS ---
Pre-Anesthetic Assessment Height/Weight: Height 1.78 m Weight 86.137 kg Temp Pulse Resp BP Pulse Ox O2 Del Method O2 Flow Rate 97.7 F 82 16 114/77 97 Room Air 8 03/21/24 06:17 03/21/24 06:17 03/21/24 06:17 03/21/24 06:17 03/21/24 06:17 03/21/24 06:17 03/18/24 10:58 Operation Date: 03/18/24 09:10 Proposed Procedures p Left foot Incision And Drainage(Left) - Andrew Crews DPM Operation Date: 03/21/24 07:00 Proposed Procedures p Delayed Wound Closure(Left) - Andrew Crews DPM Familial anesthetic complications: None Was Beta Cheri taken within 24 hours: N/A Was Clonidine taken within 24 hours: N/A Last intake: Intake Last Liquid Date 03/20/24 Last Liquid Time 22:30 Last Solid Date 03/20/24 Last Solid Time 22:30 Social No alcohol and No tobacco Exam alert, oriented x 3, clear to auscultation bilaterally and regular rate & rhythm Airway Mallampati: Class II Dentition: other (very poor dentition, multiple missing) CV/HEM Hypertension Metabolic Diabetes Mellitus and Hyperlipidemia Anesthetic Plan ASA status: 3 Anesthesia: General Risk of > 500 ml blood loss (7ml/kg in children): No Medications/Allergies Home Medications Medication Instructions Recorded Confirmed Last Taken Type acetaminophen 500 mg tablet 1,000 mg PO Q6H PRN Pain 03/17/23 03/17/24 Unknown History blood-glucose meter (Glucocard 01 #1 ea 03/25/23 03/17/24 Unknown Rx Meter kit) lancets #100 03/25/23 03/17/24 Unknown Rx pen needle, diabetic 32 gauge x #50 ea 03/25/23 03/17/24 Unknown Rx 1/4 (BD Ultra-Fine Micro Pen Needle) amoxicillin 875 mg-potassium 1 tab PO Q12H 03/16/24 03/17/24 03/16/24 History clavulanate 125 mg tablet metformin 1,000 mg tablet 1,000 mg PO BID 03/16/24 03/17/24 Unknown History metformin 500 mg tablet 500 mg PO BID 03/16/24 03/17/24 03/16/24 History doxycycline hyclate 100 mg capsule 100 mg PO BID 03/17/24 03/17/24 03/16/24 History Allergies Allergy/AdvReac Type Severity Reaction Status Date / Time No Known Allergies Allergy Verified 03/16/24 15:00 Current Medications Generic Name Dose Route Start Last Admin Trade Name Freq PRN Reason Stop Dose Admin Hydrocodone Bitart/Acetaminophen 1 tab 03/16/24 18:40 03/20/24 00:19 Hydrocodone-Acetaminophen 5-325 Mg Tablet PO 1 tab Q4H PRN Administration MODERATE PAIN Heparin Sodium (Porcine) 5,000 unit 03/19/24 08:45 03/20/24 09:26 Heparin 5,000 Unit/Ml Inj 1 Ml SUBCUT 5,000 unit Q12H JAQUELINE Administration Piperacillin Sod/Tazobactam 50 mls @ 12.5 mls/hr 03/16/24 19:30 03/21/24 05:57 Sod 3.375 gm/ Sodium Chloride IV Not Given Q8H JAQUELINE Protocol As Directed Vancomycin HCl 1,250 mg in 250 mls @ 200 mls/hr 03/17/24 06:15 03/21/24 06:31 Vancocin IV 250 mls/hr Q12H JAQUELINE Administration Sodium Chloride 1,000 mls @ 30 mls/hr 03/21/24 06:30 03/21/24 06:30 Sodium Chloride 0.9% IV 30 mls/hr .Q24H JAQUELINE Administration Insulin Human Lispro 0 unit 03/17/24 08:00 03/20/24 17:36 Insulin Lispro 100 Unit/1 Ml SUBCUT 6 unit TIDWM JAQUELINE Administration Protocol Ondansetron HCl 4 mg 03/16/24 18:40 03/18/24 17:48 Ondansetron 2 Mg/Ml Sdv 2 Ml IVP 4 mg Q6H PRN Administration NAUSEA AND VOMITING Senna/Docusate Sodium 2 tab 03/17/24 09:00 03/20/24 17:36 Sennosides-Docusate Tablet PO 2 tab BID JAQUELINE Administration PFSH Anesthesia Medical History Hypertension Newly diagnosed diabetes Dyslipidemia (high LDL; low HDL) Umbilical hernia Surgical History History of hernia repair Social History Smoking and tobacco/nicotine status: unknown if used tobacco/nicotine Alcohol intake: never Substance/Drug Use: never Data Anesthesia 03/21/24 05:47 03/21/24 05:47 Short CBC 03/20/24 03/21/24 03/21/24 Range/Units 03:15 05:11 05:47 WBC 10.34 Cancelled 10.24 (3.29-11.43) 10^3/uL Hgb 12.00 Cancelled 12.40 (11.27-16.99) g/dL Hct 37.2 Cancelled 37.8 (37-53) % MCV 87.1 Cancelled 85.7 (82-101) fl Plt Count 439 H Cancelled 412 H (157-399) 10^3/cmm Neut % (Auto) 72.9 Cancelled 76.8 % Neut # (Auto) 7.54 Cancelled 7.87 H (1.8-7.7) 10^3/uL BMP 03/20/24 03/21/24 03/21/24 03:15 05:11 05:47 Sodium 134 L Cancelled 132 L Potassium 4.6 Cancelled 4.2 Chloride 97 L Cancelled 98 Carbon Dioxide 26 Cancelled 22 BUN 14 Cancelled 16 Creatinine 0.8 Cancelled 0.7 Glucose 147 H Cancelled 156 H Calcium 9.0 Cancelled 8.8 Coags 03/21/24 03/21/24 05:11 05:47 C-Reactive Protein Cancelled 40.3 H Microbiology 03/18/24 10:18 Gram Stain - Final Other Source Abscess Culture - Preliminary Coag positive Staphylococcus Streptococcus Group C 03/18/24 10:18 Anaerobic Culture - Preliminary Foot - #1 Cardiac Studies: 2 No Data to Display
--- NOTE | 2024-03-21 07:37 | SUR.OPER ---
WOUND VAC REMOVED FROM LEFT FOOT.
[2024-03-21] MEDS: BUPivacaine 0.5% INJ 30 mL INJECTION (07:44)
--- NOTE | 2024-03-21 07:53 | W.PM.BPON ---
Date of procedure: 03/21/2024 Surgeon name: Luisana WalshPAlisha Accounting Bookkeeper(s) name(s): Darryl Procedure(s) performed: Left foot delayed primary closure Description of findings: Closed wound left foot. No further purulence visualized. Concern for necrosis of posterior left heel overlying Achilles tendon Estimated blood loss: 5 cc Tourniquet time: No tourniquet used Specimen(s) removed: None Post-operative diagnosis: Abscess left foot
--- NOTE | 2024-03-21 08:35 | ANE.PACU2 ---
Inpatient post-anesthesia follow up: Airway intact: Yes Vital signs: Temperature 98.2 F Pulse Rate 82 Respiratory Rate 18 Blood Pressure 136/84 Pulse Oximetry 95 Oxygen Delivery Me thod Room Air Oxygen Flow Rate 4 Fraction of Inspir ed Oxygen Hydration adequate: Yes Nausea and vomiting: No Pain level: 1 Mental status: Baseline
--- NOTE | 2024-03-21 08:37 | PM.DCS ---
Discharge Providers Date of Admission: 03/16/24 18:05 Date of Discharge: March 21, 2024 Attending Provider at Admission: Jess Samuel MD Attending Provider at Discharge: Jess Samuel MD Primary Care Provider: Warren Pete MD Diagnoses at Discharge Discharge Diagnosis (1) Elevated lactic acid level: Status: Acute (2) Cellulitis of foot, left: Status: Acute (3) Abscess of left foot: Status: Acute (4) Carbuncle, neck: Status: Acute (5) Osteomyelitis: Status: Acute (6) Type 2 diabetes mellitus: Status: Acute (7) Encounter for management of vacuum-assisted closure (VAC) of wound: Status: Acute Reason for Visit Reason for Visit: foot injury/pain Hospital Course Hospital Course 59-year male who was admitted for management evaluation of worsening of left heel ulcer with turned into purulent cellulitis with abscess and osteomyelitis which was confirmed with the MRI, podiatry was consulted, patient went for intervention:Large left foot abscess to lateral left calcaneus enveloping the Achilles tendon and retrocalcaneal bursal area. Purulence extended along plantar aspect of foot towards the trent pedis on the medial side. Abscess also tracked proximally behind the peroneal tendon sheath in the retromalleolar area Wound VAC was placed, delayed primary closure was achieved on 03/21 wound VAC was removed, cultures are showing group C strep and MSSA I called micro lab sensitivity to ceftriaxone is less than 8 EVE, PICC line has been placed he will be discharged on 6 weeks therapy of ceftriaxone 2 g daily with outpatient PCP follow-up along podiatry. Physical Exam Narrative: Awake and alert GCS 15 Left foot covered with dressing Pleasant cooperative No sign of vascular compromise S1, S2 Urinary Catheter Management: Dixon: Cath Placed During This Visit: yes Reason for Continuing Indwelling Catheter: Other Urinary Catheter Date of Insertion: 03/16/24 Urinary Catheter Time of Insertion: 21:30 Discharge Data Studies Completed and Pending Completed Studies During Hospitalization Category Date Time Status CT foot LT w con [id number] Routine Cat Scan 03/16/24 18:40 Completed CXRP [XR chest 1V portable [id number]] Routine Exams 03/20/24 08:20 Completed XR foot LT min 3V* [id number] Stat Exams 03/16/24 16:11 Completed MR ankle LT wo/w con [id number] Stat MRI 03/17/24 19:00 Completed Pending at discharge Category Date Time Status Abscess Culture and Gram Stain Routine Lab 03/18/24 10:18 Results Anaerobic Culture Routine Lab 03/18/24 10:18 Results Blood Culture Stat Lab 03/16/24 17:02 Results Radiology Impressions Foot X-Ray 03/16/24 16:11 Impression: There is soft tissue swelling present. If a soft tissue abscess is of concern directed ultrasound or CT postcontrast is recommended for further evaluation. Osteomyelitis would be best visualized by MRI if clinically indicated.. Foot CT 03/16/24 18:40 IMPRESSION: 1. Findings compatible with cellulitis concentrated about the calcaneal fat pad. 2. Small artery are organizing rim enhancing fluid collection is noted within the calcaneal fat pad with the additional finding of possible sinus tract/overlying calcaneal cutaneous injury/ulceration. Correlate with physical exam. 3. No acute or aggressive osseous abnormality. Ankle MRI 03/17/24 19:00 IMPRESSION: 1. Large area of osteomyelitis involving the calcaneus. Osteomyelitis involves the inferior third of the measuring 5.2 x 2.2 cm. 2. There is a large amount of cellulitis surrounding the ankle and foot. 3. Fluid collections along the calcaneal fat pad and over the lateral calcaneus do not significantly enhance but with the extent of disease abscess should be considered also. The fluid extends along the distal Achilles tendon sheath. 4. Suspected necrotic osseous fragment in the posterior calcaneus. Chest X-Ray 03/20/24 08:20 IMPRESSION: Placement of a right PICC line with its tip in the right atrium. This could be retracted 2.5 cm for positioning at the cavoatrial junction Laboratory Results WBC 10.24 10^3/uL (3.29-11.43) 03/21/24 05:47 Corrected WBC Cancelled 03/21/24 05:11 RBC 4.41 10^6/uL (3.85-5.65) 03/21/24 05:47 Hgb 12.40 g/dL (11.27-16.99) 03/21/24 05:47 Hct 37.8 % (37-53) 03/21/24 05:47 MCV 85.7 fl (82-101) 03/21/24 05:47 MCH 28.1 pg (27-33) 03/21/24 05:47 MCHC 32.8 g/dL (30-55) 03/21/24 05:47 RDW 12.4 % (12.1-15.1) 03/21/24 05:47 Plt Count 412 10^3/cmm (157-399) H 03/21/24 05:47 MPV 9.3 fL (7.4-10.4) 03/21/24 05:47 Gran % Cancelled 03/21/24 05:11 Neut % (Auto) 76.8 % 03/21/24 05:47 Lymph % (Auto) 12.1 % 03/21/24 05:47 [place] % (Auto) 6.0 % 03/21/24 05:47 Eos % (Auto) 3.1 % 03/21/24 05:47 Baso % (Auto) 0.5 % 03/21/24 05:47 Neut # (Auto) 7.87 10^3/uL (1.8-7.7) H 03/21/24 05:47 Lymph # (Auto) 1.2 10^3/uL (0.8-4.8) 03/21/24 05:47 [place] # (Auto) 0.6 10^3/uL (0.2-0.9) 03/21/24 05:47 Eos # (Auto) 0.3 10^3/uL (0.0-0.8) 03/21/24 05:47 Baso # (Auto) 0.1 10^3/uL (0.0-0.1) 03/21/24 05:47 Absolute Gran (auto) Cancelled 03/21/24 05:11 Nucleated RBC % (auto) 0 % 03/21/24 05:47 Nucleated RBCs # 0.0 /100WBC 03/21/24 05:47 ESR 46 mm/hr (0-10) H 03/16/24 17:02 Sodium 132 mmol/L (136-145) L 03/21/24 05:47 Potassium 4.2 mmol/L (3.5-5.1) 03/21/24 05:47 Chloride 98 mmol/L (98-107) 03/21/24 05:47 Carbon Dioxide 22 mmol/L (22-29) 03/21/24 05:47 Anion Gap 16.2 (5-19) 03/21/24 05:47 BUN 16 mg/dL (8-23) 03/21/24 05:47 Creatinine 0.7 mg/dL (0.7-1.2) 03/21/24 05:47 GFR Calculation 114.6 mL/min (90-130) 03/21/24 05:47 Glucose 156 mg/dL (65-115) H 03/21/24 05:47 POC Glucose 150 mg/dL (70-110) H 03/20/24 06:16 Estimat Average Glucose 186 03/16/24 17:02 Hemoglobin A1c 8.1 % (4.0-6.0) H 03/16/24 17:02 Calculated Osmolality 278 mOsm/kg (285-295) L 03/21/24 05:47 Lactic Acid 1.7 mmol/L (0.5-2.2) 03/16/24 17:02 Calcium 8.8 mg/dL (8.5-10.5) 03/21/24 05:47 Phosphorus 3.8 mg/dL (2.5-4.5) 03/17/24 04:30 Magnesium 2.0 mg/dL (1.7-2.3) 03/19/24 00:45 Total Bilirubin 0.4 mg/dL (0.15-1.2) 03/19/24 00:45 AST 16 U/L (0-40) 03/19/24 00:45 ALT 17 U/L (0-41) 03/19/24 00:45 Alkaline Phosphatase 61 U/L (40-130) 03/19/24 00:45 Troponin T Baseline 12 ng/L (0-15) 03/18/24 18:09 Troponin T 120 Minute 12.02 ng/L (0-15) 03/18/24 19:57 Delta Troponin T 0.02 ABS# (0-10) 03/18/24 19:57 Troponin T Hi Sens 6Hr 14.01 ng/L (0-15) 03/19/24 00:45 Troponin T Hi Sens 6Hr Delta 2.01 ng/L (0-12) 03/19/24 00:45 C-Reactive Protein 40.3 mg/L (0.0-4.9) H 03/21/24 05:47 Total Protein 6.8 g/dL (6.6-8.7) 03/19/24 00:45 Albumin 3.5 g/dL (3.5-5.2) 03/19/24 00:45 Globulin 3.3 g/dL (1.3-4.6) 03/19/24 00:45 Vitamin B12 428 pg/mL (232-1245) 03/16/24 17:02 Procalcitonin 0.13 ng/mL (0-0.5) 03/16/24 17:02 Vancomycin Trough 13.8 ug/mL (10-15) 03/19/24 17:20 Vitals Last Vital Signs Temp 98.1 F 03/21/24 08:31 Pulse 77 03/21/24 08:31 Resp 16 03/21/24 08:31 BP 126/79 03/21/24 08:31 Pulse Ox 93 03/21/24 08:31 O2 Del Method Room Air 03/21/24 08:31 O2 Flow Rate 4 03/21/24 08:11 Discharge Plan Discharge Patient Disposition: Home Condition: Stable Prescriptions: New hydrocodone-acetaminophen 5-325 mg Tablet 1 tab PO BID PRN (Reason: Moderate Pain) Qty: 12 0RF sennosides-docusate sodium [Stool Softener-Laxative] 8.6-50 mg Tablet 2 tab PO BEDTIME Qty: 30 0RF Januvia 25 mg tablet 25 mg PO DAILY Qty: 30 3RF Continued metformin 500 mg tablet 500 mg PO BID metformin 1,000 mg tablet 1,000 mg PO BID acetaminophen 500 mg Tablet 1,000 mg PO Q6H PRN (Reason: Pain) (DME) pen needle, diabetic [BD Ultra-Fine Micro Pen Needle] 32 gauge x 1/4 needle See Rx Instructions .ROUTE .MEDSUPPLY Qty: 50 0RF Rx Instructions: As directed (DME) blood-glucose meter [Glucocard 01 Meter] Kit See Rx Instructions .ROUTE .MEDSUPPLY Qty: 1 0RF Rx Instructions: As directed (DME) lancets Misc See Rx Instructions .ROUTE .MEDSUPPLY Qty: 100 0RF Rx Instructions: As directed Discontinued amoxicillin-pot clavulanate 875-125 mg tablet 1 tab PO Q12H doxycycline hyclate 100 mg capsule 100 mg PO BID Discharge Orders: Discharge Order (Routine); Ordered 03/21/24 Ordered By: Mercado Jimmie Other Ambulatory Orders: Basic Metabolic Panel ( DIRECTED) Timeframe: 20240328 Facility: [facility] - Location: Lab - Main Lab Ordered By: Jess Samuel Basic Metabolic Panel ( DIRECTED) Timeframe: 20240329 Facility: [facility] - Location: Lab - Main Lab Ordered By: Jess Samuel Basic Metabolic Panel ( DIRECTED) Timeframe: [id number] Facility: [facility] - Location: Lab - Main Lab Ordered By: Jess Samuel Basic Metabolic Panel ( DIRECTED) Timeframe: 20240331 Facility: [facility] - Location: Lab - Main Lab Ordered By: Jess Samuel Basic Metabolic Panel ( DIRECTED) Timeframe: [id number] Facility: [facility] - Location: Lab - Main Lab Ordered By: Jess Samuel Basic Metabolic Panel ( DIRECTED) Timeframe: [id number] Facility: [facility] - Location: Lab - Main Lab Ordered By: Jess Samuel Referrals: Warren Pete MD [Primary Care Provider] - Patient Instructions: Acute Wound Care (DC), Opioid Safety, Post Anesthesia Care Discharge Attestations Time Spent in Discharge Care*: greater than 30 min Status at Discharge: Cognitive status at discharge: cognitively intact, Behavioral status at discharge: cooperative, Quality Metrics Clinical Quality Measures [ No reported AMI, CVA or VTE this stay] Coding Level of Care Code Acute Code for Chg Fwd Diagnoses Elevated lactic acid level R79.89 Cellulitis of foot, left L03.116 Abscess of left foot L02.612 Carbuncle, neck L02.13 Osteomyelitis M86.9 Type 2 diabetes mellitus E11.9 Encounter for management of vacuum-assisted closure (VAC) of wound Z46.89
--- NOTE | 2024-03-21 08:56 | PM.OP ---
Operative Report Date of procedure: March 21, 2024 Pre-op diagnosis: Left foot abscess, osteomyelitis Post-op diagnosis: Same Post-op findings: Posterior left heel overlying Achilles and retrocalcaneal bursa shows ischemic changes concern for long-term necrosis of the skin flap. Procedure done: Left foot washout with delayed primary closure Surgeon: Andrew Crews DPM Estimated blood loss: 5 cc Complications: None Findings: See above Procedure: The patient presents with a severe foot infection involving left foot posterior heel. Patient is status post incision and drainage. The infection is complicated by underlying conditions, including diabetes, peripheral vascular disease, which have contributed to the progression of the infection despite conservative management. Preoperative imaging and laboratory results indicate osteomyelitis, necessitating surgical intervention. The planned procedure is intended to perform delayed primary closure and assess the viability of surrounding structures to prevent further complications. The patient has been NPO since midnight. The history has been reviewed and the history and physical is current. The signed consent was confirmed and placed in the patient chart. Patient imaging has been reviewed and is consistent with the diagnosis. Under mild sedation, the patient was brought into the operating room and placed on the table in the [ ] position. Patient is receiving antibiotics around the clock on the floor, Therefore, additional antibiotic prophylaxix was not administered. [ ] sedation was then performed by the anesthesiateam. A pneumatic tourniquet was then placed about the [ ]. The operative extremity was then prepped and draped in the usual fashion. After prep, the following procedure was then performed.
[2024-03-21] MEDS: heparin 5,000 unit/mL INJ 1 mL 5000 UNIT SUBCUT (12:49)
[2024-03-21] MEDS: sennosides-docusate Tablet 2 TAB PO (12:49)
[2024-03-21] MEDS: insulin lispro 100 unit/1 mL SUBCUT (12:50)
[2024-03-21] MEDS: piperacillin-tazobactam 3.375 GM in sodium chloride 0.9% (plus) 50 ML IV (12:50)
[2024-03-21] MEDS: acetaminophen 500 mg Tablet PO (12:54)
[2024-03-21] MEDS: cefTRIAXone 2,000 mg SDV 2000 MG IVP (16:12)
== END 2024-03-21 17:50 | disposition home or self-care (01) | DRG 629 ==
LOC: ER 17:36 → MEDSURG 18:05
PROVIDERS: Internal Medicine; Podiatrist Foot & Ankle Surgery; Admitting Provider Internal Medicine; Emergency Provider Emergency Medicine; PCP Family Medicine Adult Medicine; Visit Provider Internal Medicine
PROC: 0J9R0ZZ Drainage of Left Foot Subcutaneous Tissue and Fascia, Open Approach (ICD-10-PCS; principal; 2024-03-18 09:00)
PROC: 0JQR0ZZ Repair Left Foot Subcutaneous Tissue and Fascia, Open Approach (ICD-10-PCS; CPT 13160; principal; 2024-03-21 07:00)
DX: E11.69 Type 2 diabetes mellitus with other specified complication (principal); E87.1 Hypo-osmolality and hyponatremia; L02.612 Cutaneous abscess of left foot; L97.429 Non-pressure chronic ulcer of left heel and midfoot with unspecified severity; M86.9 Osteomyelitis, unspecified; L03.116 Cellulitis of left lower limb; E11.621 Type 2 diabetes mellitus with foot ulcer; Z79.84 Long term (current) use of oral hypoglycemic drugs; I10 Essential (primary) hypertension; E78.5 Hyperlipidemia, unspecified; Z86.14 Personal history of Methicillin resistant Staphylococcus aureus infection; B95.61 Methicillin susceptible Staphylococcus aureus infection as the cause of diseases classified elsewhere; L02.13 Carbuncle of neck
CPT/HCPCS: 36415; 36416; 36573; 36592; 51702; 71045; 73630; 73701; 73723; 80048; 80053; 80202; 82607; 82962; 83036; 83605; 83735; 84100; 84145; 84484; 85025; 85651; 86140; 87040; 87070; 87075; 87077; 87186; 87205; 93005; 96365; 96372; 99285; A9577; J0330; J0696; J1100; J1644; J1815; J2371; J2405; J2543; J2704; J3010; J3370; J3490; J7030; J7050; Q9967

== ENCOUNTER → 2024-03-29 15:41 | Outpatient (BNVA) | payer MEDICAID, SELFPAY | PROVIDERS: PCP Family Medicine Adult Medicine; Visit Provider Podiatrist Foot & Ankle Surgery | DX: M86.9 Osteomyelitis, unspecified (principal) | CPT/HCPCS: 36415; 80053; 85007; 85027; 85651; 86140 ==

== ENCOUNTER 2024-04-26 13:18 | Oncology outpatient (recurring) (ONCR) | payer MEDICAID, SELFPAY ==
[2024-04-05 16:54] LABS: Basophils % 0.5 %; Eosinophils # 0.2 10^3/uL (0.0-0.8); Eosinophils % 2.6 %; Hematocrit 36.4 % (37-53); Lymphocytes # 0.6 10^3/uL (0.8-4.8); Lymphocytes % 10.7 %; Mean Corpuscular HGB Conc 33.2 g/dL (30-55); Mean Corpuscular Hemoglobin 28.6 pg (27-33); Mean Corpuscular Volume 86.1 fl (82-101); Mean Platelet Volume 10.1 fL (7.4-10.4); Monocytes # 0.5 10^3/uL (0.2-0.9); Monocytes % 8.6 %; Neutrophils # 4.41 10^3/uL (1.8-7.7); Neutrophils % 77.4 %; Nucleated Red Blood Cells % 0 %; Platelet Count 204 10^3/cmm (157-399); Red Blood Count 4.23 10^6/uL (3.85-5.65); Red Cell Distribution Width 13.5 % (12.1-15.1)
[2024-04-05 17:26] LABS: Alanine Aminotransferase 19 U/L (0-41); Albumin Level 4.2 g/dL (3.5-5.2); Alkaline Phosphatase 60 U/L (40-130); Anion Gap 14.6 (5-19); Aspartate Amino Transferase 20 U/L (0-40); Blood Urea Nitrogen 16 mg/dL (8-23); Calcium 9.3 mg/dL (8.5-10.5); Carbon Dioxide 25 mmol/L (22-29); Chloride 99 mmol/L (98-107); Globulin 3.1 g/dL (1.3-4.6); Glomerular Filtration Rate 85.8 mL/min (90-130); Glucose 148 mg/dL (65-115); Osmolality Calculated 282 mOsm/kg (285-295); Potassium 4.6 mmol/L (3.5-5.1); Sodium 134 mmol/L (136-145); Total Bilirubin 0.4 mg/dL (0.15-1.2); Total Protein 7.3 g/dL (6.6-8.7)
[2024-04-12 16:06] VITALS: PULSE 68; RESP 16; TEMP 36.5; O2SAT 98
--- NOTE | 2024-04-21 12:00 | PC.NURSE ---
Pt to GI lab for PICC dressing change and lab draw. Pt states he was unaware he had an appointment at [facility] for lab change and dressing change on 04/19/24. Pt given next scheduled [facility] appointment for 04/26/24 at 4:30 pm. Verbalized understanding. PICC insertion site clear with no signs of redness, drainage, or infection. Dressing changed using sterile technique. Insertion site cleansed with CHG and covered with Biopatch. Line secured with stat-lock and covered with Sorbaview shield. Pt tolerated well. Labs drawn as ordered per Dr. Crews. Lab techs informed that labs need faxed to home infusion company when resulted.
[2024-04-21 12:51] LABS: Erythrocyte Sedimentation Rate 25 mm/hr (0-10)
[2024-04-21 12:54] LABS: Hematocrit 37.6 % (37-53); Mean Corpuscular HGB Conc 33.5 g/dL (30-55); Mean Corpuscular Hemoglobin 28.1 pg (27-33); Mean Corpuscular Volume 83.9 fl (82-101); Mean Platelet Volume 9.7 fL (7.4-10.4); Platelet Count 365 10^3/cmm (157-399); Red Blood Count 4.48 10^6/uL (3.85-5.65); Red Cell Distribution Width 13.5 % (12.1-15.1); White Blood Count 7.93 10^3/uL (3.29-11.43)
[2024-04-21 13:05] LABS: Total Cells Counted 100 (0-100)
[2024-04-21 13:08] LABS: Absolute Neutrophil 5.5 10^3/cmm (1.4-6.5); Absolute Segmented Neutrophil 5.5 10/cmm (1.6-7.1); Anisocytosis 1+; Eosinophils 0 %; Lymphocytes 24 %; Lymphocytes Absolute 1.9 10^3/cmm (1.2-3.4); Monocytes Absolute 0.6 10^3/cmm (0.1-0.6); Platelet Estimate Normal (Normal); Segmented Neutrophils 69 %
[2024-04-21 13:15] LABS: Alanine Aminotransferase 16 U/L (0-41); Albumin Level 4.2 g/dL (3.5-5.2); Alkaline Phosphatase 73 U/L (40-130); Anion Gap 15.6 (5-19); Aspartate Amino Transferase 17 U/L (0-40); Blood Urea Nitrogen 12 mg/dL (8-23); C Reactive Protein 4.3 mg/L (0.0-4.9); Calcium 9.7 mg/dL (8.5-10.5); Carbon Dioxide 25 mmol/L (22-29); Chloride 95 mmol/L (98-107); Globulin 3.3 g/dL (1.3-4.6); Glomerular Filtration Rate 114.6 mL/min (90-130); Glucose 157 mg/dL (65-115); Osmolality Calculated 275 mOsm/kg (285-295); Potassium 4.6 mmol/L (3.5-5.1); Sodium 131 mmol/L (136-145); Total Bilirubin 0.4 mg/dL (0.15-1.2); Total Protein 7.5 g/dL (6.6-8.7)
[2024-04-26 13:56] LABS: Eosinophils % 0.2 %; Lymphocytes # 1.5 10^3/uL (0.8-4.8); Lymphocytes % 23.5 %; Mean Corpuscular HGB Conc 33.2 g/dL (30-55); Mean Corpuscular Hemoglobin 27.6 pg (27-33); Mean Corpuscular Volume 83.3 fl (82-101); Mean Platelet Volume 9.5 fL (7.4-10.4); Monocytes # 0.5 10^3/uL (0.2-0.9); Monocytes % 8.8 %; Neutrophils # 4.14 10^3/uL (1.8-7.7); Neutrophils % 67.2 %; Nucleated Red Blood Cells % 0 %; Platelet Count 319 10^3/cmm (157-399); Red Blood Count 4.56 10^6/uL (3.85-5.65); Red Cell Distribution Width 13.2 % (12.1-15.1); White Blood Count 6.16 10^3/uL (3.29-11.43)
[2024-04-26 14:21] LABS: Alanine Aminotransferase 14 U/L (0-41); Albumin Level 4.1 g/dL (3.5-5.2); Alkaline Phosphatase 76 U/L (40-130); Anion Gap 14.1 (5-19); Aspartate Amino Transferase 16 U/L (0-40); Blood Urea Nitrogen 11 mg/dL (8-23); Calcium 9.1 mg/dL (8.5-10.5); Carbon Dioxide 26 mmol/L (22-29); Chloride 98 mmol/L (98-107); Globulin 3.4 g/dL (1.3-4.6); Glomerular Filtration Rate 114.6 mL/min (90-130); Glucose 97 mg/dL (65-115); Osmolality Calculated 277 mOsm/kg (285-295); Potassium 4.1 mmol/L (3.5-5.1); Sodium 134 mmol/L (136-145); Total Bilirubin 0.2 mg/dL (0.15-1.2); Total Protein 7.5 g/dL (6.6-8.7)
== END 2024-05-01 23:59 | disposition home or self-care (01) ==
PROVIDERS: Internal Medicine; Podiatrist Foot & Ankle Surgery; PCP Family Medicine Adult Medicine; Visit Provider Internal Medicine Medical Oncology
DX: Z53.9 Procedure and treatment not carried out, unspecified reason (principal); M86.9 Osteomyelitis, unspecified
CPT/HCPCS: 36592; 80053; 85007; 85025; 85027; 85651; 86140

== ENCOUNTER → 2025-04-12 13:07 | Outpatient (BNVA) | payer MEDICAID, SELFPAY | PROVIDERS: PCP Family Medicine Adult Medicine; Visit Provider Podiatrist Foot & Ankle Surgery | DX: M79.671 Pain in right foot (principal); E11.69 Type 2 diabetes mellitus with other specified complication; L03.221 Cellulitis of neck; Z79.84 Long term (current) use of oral hypoglycemic drugs | CPT/HCPCS: 73630 ==